=== PATIENT | male | born 1940 | race Caucasian/White ===

== ENCOUNTER 2019-07-14 14:25 | Outpatient (RCR) | payer MEDICARE, SELFPAY | END 2019-10-12 23:59 | disposition home or self-care (01) | LOC: ANHDMC 14:25 | PROVIDERS: PCP Family Medicine; Visit Provider Family Medicine | DX: E11.65 Type 2 diabetes mellitus with hyperglycemia (principal); Z71.89 Other specified counseling | CPT/HCPCS: G0108; G0109 ==

== ENCOUNTER 2019-10-14 13:06 | Outpatient (RCR) | payer MEDICARE, SELFPAY | END 2020-01-12 23:59 | disposition home or self-care (01) | LOC: ANHDMC 13:06 | PROVIDERS: PCP Family Medicine; Visit Provider Family Medicine | DX: E11.65 Type 2 diabetes mellitus with hyperglycemia (principal); Z71.89 Other specified counseling | CPT/HCPCS: G0108 ==

== ENCOUNTER 2021-06-01 13:48 | Emergency (ER) | payer MEDICARE, SELFPAY ==
[2021-06-01 13:54] VITALS: BP 155/74; PULSE 84; RESP 16; TEMP 36.2; O2SAT 99
--- NOTE | 2021-06-01 13:59 | ED.MALEGU ---
HPI - Male Genitourinary General Chief complaint: Urogenital-Male Stated complaint: UTI SYMPTOMS Source: patient Mode of arrival: ambulatory Limitations: no limitations History of Present Illness HPI Narrative: Patient is an 80-year-old male who presents with complaints of dysuria x1 day. Patient has a history of active prostate cancer. Patient reports calling PCP in the a.m. but was not called back until after PCP had left for the day. He reports history of UTI approximately 1 month prior. Denies fever chills or body aches. Denies all other complaints at this time. Patient's urologist is Related Data Home Medications Medication Instructions Recorded Confirmed abiraterone 250 mg tablet 1,000 mg PO DAILY 10/07/19 05/07/21 calcium acetate(phosphat bind) 667 667 mg PO BID tablet 10/07/19 05/07/21 mg tablet ergocalciferol (vitamin D2) 50,000 50,000 unit PO .Q1-MO. tablet 10/07/19 05/07/21 unit tablet prednisolone 5 mg tablet 5 mg PO DAILY 10/07/19 05/07/21 cyanocobalamin (vitamin B-12) 100 mcg IM MONTHLY 09/19/20 05/07/21 1,000 mcg/mL injection solution clobetasol 0.05 % topical ointment 1 applic TOPICAL DAILY 04/17/21 05/07/21 leuprolide (3 month) 22.5 mg (3 22.5 mg IM [id number] 04/17/21 05/07/21 month) intramuscular syringe kit Allergies Allergy/AdvReac Type Severity Reaction Status Date / Time No Known Allergies Allergy Verified 06/01/21 14:02 Review of Systems Review of Systems: CONSTITUTIONAL: Denies fever, chills, or sweats. EYES: Denies visual changes, redness, or discharge. ENT: Denies rhinorrhea, congestion, sore throat, or otalgia. CARDIOVASCULAR: Denies chest pain, palpitations, or edema. RESPIRATORY: Denies cough or dyspnea. GASTROINTESTINAL: Denies abdominal pain, nausea, vomiting, or diarrhea. GENITOURINARY: Reports dysuria and frequency SKIN: Denies rash or itching. MUSCULOSKELETAL: Denies back pain, joint pain, or myalgia. NEUROLOGIC: Denies headache, numbness, dizziness, or weakness. PSYCHIATRIC: Denies anxiety or depression. [facility] Past Medical History Medical History Arthritis Diabetes mellitus Dysuria Hyperlipidemia Hypertension Pneumonia Prostate cancer Vein absent Surgical History Surgical History History of endoscopy History of tonsillectomy S/P colonoscopic polypectomy Family History Family History Father Family history of Alzheimer's disease Acute myocardial infarction Mother Family history of malignant neoplasm of breast in first degree relative Cerebrovascular accident Sibling Family history of scoliosis Social History Social History Smoking status: Never smoker Second hand tobacco smoke exposure: No Alcohol intake: current Drinks per week: 1 Substance use: never Substance use type: does not use Gender identity (if verbalized by the patient): Male Comments At the time of signature, I have reviewed and agree with nursing past medical, surgical, social, and family history unless otherwise noted. Please see nursing chart for further information. There is no relevant family history pertinent to the presenting complaint. Exam Narrative: GENERAL: Well-appearing, well-nourished, and in no acute distress. HEAD: Normocephalic, atraumatic. EYES: EOMI. No redness or drainage. Conjunctiva are normal. ENT: Mucous membranes pink and moist. CHEST: No respiratory distress. HEART: Regular rate and rhythm. EXTREMITIES: Normal range of motion. SKIN: Warm, dry, no rash. NEURO: No focal deficits. Alert and oriented x3. Gait steady. PSYCH: Normal affect. No signs of depression or anxiety. Course Vital Signs Vital signs: Vital Signs Temperature 36.2 C L 06/01/21 13:54 Pulse Rate 84 06/01/21 13:54 Respiratory Rate 16
== END 2021-06-01 14:21 | disposition home or self-care (01) ==
PROVIDERS: Emergency Provider Nurse Practitioner; PCP Internal Medicine
DX: N30.01 Acute cystitis with hematuria (principal); M19.90 Unspecified osteoarthritis, unspecified site; E11.9 Type 2 diabetes mellitus without complications; E78.5 Hyperlipidemia, unspecified; C61 Malignant neoplasm of prostate
CPT/HCPCS: 81003; 87077; 87086; 87186; 99213; G0463

== ENCOUNTER 2022-04-17 14:06 | Outpatient (CLI) | payer MEDICARE, SELFPAY ==
[2022-04-17 19:22] LABS: Basophils Percent Auto 0.3 % (0.2-1.2); Eosinophils Absolute Auto 0.1 K/mm3 (0-0.3); Eosinophils Percent Auto 0.9 % (0-4.4); Hematocrit 42.6 % (42.0-52.0); Hemoglobin 13.3 g/dL (14.0-18.0); Immature Granulocyte Absolute 0.02 K/mm3 (0.00-0.031); Immature Granulocyte Percent A 0.3 % (0-0.5); Lymphocytes Absolute Auto 0.74 K/mm3 (0.9-3.2); Lymphocytes Percent Auto 10.8 % (18.3-44.2); Mean Corpuscular HGB Conc 31.2 g/dl (32-36); Mean Corpuscular Hemoglobin 28.7 pg (26-34); Mean Corpuscular Volume 91.8 fl (80-100); Mean Platelet Volume 11.2 fl (7.4-10.4); Monocytes Absolute Auto 0.5 K/mm3 (0.1-0.6); Monocytes Percent Auto 7.1 % (2.6-8.5); Neutrophils Absolute Auto 5.5 K/mm3 (1.3-6.7); Neutrophils Percent Auto 80.6 % (45.5-73.1); Platelet Count Result 175 k/mm3 (150-375); Red Blood Count 4.64 M/mm3 (4.6-6.20); Red Cell Distribution Width 14.2 % (11.5-14.5); White Blood Count 6.9 K/mm3 (4.5-10.0)
[2022-04-17 20:00] LABS: Alanine Aminotransferase 31 U/L (6-50); Albumin Level 4.3 g/dL (3.5-5.1); Alkaline Phosphatase 58 U/L (38-126); Anion Gap 8 mmol/L (8-16); Aspartate Amino Transferase 28 U/L (17-59); Bilirubin,Total 0.5 mg/dL (0.2-1.3); Blood Urea Nitrogen 19 mg/dL (9-20); Calcium 9.9 mg/dL (8.4-10.2); Carbon Dioxide 28 mmol/L (22-30); Chloride 101 mmol/L (98-107); Cholesterol 138 mg/dL (0-200); Estimated Glomerular Filt Rate > 60; Glucose 197 mg/dL (65-110); HDL Direct 36 mg/dL; Potassium 5.2 mmol/L (3.4-5.0); Sodium 137 mmol/L (137-145); Triglycerides 191 mg/dL (<150)
[2022-04-17 20:12] LABS: Hemoglobin A1C 6.5 % (<5.7)
[2022-04-17 20:24] LABS: LDL Cholesterol Direct 68 mg/dL
== END 2022-04-17 14:07 | disposition home or self-care (01) ==
LOC: ANHGOSHLAB 14:18
PROVIDERS: PCP Internal Medicine; Visit Provider Internal Medicine
DX: E11.9 Type 2 diabetes mellitus without complications (principal); E78.5 Hyperlipidemia, unspecified; I10 Essential (primary) hypertension; C61 Malignant neoplasm of prostate; C79.51 Secondary malignant neoplasm of bone
CPT/HCPCS: 36415; 80053; 80061; 83036; 85025

== ENCOUNTER 2022-10-08 12:15 | Emergency (ER) | payer MEDICARE, SELFPAY ==
--- NOTE | ~2022-10-08 | XR_ITS ---
EXAMINATION: XR ankle RT min 3V DATE: 10/08/2022 13:01 INDICATION: Lateral right ankle pain and swelling post recent fall TECHNIQUE: Anteroposterior, oblique, mortise, and lateral views of the right ankle were obtained. COMPARISON: None. FINDINGS: Alignment is normal. No fracture. Mild osteoarthritis at the talonavicular joint with accessory os n aviculare at the dorsal aspect the joint space. Small Achilles and plantar calcaneal spur is an addit ional small despite at the base of the fifth metatarsal where diffuse soft tissue swelling about the ankle most prominent laterally. No ankle joint effusion. IMPRESSION: 1. Mild degenerative skeletal changes. No acute osseous abnormality. Reviewed, dictated and finalized at location A. ARCH COORDINATOR
--- NOTE | ~2022-10-08 | XR_ITS ---
EXAMINATION: XR lumbar spine 2-3V DATE: 10/08/2022 13:02 INDICATION: Low back pain after fall TECHNIQUE: Anteroposterior and lateral views of the lumbar spine, and cone-down lateral view of the l umbosacral junction were obtained. COMPARISON: CT, 04/02/2019 FINDINGS: There are 2 mm of retrolisthesis of L2 on L3 and L3 on L4. The vertebral body heights are m aintained. There is severe loss of intervertebral disc space height from L2-3 through L5-S1. There is no fracture. Small degenerative osteophytes project from the anterior endplates of multiple vertebra l bodies. Upper abdominal calcifications are consistent with chronic pancreatitis. There is moderate osteoarthritis of the hips. IMPRESSION: 1. Severe lumbar spondylosis without acute findings or significant interval change. Reviewed, dictated and finalized at location L. T VENDOR IMPRESSION: 1. Severe lumbar spondylosis without acute findings or significant interval kacie nge.
[2022-10-08 12:27] VITALS: BP 138/81; PULSE 82; RESP 16; TEMP 36.4; O2SAT 98
--- NOTE | 2022-10-08 12:52 | ED.GENADULT ---
HPI - General Adult General Chief complaint: Back Pain/Injury Stated complaint: back injury Source: patient, family and RN notes reviewed History of Present Illness HPI narrative: 82-year-old male presents to Urgent Care with son at side. patient states he missed a step at the top the staircase last night causing him to fall down the stairs. patient states he landed on his mid lower back and mostly his right mid back. Patient reported right ankle pain last night. Patient states most of his pain is in his lower to mid back which radiates upwards with any movement. patient denies loss of consciousness. Patient does have an abrasion to his right outer orbit. Patient denies any headache, dizziness, numbness, tingling, chest pain, shortness of breath, vomiting, abdominal pain, painful breathing, or hematuria. Patient denies any recent illness. patient has taken ibuprofen and Tylenol with mild relief. Some parts of this dictation were generated by voice recognition software and may contain typographical and/or grammatical inaccuracies. Related Data Home Medications Medication Instructions Recorded Confirmed abiraterone 250 mg tablet 1,000 mg PO DAILY 10/07/19 10/08/22 calcium acetate(phosphat bind) 667 667 mg PO BID 10/07/19 10/08/22 mg tablet ergocalciferol (vitamin D2) 50,000 50,000 unit PO .Q1-MO. 10/07/19 10/08/22 unit tablet leuprolide (3 month) 22.5 mg (3 22.5 mg IM [id number] 04/22/22 10/08/22 month) intramuscular syringe kit (Lupron Depot) prednisone 5 mg tablet 5 mg PO DAILY 10/08/22 10/08/22 Allergies Allergy/AdvReac Type Severity Reaction Status Date / Time No Known Allergies Allergy Verified 10/08/22 12:22 Review of Systems Review of Systems: CONSTITUTIONAL: Denies fever, chills, or sweats. EYES: Denies visual changes, redness, or discharge. ENT: Denies otalgia and sore throat CARDIOVASCULAR: Denies chest pain, palpitations, or edema. RESPIRATORY: Denies cough or dyspnea. GASTROINTESTINAL: Denies abdominal pain, nausea, vomiting, or diarrhea. GENITOURINARY: Denies dysuria or hematuria. SKIN: Denies rash or itching. MUSCULOSKELETAL: reports lower to mid back pain. also reports right ankle swelling present. NEUROLOGIC: Denies headache, numbness, or weakness. [facility] Past Medical History Medical History (Updated 10/08/22 @ 13:39 by Lyndsey Shoemaker APRN) Arthritis Diabetes mellitus Dysuria Hyperlipidemia Hypertension Malignant neoplasm of prostate metastatic to bone Pneumonia Prostate cancer Vein absent Surgical History Surgical History History of endoscopy History of tonsillectomy S/P colonoscopic polypectomy Family History Family History Father Family history of Alzheimer's disease Acute myocardial infarction Mother Family history of malignant neoplasm of breast in first degree relative Cerebrovascular accident Sibling Family history of scoliosis Social History Social History Smoking status: Never smoker Second hand tobacco smoke exposure: No Alcohol intake: current Drinks per week: 1 Substance use: never Substance use type: does not use Living arrangements: with family Occupation/Education: retired Gender identity (if verbalized by the patient): Male Comments At the time of my signature, I reviewed and agree with the nursing past medical, surgical, social, and family history. There is no relevant family history pertinent to the patient complaint. Exam Narrative: GENERAL: This is a well-nourished, well-developed patient, in no apparent distress. HEAD: normocephalic, atraumatic. EYES: PERRL. Sclera clear/white. Vision is grossly intact. EARS: External ears normal, auditory canals clear and without drainage, TMs normal without perforation. Hearing grossly intact. NOSE:
== END 2022-10-08 13:44 | disposition home or self-care (01) ==
PROVIDERS: Emergency Provider Nurse Practitioner Family; PCP Internal Medicine
DX: S39.012A Strain of muscle, fascia and tendon of lower back, initial encounter (principal); W10.9XXA Fall (on) (from) unspecified stairs and steps, initial encounter; M47.816 Spondylosis without myelopathy or radiculopathy, lumbar region; S93.401A Sprain of unspecified ligament of right ankle, initial encounter; M19.90 Unspecified osteoarthritis, unspecified site; E11.9 Type 2 diabetes mellitus without complications; E78.5 Hyperlipidemia, unspecified; I10 Essential (primary) hypertension; Z85.46 Personal history of malignant neoplasm of prostate; Z85.830 Personal history of malignant neoplasm of bone
CPT/HCPCS: 72100; 73610; 99214; G0463

== ENCOUNTER 2022-10-23 13:48 | Outpatient (CLI) | payer MEDICARE, SELFPAY ==
[2022-10-23 20:53] LABS: Hemoglobin A1C 6.5 % (<5.7)
== END 2022-10-23 13:49 | disposition home or self-care (01) ==
LOC: ANHGOSHLAB 13:50
PROVIDERS: PCP Internal Medicine; Visit Provider Nurse Practitioner
DX: E11.9 Type 2 diabetes mellitus without complications (principal); Z79.4 Long term (current) use of insulin
CPT/HCPCS: 36415; 83036

== ENCOUNTER 2023-04-28 11:07 | Outpatient (CLI) | payer MEDICARE, SELFPAY ==
[2023-04-28 18:10] LABS: Basophils Percent Auto 0.3 % (0.2-1.2); Eosinophils Absolute Auto 0.1 K/mm3 (0-0.3); Eosinophils Percent Auto 0.7 % (0-4.4); Hematocrit 41.2 % (42.0-52.0); Hemoglobin 12.8 g/dL (14.0-18.0); Immature Granulocyte Absolute 0.03 K/mm3 (0.00-0.031); Immature Granulocyte Percent A 0.4 % (0-0.5); Lymphocytes Absolute Auto 0.63 K/mm3 (0.9-3.2); Lymphocytes Percent Auto 8.5 % (18.3-44.2); Mean Corpuscular HGB Conc 31.1 g/dl (32-36); Mean Corpuscular Hemoglobin 28.3 pg (26-34); Mean Corpuscular Volume 91.2 fl (80-100); Mean Platelet Volume 11.2 fl (7.4-10.4); Monocytes Absolute Auto 0.5 K/mm3 (0.1-0.6); Monocytes Percent Auto 6.5 % (2.6-8.5); Neutrophils Absolute Auto 6.2 K/mm3 (1.3-6.7); Neutrophils Percent Auto 83.6 % (45.5-73.1); Platelet Count Result 193 k/mm3 (150-375); Red Blood Count 4.52 M/mm3 (4.6-6.20); Red Cell Distribution Width 14.5 % (11.5-14.5); White Blood Count 7.4 K/mm3 (4.5-10.0)
[2023-04-28 18:25] LABS: Alanine Aminotransferase 24 U/L (6-50); Albumin Level 4.3 g/dL (3.5-5.1); Alkaline Phosphatase 88 U/L (38-126); Anion Gap 8 mmol/L (8-16); Aspartate Amino Transferase 32 U/L (17-59); Bilirubin,Total 0.6 mg/dL (0.2-1.3); Blood Urea Nitrogen 22 mg/dL (9-20); Carbon Dioxide 28 mmol/L (22-30); Chloride 104 mmol/L (98-107); Cholesterol 144 mg/dL (0-200); Estimated Glomerular Filt Rate > 60; Glucose 136 mg/dL (65-110); HDL Direct 41 mg/dL; Sodium 140 mmol/L (137-145); Triglycerides 120 mg/dL (<150)
[2023-04-28 18:37] LABS: LDL Cholesterol Direct 81 mg/dL
[2023-04-28 19:27] LABS: Folic Acid > 20.0 ng/mL (2.76->20)
[2023-04-28 20:11] LABS: Hemoglobin A1C 6.3 % (<5.7)
== END 2023-04-28 11:08 | disposition home or self-care (01) ==
LOC: ANHGOSHLAB 11:09
PROVIDERS: PCP Internal Medicine; Visit Provider Nurse Practitioner
DX: E11.42 Type 2 diabetes mellitus with diabetic polyneuropathy (principal); Z79.4 Long term (current) use of insulin
CPT/HCPCS: 36415; 80053; 80061; 82607; 82746; 83036; 85025

== ENCOUNTER 2023-10-06 14:05 | Outpatient (CLI) | payer MEDICARE, SELFPAY ==
[2023-10-06 21:29] LABS: Hemoglobin A1C 6.8 % (<5.7)
== END 2023-10-06 14:06 | disposition home or self-care (01) ==
LOC: ANHGOSHLAB 14:07
PROVIDERS: PCP Internal Medicine; Visit Provider Nurse Practitioner
DX: E11.9 Type 2 diabetes mellitus without complications (principal)
CPT/HCPCS: 36415; 83036

== ENCOUNTER 2024-02-04 10:58 | Outpatient (CLI) | payer MEDICARE, SELFPAY ==
[2024-02-04 19:31] LABS: Basophils Percent Auto 0.6 % (0.2-1.2); Eosinophils Absolute Auto 0.2 K/mm3 (0-0.3); Eosinophils Percent Auto 2.4 % (0-4.4); Hematocrit 43.3 % (42.0-52.0); Hemoglobin 13.6 g/dL (14.0-18.0); Immature Granulocyte Absolute 0.02 K/mm3 (0.00-0.031); Immature Granulocyte Percent A 0.3 % (0-0.5); Lymphocytes Absolute Auto 1.23 K/mm3 (0.9-3.2); Lymphocytes Percent Auto 17.7 % (18.3-44.2); Mean Corpuscular HGB Conc 31.4 g/dl (32-36); Mean Corpuscular Hemoglobin 28.3 pg (26-34); Mean Platelet Volume 11.3 fl (7.4-10.4); Monocytes Absolute Auto 0.5 K/mm3 (0.1-0.6); Monocytes Percent Auto 7.5 % (2.6-8.5); Neutrophils Percent Auto 71.5 % (45.5-73.1); Platelet Count Result 210 k/mm3 (150-375); Red Blood Count 4.81 M/mm3 (4.6-6.20); Red Cell Distribution Width 13.6 % (11.5-14.5)
[2024-02-04 20:32] LABS: Vitamin D 25 Hydroxy 36.9 ng/mL
[2024-02-04 20:55] LABS: Alanine Aminotransferase 31 U/L (6-50); Albumin Level 4.3 g/dL (3.5-5.1); Alkaline Phosphatase 84 U/L (38-126); Anion Gap 9 mmol/L (4-12); Aspartate Amino Transferase 35 U/L (17-59); Bilirubin,Total 0.8 mg/dL (0.2-1.3); Blood Urea Nitrogen 17 mg/dL (9-20); Calcium 9.8 mg/dL (8.4-10.2); Carbon Dioxide 25 mmol/L (22-30); Chloride 105 mmol/L (98-107); Cholesterol 149 mg/dL (0-200); Estimated Glomerular Filt Rate > 60; Glucose 156 mg/dL (65-110); HDL Direct 39 mg/dL; Potassium 4.3 mmol/L (3.4-5.0); Sodium 139 mmol/L (137-145); Triglycerides 197 mg/dL (<150)
[2024-02-04 21:06] LABS: LDL Cholesterol Direct 82 mg/dL
[2024-02-04 21:25] LABS: Hemoglobin A1C 6.4 % (<5.7)
== END 2024-02-04 10:59 | disposition home or self-care (01) ==
PROVIDERS: PCP Internal Medicine; Visit Provider Nurse Practitioner
DX: E78.5 Hyperlipidemia, unspecified (principal); E11.69 Type 2 diabetes mellitus with other specified complication; E55.9 Vitamin D deficiency, unspecified; C61 Malignant neoplasm of prostate
CPT/HCPCS: 36415; 80053; 80061; 82306; 83036; 85025

== ENCOUNTER 2024-03-09 10:51 | Outpatient (CLI) | payer MEDICARE, SELFPAY ==
[2024-03-09 13:22] LABS: Basophils Percent Auto 0.4 % (0.2-1.2); Eosinophils Absolute Auto 0.1 K/mm3 (0-0.3); Eosinophils Percent Auto 2.7 % (0-4.4); Hematocrit 40.7 % (42.0-52.0); Immature Granulocyte Absolute 0.02 K/mm3 (0.00-0.031); Immature Granulocyte Percent A 0.4 % (0-0.5); Lymphocytes Absolute Auto 1.08 K/mm3 (0.9-3.2); Lymphocytes Percent Auto 20.9 % (18.3-44.2); Mean Corpuscular HGB Conc 31.9 g/dl (32-36); Mean Corpuscular Hemoglobin 28.7 pg (26-34); Mean Corpuscular Volume 89.8 fl (80-100); Mean Platelet Volume 11.1 fl (7.4-10.4); Monocytes Absolute Auto 0.4 K/mm3 (0.1-0.6); Monocytes Percent Auto 7.9 % (2.6-8.5); Neutrophils Absolute Auto 3.5 K/mm3 (1.3-6.7); Neutrophils Percent Auto 67.7 % (45.5-73.1); Platelet Count Result 192 k/mm3 (150-375); Red Blood Count 4.53 M/mm3 (4.6-6.20); Red Cell Distribution Width 13.6 % (11.5-14.5); White Blood Count 5.2 K/mm3 (4.5-10.0)
== END 2024-03-09 10:52 | disposition home or self-care (01) ==
PROVIDERS: PCP Internal Medicine; Visit Provider Radiology Radiation Oncology
DX: C61 Malignant neoplasm of prostate (principal)
CPT/HCPCS: 36415; 85025

== ENCOUNTER 2024-04-15 10:49 | Outpatient (CLI) | payer MEDICARE, SELFPAY ==
[2024-04-15 12:53] LABS: Basophils Percent Auto 0.4 % (0.2-1.2); Eosinophils Absolute Auto 0.1 K/mm3 (0-0.3); Eosinophils Percent Auto 2.8 % (0-4.4); Hematocrit 41.1 % (42.0-52.0); Hemoglobin 13.3 g/dL (14.0-18.0); Immature Granulocyte Absolute 0.01 K/mm3 (0.00-0.031); Immature Granulocyte Percent A 0.2 % (0-0.5); Lymphocytes Absolute Auto 1.03 K/mm3 (0.9-3.2); Lymphocytes Percent Auto 22.3 % (18.3-44.2); Mean Corpuscular HGB Conc 32.4 g/dl (32-36); Mean Corpuscular Hemoglobin 29.2 pg (26-34); Mean Corpuscular Volume 90.3 fl (80-100); Mean Platelet Volume 10.8 fl (7.4-10.4); Monocytes Absolute Auto 0.3 K/mm3 (0.1-0.6); Monocytes Percent Auto 7.4 % (2.6-8.5); Neutrophils Absolute Auto 3.1 K/mm3 (1.3-6.7); Neutrophils Percent Auto 66.9 % (45.5-73.1); Platelet Count Result 191 k/mm3 (150-375); Red Blood Count 4.55 M/mm3 (4.6-6.20); Red Cell Distribution Width 13.5 % (11.5-14.5); White Blood Count 4.6 K/mm3 (4.5-10.0)
[2024-04-15 13:27] LABS: Creatinine Urine 129.5 mg/dL
[2024-04-15 13:31] LABS: MALB Creatinine Ratio 57.1 mg/g (0-30)
== END 2024-04-15 10:50 | disposition home or self-care (01) ==
PROVIDERS: PCP Internal Medicine; Visit Provider Nurse Practitioner
DX: E11.9 Type 2 diabetes mellitus without complications (principal); Z79.4 Long term (current) use of insulin
CPT/HCPCS: 36415; 82043; 83036; 85025

== ENCOUNTER 2024-05-21 14:10 | Outpatient (CLI) | payer MEDICARE, SELFPAY ==
[2024-05-21 15:31] LABS: Basophils Percent Auto 0.4 % (0.2-1.2); Eosinophils Absolute Auto 0.1 K/mm3 (0-0.3); Eosinophils Percent Auto 2.6 % (0-4.4); Hematocrit 38.8 % (42.0-52.0); Hemoglobin 12.5 g/dL (14.0-18.0); Immature Granulocyte Absolute 0.01 K/mm3 (0.00-0.031); Immature Granulocyte Percent A 0.2 % (0-0.5); Lymphocytes Absolute Auto 0.94 K/mm3 (0.9-3.2); Lymphocytes Percent Auto 17.5 % (18.3-44.2); Mean Corpuscular HGB Conc 32.2 g/dl (32-36); Mean Corpuscular Hemoglobin 29.1 pg (26-34); Mean Corpuscular Volume 90.2 fl (80-100); Mean Platelet Volume 10.8 fl (7.4-10.4); Monocytes Absolute Auto 0.5 K/mm3 (0.1-0.6); Monocytes Percent Auto 8.6 % (2.6-8.5); Neutrophils Absolute Auto 3.8 K/mm3 (1.3-6.7); Neutrophils Percent Auto 70.7 % (45.5-73.1); Platelet Count Result 167 k/mm3 (150-375); White Blood Count 5.4 K/mm3 (4.5-10.0)
== END 2024-05-21 14:11 | disposition home or self-care (01) ==
LOC: ANHGOSHLAB 14:11
PROVIDERS: PCP Internal Medicine; Visit Provider Radiology Radiation Oncology
DX: C61 Malignant neoplasm of prostate (principal)
CPT/HCPCS: 36415; 85025

== ENCOUNTER 2024-06-23 10:56 | Outpatient (CLI) | payer MEDICARE, SELFPAY ==
[2024-06-23 17:04] LABS: Basophils Percent Auto 0.4 % (0.2-1.2); Eosinophils Absolute Auto 0.2 K/mm3 (0-0.3); Eosinophils Percent Auto 3.3 % (0-4.4); Hematocrit 39.7 % (42.0-52.0); Hemoglobin 12.7 g/dL (14.0-18.0); Immature Granulocyte Absolute 0.01 K/mm3 (0.00-0.031); Immature Granulocyte Percent A 0.2 % (0-0.5); Lymphocytes Absolute Auto 0.88 K/mm3 (0.9-3.2); Lymphocytes Percent Auto 18.4 % (18.3-44.2); Mean Corpuscular Hemoglobin 29.3 pg (26-34); Mean Corpuscular Volume 91.7 fl (80-100); Mean Platelet Volume 10.8 fl (7.4-10.4); Monocytes Absolute Auto 0.4 K/mm3 (0.1-0.6); Monocytes Percent Auto 8.8 % (2.6-8.5); Neutrophils Absolute Auto 3.3 K/mm3 (1.3-6.7); Neutrophils Percent Auto 68.9 % (45.5-73.1); Platelet Count Result 182 k/mm3 (150-375); Red Blood Count 4.33 M/mm3 (4.6-6.20); Red Cell Distribution Width 13.7 % (11.5-14.5); White Blood Count 4.8 K/mm3 (4.5-10.0)
== END 2024-06-23 10:57 | disposition home or self-care (01) ==
PROVIDERS: PCP Internal Medicine; Visit Provider Radiology Radiation Oncology
DX: C61 Malignant neoplasm of prostate (principal)
CPT/HCPCS: 36415; 85025

== ENCOUNTER 2024-07-30 10:27 | Outpatient (CLI) | payer MEDICARE, SELFPAY ==
[2024-07-30 18:58] LABS: Basophils Percent Auto 0.3 % (0.2-1.2); Eosinophils Absolute Auto 0.1 K/mm3 (0-0.3); Immature Granulocyte Absolute 0.02 K/mm3 (0.00-0.031); Immature Granulocyte Percent A 0.3 % (0-0.5); Lymphocytes Percent Auto 13.8 % (18.3-44.2); Mean Corpuscular HGB Conc 32.4 g/dl (32-36); Mean Corpuscular Hemoglobin 30.2 pg (26-34); Mean Platelet Volume 10.9 fl (7.4-10.4); Monocytes Absolute Auto 0.5 K/mm3 (0.1-0.6); Monocytes Percent Auto 7.8 % (2.6-8.5); Neutrophils Percent Auto 75.8 % (45.5-73.1); Platelet Count Result 178 k/mm3 (150-375); Red Blood Count 3.98 M/mm3 (4.6-6.20); Red Cell Distribution Width 13.9 % (11.5-14.5); White Blood Count 6.5 K/mm3 (4.5-10.0)
== END 2024-07-30 10:28 | disposition home or self-care (01) ==
LOC: ANHGOSHLAB 10:29
PROVIDERS: PCP Internal Medicine; Visit Provider Radiology Radiation Oncology
DX: C61 Malignant neoplasm of prostate (principal)
CPT/HCPCS: 36415; 85025

== ENCOUNTER 2024-07-30 10:42 | Emergency (ER) | payer MEDICARE, SELFPAY ==
--- NOTE | 2024-07-30 10:55 | ED_ITS ---
HPI - Skin/Abscess/Foreign Bdy General Chief complaint: Skin/Abscess/Foreign Body Stated complaint: stepped on a nail Time Seen by Provider: 07/30/24 10:58 Source: patient Mode of arrival: ambulatory Limitations: no limitations History of Present Illness HPI narrative: Kartik is a an 84-year-old male patient presenting to the clinic today with complaints a puncture wound to the midfoot of the right foot. He reports he stepped on a nail. Patient is diabetic. He denies any discomfort at this time. Area does not appear red or swollen or tender to palpation. No purulent discharge. Last tetanus was in 2016. Patient reports he is here for tetanus shot. States he clean the area with alcohol and apply triple antibiotic ointment and Band-Aid after it occurred yesterday Related Data Home Medications Medication Instructions Recorded Confirmed calcium carbonate (Calcium 600) 600 mg PO DAILY 10/13/23 07/30/24 cholecalciferol (vitamin D3) 1,250 1,250 mcg PO MONTHLY 10/13/23 07/30/24 mcg (50,000 unit) capsule radium Ra 223 dichloride 1,100 1,100 kbq IV MONTHLY 04/28/24 07/30/24 kBq/mL (30 microcurie/mL) intravenous soln (Xofigo) Allergies Allergy/AdvReac Type Severity Reaction Status Date / Time No Known Allergies Allergy Verified 07/30/24 10:54 Review of Systems Review of Systems: Pertinent positives per HPI. Patient denies any fever, chills, rash, headache, visual changes, dizziness, cough, runny nose, sore throat, shortness of breath, chest pain, palpitations, nausea, vomiting, diarrhea, constipation, abdominal pain, or any urinary issues. [facility] Past Medical History Medical History Arthritis Diabetes mellitus Dysuria Hyperlipidemia due to type 2 diabetes mellitus Hypertension Malignant neoplasm of prostate metastatic to bone Pneumonia Prostate cancer Vein absent Surgical History Surgical History History of endoscopy History of tonsillectomy S/P colonoscopic polypectomy Status post surgical removal of malignant neoplasm of skin Family History Family History Father Family history of Alzheimer's disease Acute myocardial infarction Mother Family history of malignant neoplasm of breast in first degree relative Cerebrovascular accident Sibling Family history of scoliosis Social History Social History Smoking status: Never smoker Second hand tobacco smoke exposure: No Alcohol intake: current Drinks per week: 1 Substance use: never Substance use type: does not use Lack of Transportation: No Lack of Food: Never True Current Housing: I Have Housing Concerned About Future Housing: No Difficulty Paying Gas/Electric Bills: No Difficulty Paying for Meds: No Currently Unemployed: No Education: Bachelor's Degree Difficulty w/ Childcare or Family Care: No Living arrangements: with family Occupation/Education: retired Gender identity (if verbalized by the patient): Male Comments At the time of my signature, I reviewed and agree with the nursing past medical, surgical, social, and family history. There is no relevant family history pertinent to the patient complaint. Exam Narrative: General: Well-developed, well nourished, in no apparent distress Head: Normocephalic, atraumatic. Cardio: Regular rate and rhythm, s1 and s2 normal, no murmur appreciated. Resp: Clear to auscultation bilaterally, no rhonchi, rales, wheezing or rubs. Integumentary: [place], warm, and dry, small puncture wound noted to the midfoot on the right foot. No erythema, tenderness to palpation, purulent discharge, or redness noted. Course Course Emergency Course: Portions of this record may have been created with voice recognition software. Level of Care: Express Care Visit Vital Signs Vital signs: Vital Signs Temperature 36.3 C L 07/30/24 10:56 Pulse Rate 96 07/30/24 10:56 Respiratory Rate 16 07/30/24 10:56 Blood Pressure 128/66 07/30/24 10:56 Pulse Oximetry 99 07/30/24 10:56 Temperature 36.3 C L 07/30/24 10:56 Pulse Rate 96 07/30/24 10:56 Respiratory Rate 16 07/30/24 10:56 Blood Pressure 128/66 07/30/24 10:56 Pulse Oximetry 99 07/30/24 10:56 Vital signs reviewed MDM - Skin/Abscess/Foreign Bdy MDM Narrative Medical decision making narrative: At the time of visit patient is resting comfortably on the exam table. Patient appears to be nontoxic. Plan: Patient has a noninfected puncture wound to the right midfoot. Discussed risks for foot infection due to with diabetes. Supportive measures were discussed with the patient and they voiced understanding discharge instructions and agrees to treatment plan. Return precautions reviewed Differential Diagnosis Differential diagnosis: Likely abscess of skin or subcutaneous tissue, cellulitis and other (Puncture wound, laceration) Discharge Plan Discharge Clinical Impression: Encounter for immunization, Puncture wound of foot Patient Disposition: Home, Self-Care Condition: Stable Instructions: Antibiotic Form, Puncture Wound in the Foot (ED) Additional Instructions: Tdap given in the clinic today Keep a close watch on the wound-watch for signs and symptoms of infection Keep wound clean and dry Wash daily with soap and water and pat dry Watch for signs and symptoms of infection- redness, streaking, swelling, purulent discharge, or increase in pain. If you develop these symptoms go to the ER Follow up with your PCP in 3 days for wound check Prescriptions: No Action mometasone 0.1 % cream 1 applic TOPICAL DAILY PRN (Reason: skin irritation) Qty: 45 1RF calcium carbonate [Calcium 600] 600 mg calcium (1,500 mg) tablet 600 mg PO DAILY cholecalciferol (vitamin D3) 1,250 mcg (50,000 unit) capsule 1,250 mcg PO MONTHLY Xofigo 1,100 kBq/mL(30 microcurie/mL) solution 1,100 kbq IV MONTHLY Patient Comments: Has roughly 4 months left Next one is on Friday04/30/24 (DME) pen needle, diabetic [TechLITE Pen Needle] 31 gauge x 5/16 needle See Rx Instructions .ROUTE .MEDSUPPLY Qty: 100 4RF Rx Instructions: Use to inject insulin enalapril maleate 20 mg tablet See Rx Instructions .ROUTE .COMPLEX Qty: 180 3RF Dose Instruction: TAKE 1 TABLET BY MOUTH DAILY Rx Instructions: TAKE 1 TABLET BY MOUTH DAILY (DME) pen needle, diabetic [TechLITE Pen Needle] 32 gauge x 1/4 needle See Rx Instructions .ROUTE .COMPLEX Qty: 100 2RF Dose Instruction: USE TO INJECT INSULIN Rx Instructions: USE TO INJECT INSULIN (DME) pen needle, diabetic [BD Shahana 2nd Gen Pen Needle] 32 gauge x 5/32 needle See Rx Instructions .Route Qty: 100 3RF Rx Instructions: As directed insulin glargine [Lantus Solostar U-100 Insulin] 100 unit/mL (3 mL) insulin pen 5 unit subcut QPM Qty: 15 3RF (DME) Blood Glucose Test Strip See Rx Instructions .ROUTE .MEDSUPPLY Qty: 300 4RF Rx Instructions: check twice daily amlodipine 10 mg tablet 10 mg PO DAILY Qty: 90 3RF metformin 500 mg tablet extended release 24 hr 2,000 mg PO QPM Qty: 360 1RF pravastatin 20 mg tablet 20 mg PO DAILY Qty: 90 1RF potassium chloride 10 mEq capsule, extended release 10 meq PO BID Qty: 180 1RF Follow-up/Referrals: Kunal Jensen DO [Primary Care Provider] - Time of Disposition: 10:59 Quality NIHSS Nursing Documentation ED NIHSS nursing documentation: reviewed/agree
[2024-07-30 10:56] VITALS: BP 128/66; PULSE 96; RESP 16; TEMP 36.3; O2SAT 99
[2024-07-30] MEDS: TETANUS,DIPHTHERIA,AC PERTUSSIS ADULT (0.5 ML) BOOSTRIX IM (11:04)
== END 2024-07-30 11:17 | disposition home or self-care (01) ==
PROVIDERS: Emergency Provider Nurse Practitioner Family; PCP Internal Medicine
DX: S91.331A Puncture wound without foreign body, right foot, initial encounter (principal); E11.9 Type 2 diabetes mellitus without complications; I10 Essential (primary) hypertension; Z85.46 Personal history of malignant neoplasm of prostate; Z23 Encounter for immunization; W45.0XXA Nail entering through skin, initial encounter
CPT/HCPCS: 36415; 85025; 90471; 90715; 99212; G0463

== ENCOUNTER 2024-08-17 10:05 | Outpatient (CLI) | payer MEDICARE, SELFPAY ==
--- NOTE | ~2024-08-17 | US_ITS ---
LEFT LOWER EXTREMITY VENOUS ULTRASOUND Ordering provider: Kunal Jensen DO History: . R60.0 - Localized edema . Comparison: None. FINDINGS: --COMMON FEMORAL: Patent and free of thrombus. Normal compressibility, phasic flow and augmentation. --PROXIMAL SUPERFICIAL FEMORAL: Patent and free of thrombus. Normal compressibility, phasic flow and augmentation. --DISTAL SUPERFICIAL FEMORAL: Patent and free of thrombus. Normal compressibility, phasic flow and au gmentation. --POPLITEAL: Patent and free of thrombus. Normal compressibility, phasic flow and augmentation. --POSTERIOR TIBIAL: Patent and free of thrombus. Normal compressibility, phasic flow and augmentation . IMPRESSION: Negative left lower extremity venous US. No deep vein thrombosis. Reviewed, dictated and finalized at location A. KEEPER
== END 2024-08-17 10:06 | disposition home or self-care (01) ==
PROVIDERS: PCP Internal Medicine; Visit Provider Internal Medicine
DX: R60.0 Localized edema (principal)
CPT/HCPCS: 93971

== ENCOUNTER 2024-11-02 11:10 | Outpatient (CLI) | payer MEDICARE, SELFPAY ==
--- OUTSIDE RECORDS SUMMARY | 2024-11-02 13:18 | XMS_ITS | Encounter Summary ---
Author Organization [facility] Health Address [address] [place] [address] Care Team Providers Care Mold Repairer Name Role Phone Huey Resendiz MD Primary Care Provider [phone] Marychuy Posey MD Primary Care Provider [phone] Kunal Jensen DO Primary Care Provider Marcie Wells APRN-INSURANCE SERVICE REPRESENTATIVE Unavailable Unavailab le Norm Bridges MD Unavailable Marcie Wells Unavailable Unavailab le Encounter Details Date Type Department Care Team (Late st Contact Info) Description 09/24/2017 [facility] Outpatient Visit [facility] [address] [place] [address] Kunal Sorensen MD [address] [place] [id number] Social History Tobacco Use Types Packs/Day Years Used Date Smoking Tobacco: Never Smokeless Tobacco: Never Alcohol Use Standard Drinks/Week Comments Yes 0 (1 standard drink = 0.6 oz pur e alcohol) social Sex and Gender Information Value Date Recorded Sex Assigned at Not on file Gender Identity Not on file Sexual Orientation Not on file documented as of this encounter Functional Status Functional Status Response Date of Assess ment Is person deaf or have serious hearing difficult y? No 02/12/2017 Is person blind or have serious difficulty seein g? No 02/12/2017 Does person have serious dif ficulty walking/climbing stairs? No 02/12/2017 Does person have difficulty dressing/bathing? No 02/12/2017 Does person have difficulty doing errands alone? No 02/12/2017 Cognitive Status Response Date of Assessm ent Does person have difficulty concentrating/remembering/making decisions? No 02/12/2017 documented as of this encounter Plan of Treatment Upcoming Encounters Date Type Department Care Team (Late st Contact Info) Description 11/25/2024 11:30 AM CDT Documentation [facility] [address] [place] [phone] 11/25/2024 11:50 AM CDT Office Visit [facility] [place] [address] [place] [phone] Ronna Alexander, COMPUTER CONSULTANT-INSURANCE SERVICE REPRESENTATIVE [address] [place] [phone] 11/25/2024 11:50 AM CDT Appointment [facility] [address] [place] [address] Daysi Osorio MD [address] [place] [address] Felisha Rucker APRN-INSURANCE SERVICE REPRESENTATIVE [address] [place] [phone] Ronna Alexander, COMPUTER CONSULTANT-INSURANCE SERVICE REPRESENTATIVE [address] [place] [phone] documented as of this encounter Visit Diagnoses Not on filedocumented in this encounter Care Teams Mold Repairer Relationship Specialty Start Date End Date Huey Resendiz MD [address] [place] [phone] PCP - General Internal Medicine 02/06/17 03/04/18 Marychuy Posey MD [address] [address] PCP - General Family Medicine 04/22/19 09/24/20 Kunal Jensen DO [address] [address] PCP - General Internal Medicine 09/25/20 Marcie Wells APRN-INSURANCE SERVICE REPRESENTATIVE PCP - Attributed-MSSP 09/08/20 09/27/21 Marcie Wells APRN-INSURANCE SERVICE REPRESENTATIVE PCP - Attributed-MSSP 11/06/22 03/02/24 [place] [id number] [address] Physical Medicine and Rehabilitation 02/05/23 documented as of this encounter
--- OUTSIDE RECORDS SUMMARY | 2024-11-02 13:18 | XMS_ITS | Clinical Summary ---
Author Organization [facility] [employer] Address [address] [place] [address] Care Team Providers Care Hotel Services Sales Representative Name Role Phone Kunal Jensen DO Primary Care Provider [phone] Norm Bridges MD Unavailable [phone] Source Comments [facility] [employer],non-owned Affiliates and Associated Physician Practices is amultiple site organization consisting of ambulatory clinics and hospital sitesin [place], [place], [place] and [place]. This disclosure is being madepursuant to the Care Everywhere program and may not contain all information available regarding this patient. Last updated 18.[facility] [employer] Allergies No known active allergies Medications * Be aware that medications may not be up to date on this document. Alwaysverify current medications with the patient. Medication Sig Dispensed Refills Start Date End Date Status enalapril (VASOTEC) 20 MG tablet Take 1 (one) tablet by mouth once daily 4 12/09/2016 Active mometasone (ELOCON) 0.1 % cream Apply 1 Dose to affected area once daily as needed 6 03/03/2017 Active Calcium Carbonate (CALCIUM 600 PO) Take 600 mg by mouth once daily Active pravastatin (PRAVACHOL) 20 MG tablet Take 1 (one) tablet by mouth once daily 4 10/16/2017 Active MICRO-K 10 MEQ capsule Take 1 capsule by mouth daily with breakfast 30 capsule 5 01/28/2019 Active Additional Information Patient taking differently:10 mEq Oral2 TIMES DAILY WITH MEALS, Reported on 07/16/2023 metFORMIN CR 24hr modified (GLUMETZA) 1000 MG (MOD) tablet Take 4 (four) tablets by mouth daily with dinner Active EASY TOUCH PEN NEEDLES 31G X 5 MM needle 1 (one) Each by Injection route as directed 02/01/2021 Active insulin glargine (Lantus/Semglee) 100 units/ml injection Inject 6 (six) Units to 10 (ten) Units subcutaneously at bedtime Active acetaminophen (Tylenol) 500 MG tablet Take 1 (one) tablet to 2 (two) tablets by mouth every 4 hours as needed for Fever or Pain Maximum allowable Acetaminophen amount = 4 Grams (4000 mg) / 24 hours. QDAY Active Accu-Chek Guide test strip Use 1 (one) strip as directed 11/06/2023 Active VITAMIN D PO Take 5,000 Units by mouth once daily Active hydroCHLOROthiazi de (Hydrodiuril) 25 MG tablet Take 1 (one) tablet by mouth once daily Active bicalutamide (Casodex) 50 MG tablet TAKE 1 TABLET BY MOUTH ONCE DAILY 90 tablet 10/03/2024 Active Active Problems Problem Noted Date Diagnosed Date High risk medications (not anticoagulants) long- term use 08/11/2024 Thrombocytopenia 12/26/2020 Overview (12/26/2020): 03/27/2020 Dr. 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 Jo CARRERA Malignant neoplasm of prostate 01/14/2017 Cancer Staging:Clinical stage from 11/19/2016:Stage IIA(T1c, N0, M0, PSA: Less than 10, [place] 7) - Signed by Kunal Sorensen MD on 02/11/2017 Pathologic stage from 09/22/2017:Stage IV(TX, NX, M1b, PSA: 20 or greater) - Signed by Daysi Osorio MD on 09/22/2017 Overview (12/26/2020): 12/25/2020 OV, Dr. Osorio Encounters Date Type Department Care Team Description 10/28/2024 12:00 PM SALES OPERATIONS MANAGER Office Visit [address] [place] [phone] Daysi Osorio MD Malignant neoplasm of prostate (HCC) (Primary Dx); Cancer, metastatic to bone (HCC); High risk medications (not anticoagulants) long-term use; B12 deficiency 10/28/2024 11:42 AM SALES OPERATIONS MANAGER - 10/28/2024 11:59 PM SALES OPERATIONS MANAGER Hospital Encounter [facility] Infusion [place] [facility] [address] [place] [address] Daysi Osorio MD Hendrix, Jennifer ARTIFICIAL STONE APPLICATOR-INSPECTOR PENETRANT Catherine, Ronna Azar ARTIFICIAL STONE APPLICATOR-INSPECTOR PENETRANT Discharge Disposition: Home or Self Care 10/02/2024 Refill [place] [address] [place] [address] Daysi Osorio MD Refill Request 09/30/2024 1:00 PM SALES OPERATIONS MANAGER Office Visit [place] [id number] [address] Daysi Osorio MD Malignant neoplasm of prostate (HCC) (Primary Dx); High risk medications (not anticoagulants) long-term use; Cancer, metastatic to bone (HCC); B12 deficiency 09/30/2024 12:41 PM SALES OPERATIONS MANAGER - 09/30/2024 11:59 PM SALES OPERATIONS MANAGER Hospital Encounter [facility] [address] [address] Daysi Osorio MD Hendrix, Jennifer, ARTIFICIAL STONE APPLICATOR-INSPECTOR PENETRANT Catherine, Ronna Azar ARTIFICIAL STONE APPLICATOR-INSPECTOR PENETRANT Discharge Disposition: Home or Self Care 09/30/2024 Travel 09/24/2024 11:06 AM SALES OPERATIONS MANAGER - 09/24/2024 11:59 PM SALES OPERATIONS MANAGER Hospital Encounter [facility] - PET CT [address] [place] [address] Ronna Alexander APRN-CNP Discharge Disposition: Home or Self Care 08/11/2024 1:50 PM SALES OPERATIONS MANAGER Office Visit [facility] [address] [place] [phone] Ronna Alexander APRN-CNP Malignant neoplasm of prostate (HCC) (Primary Dx); High risk medications (not anticoagulants) long-term use 08/11/2024 1:34 PM SALES OPERATIONS MANAGER - 08/11/2024 11:59 PM SALES OPERATIONS MANAGER Hospital Encounter [facility] Infusion Center [facility] [address] [place] [address] Daysi Osorio MD Hendrix, Jennifer, Ronna Villeda APRN-CNP Discharge Disposition: Home or Self Care 08/11/2024 Travel from Last 3 Months Immunizations Name Administration Dates Next Due INFLUENZA VACCINE, ADJUVANTE D, QUADR. (FLUAD QUADRIVALENT; 65Y+) (AIIV4) 06/14/2022 RSV AREXVY 60YR+ 0.5ML 06/03/2024 Family History Medical History Relation Name Comments CVA Mother first one at 85 , second one three months later causing Relation Name Status Comments Mother Social History Tobacco Use Types Packs/Day Years Used Date Smoking Tobacco: Never Smokeless Tobacco: Never Tobacco Cessation:Counseling Given: Not Answered Alcohol Use Standard Drinks/Week Comments Yes 0 (1 standard drink = 0.6 oz pur e alcohol) social PHQ-2 Answer Date Recorded Patient Health Questionnaire-2 Score 0 10/28/2024 Sex and Gender Information Value Date Recorded Sex Assigned at Not on file Gender Identity Not on file Sexual Orientation Not on file Last Filed Vital Signs Vital Sign Reading Time Taken Comments Blood Pressure 138/78 10/28/2024 12:33 PM SALES OPERATIONS MANAGER Pulse 105 10/28/2024 12:33 PM SALES OPERATIONS MANAGER Temperature 36.1 C (97 F) 10/28/2024 12:33 PM SALES OPERATIONS MANAGER Respiratory Rate 18 10/28/2024 12:33 PM SALES OPERATIONS MANAGER Oxygen Saturation 95% 10/28/2024 12:33 PM SALES OPERATIONS MANAGER Inhaled Oxygen Concentration - - Weight 110.2 kg (243 lb) 10/28/2024 12:07 PM SALES OPERATIONS MANAGER Height 185.4 cm (6' 1 ) 10/28/2024 12:07 PM SALES OPERATIONS MANAGER Body Mass Index 32.06 10/28/2024 12:07 PM SALES OPERATIONS MANAGER Plan of Treatment Upcoming Encounters Date Type Department Care Team (Late st Contact Info) Description 11/25/2024 11:30 AM CDT Documentation [facility] [address] [place] [phone] 11/25/2024 11:50 AM CDT Office Visit [facility] [address] [place] [phone] Ronna Alexander, ARTIFICIAL STONE APPLICATOR-INSPECTOR PENETRANT [address] [place] [phone] 11/25/2024 11:50 AM CDT Appointment [facility] Infusion Center F [address] [place], [place] [phone] Daysi Osorio MD [address] [place], [place] [phone] Felisha Rucker APRN-INSPECTOR PENETRANT [address] [place] [phone] Ronna Alexander, ARTIFICIAL STONE APPLICATOR-INSPECTOR PENETRANT [address] [place] [phone] Health Maintenance Due Date Last Done Comments MEDICARE AWV 12 MONTHS 1940 DTAP/TDAP/TD VACCINES (1 - Tdap) 1959 PNEUMOCOCCAL VACCINE 50+ (1 of 1 - PCV) 1990 ZOSTER VACCINE (1 of 2) 1990 COVID-19 VACCINE (3 - season) 2024 10/27/2020, 10/06/2020 INFLUENZA VACCINE (#1) 2024 2, 05/19/2020, 07/01/2019, Additional history exists Respiratory Syncytial Virus (RSV) Vaccine Pt: or over 60 yrs Completed 06/03/2024 DEPRESSION SCREENING Completed 09/30/2024, 10/10/2023, 10/04/2022, Additional history exists HEPATITIS B VACCINE Aged Out No longe r eligible based on patient's age to complete this topic HIB VACCINE Aged Out No longer eligi ble based on patient's age to complete this topic HPV VACCINE Aged Out No longer eligi ble based on patient's age to complete this topic MENINGOCOCCAL (Group B) VACCINE Aged Out No longer eligible based on patient's age to complete this topic MENINGOCOCCAL VACCINE Aged Out No zoey dalia eligible based on patient's age to complete this topic Medical Devices Implanted Type Area Social Media Executive Device Identifier Shelf Expiration Date Model / Serial / Lot 2-0.75 Diameter X 5mm Visicoil By 15mm Long Pgla Spacer With Sleeve In Pre-Waxed 18gauge Needle-Needle Length:20cm Implanted:Qty: 2 on 02/12/2017 by Kunal Sorensen MD at [facility] 06/07/2019 [id number] / / [id number] Description:Social Media Executive Gladis Crowdx; 2 Needle packages opened containing 2 markers apiece. Procedures Procedure Name Priority Date/Time Associated Diagnosis Comments CBC W AUTO DIFFERENTIAL (CANCER CARE) Routine 10/28/2024 11:45 AM SALES OPERATIONS MANAGER Malignant neoplasm of prostate (HCC) Cancer, metastatic to bone (HCC) High risk medications (not anticoagulants) long-term use B12 deficiency PSA SERIAL Routine 10/28/2024 11:45 AM SALES OPERATIONS MANAGER Malignant neoplasm of prostate (HCC) Cancer, metastatic to bone (HCC) VITAMIN B12 Routine 10/28/2024 11:45 AM SALES OPERATIONS MANAGER B12 deficiency COMPREHENSIVE METABOLIC PANEL Routine 10/28/2024 11:45 AM SALES OPERATIONS MANAGER Malignant neoplasm of prostate (HCC) Cancer, metastatic to bone (HCC) High risk medications (not anticoagulants) long-term use CBC W AUTO DIFFERENTIAL (CANCER CARE) Routine 09/30/2024 12:43 PM SALES OPERATIONS MANAGER Malignant neoplasm of prostate (HCC) High risk medications (not anticoagulants) long-term use Cancer, metastatic to bone (HCC) B12 deficiency COMPREHENSIVE METABOLIC PANEL Routine 09/30/2024 12:43 PM SALES OPERATIONS MANAGER Malignant neoplasm of prostate (HCC) High risk medications (not anticoagulants) long-term use Cancer, metastatic to bone (HCC) VITAMIN B12 Routine 09/30/2024 12:43 PM SALES OPERATIONS MANAGER B12 deficiency PSA SERIAL Routine 09/30/2024 12:43 PM SALES OPERATIONS MANAGER Malignant neoplasm of prostate (HCC) Cancer, metastatic to bone (HCC) PET CT F18 PSMA SKULL MID THIGH Routine 09/24/2024 12:57 PM SALES OPERATIONS MANAGER Malignant neoplasm of prostate (HCC) High risk medications (not anticoagulants) long-term use CBC W AUTO DIFFERENTIAL (CANCER CARE) Routine 08/11/2024 1:36 PM SALES OPERATIONS MANAGER Malignant neoplasm of prostate (HCC) High risk medications (not anticoagulants) long-term use COMPREHENSIVE METABOLIC PANEL Routine 08/11/2024 1:36 PM SALES OPERATIONS MANAGER Malignant neoplasm of prostate (HCC) High risk medications (not anticoagulants) long-term use PSA SERIAL Routine 08/11/2024 1:36 PM SALES OPERATIONS MANAGER Malignant neoplasm of prostate (HCC) High risk medications (not anticoagulants) long-term use from Last 3 Months Results * (ABNORMAL) CBC W AUTO DIFFERENTIAL (CANCER CARE) (10/28/2024 11:45 AM SALES OPERATIONS MANAGER) Only the most recent of3 resultswithin the time period is included. WBC 4.9 4.4 - 10.7 x10E9/L 10/28/2024 11:54 AM SALES OPERATIONS MANAGER [facility] Neutrophils % 67.7 44.0 - 73.0 % 10/28/2024 11:54 AM SALES OPERATIONS MANAGER [facility] Lymphocytes % 18.4(L) 20.0 - 43.0 % 10/28/2024 11:54 AM SALES OPERATIONS MANAGER [facility] Monocytes % 8.2 5.0 - 13.0 % 10/28/2024 11:54 AM SALES OPERATIONS MANAGER [facility] Eosinophils % 4.9 0.0 - 6.0 % 10/28/2024 11:54 AM SALES OPERATIONS MANAGER [facility] Basophils % 0.4 0.0 - 2.0 % 10/28/2024 11:54 AM SALES OPERATIONS MANAGER [facility] Immature Granulocytes 0.4 <=1 % 10/28/2024 11:54 AM SALES OPERATIONS MANAGER [facility] Neutrophil Absolute 3.28 2.01 - 7.14 x10E9/L 10/28/2024 11:54 AM SALES OPERATIONS MANAGER [facility] Lymphocytes Absolute 0.89(L) 1.07 - 3.94 x10E9/L 10/28/2024 11:54 AM SALES OPERATIONS MANAGER [facility] Monocytes Absolute 0.40 0.26 - 1.07 x10E9/L 10/28/2024 11:54 AM SALES OPERATIONS MANAGER [facility] Eosinophils Absolute 0.24 0 - 0.47 x10E9/L 10/28/2024 11:54 AM SALES OPERATIONS MANAGER [facility] Basophils Absolute 0.02 0 - 0.08 x10E9/L 10/28/2024 11:54 AM SALES OPERATIONS MANAGER [facility] RBC 4.13 3.80 - 5.40 x10E12/L 10/28/2024 11:54 AM SALES OPERATIONS MANAGER [facility] Hemoglobin 12.3 12.0 - 17.6 gm/dL 10/28/2024 11:54 AM SALES OPERATIONS MANAGER [facility] Hematocrit 37.8 35.2 - 51.7 % 10/28/2024 11:54 AM SALES OPERATIONS MANAGER [facility] MCV 91.5 80.7 - 98.3 fl 10/28/2024 11:54 AM SALES OPERATIONS MANAGER [facility] MCH 29.8 26.7 - 34.0 pg 10/28/2024 11:54 AM SALES OPERATIONS MANAGER [facility] MCHC 32.5 30.8 - 35.9 gm/dL 10/28/2024 11:54 AM SALES OPERATIONS MANAGER [facility] RDW-CV 13.6 12.1 - 14.9 % 10/28/2024 11:54 AM SALES OPERATIONS MANAGER [facility] Platelet Count 163 153 - 416 x10E9/L 10/28/2024 11:54 AM [facility] MPV 9.5 9.4 - 12.9 fl 10/28/2024 11:54 AM SALES OPERATIONS MANAGER [facility] [place] NRBC 0.0 <=0 /100 WBC 10/28/2024 11:54 AM SALES OPERATIONS MANAGER [facility] [place] Blood BLOOD SPECIMEN / Unknown 10/28/2024 11:45 AM SALES OPERATIONS MANAGER 10/28/2024 11:45 AM SALES OPERATIONS MANAGER Daysi Osorio MD LAB - HEMATOL OGY ORDERABLES [facility] [place] [address] [facility], [address] [place] [address] * (ABNORMAL) PSA SERIAL (10/28/2024 11:45 AM SALES OPERATIONS MANAGER) Only the most recent of3 resultswithin the time period is included. PSA 6.9(H) 0.0 - 4.0 ng/mL [facility] INSURANCE BILL Comment: Yariel ECLIA methodology. According to the [place] [employer], Serum PSA should decrease and remain at undetectable levels after radical prostatectomy. The AUA defines biochemical recurrence as an initial PSA value 0.2 ng/mL or greater followed by a subsequent confirmatory PSA value 0.2 ng/mL or greater. Values obtained with different assay methods or kits cannot be used interchangeably. Results cannot be interpreted as absolute evidence of the presence or absence of malignant disease. Blood BLOOD SPECIMEN / Unknown 10/28/2024 11:45 AM SALES OPERATIONS MANAGER 10/28/2024 Comment:Blood Release to pat i [employer] INSURANCE BILL - 10/29/2024 6:09 PM SALES OPERATIONS MANAGER Performed at: [address] [place] [id number] Architectural Technician: Arun Rice PhD, Phone: [phone] Daysi Osorio MD LAB - ELASTIC ATTACHER OVERLOCK RY ORDERABLES [facility] INSURANCE BILL [address] [place] [address] * (ABNORMAL) COMPREHENSIVE METABOLIC PANEL (10/28/2024 11:45 AM SALES OPERATIONS MANAGER) Only the most recent of3 resultswithin the time period is included. Glucose 143(H) 70 - 99 mg/dL [facility] INSURANCE BILL BUN 23 7 - 26 mg/dL [facility] INSURANCE BILL Creatinine 1.15 0.72 - 1.25 mg/dL [facility] INSURANCE BILL eGFR by CKD-EPI 63(L) >=90 mL/min/1.7 3 m2 [facility] INSURANCE BILL Sodium 140 136 - 145 mmol/L [facility] INSURANCE BILL Potassium 4.3 3.5 - 5.1 mmol/L [facility] INSURANCE BILL Chloride 108(H) 98 - 107 mmol/L [facility] INSURANCE BILL CO2 24 22 - 29 mmol/L [facility] INSURANCE BILL Calcium 9.9 8.4 - 10.4 mg/dL [facility] INSURANCE BILL Protein Total 7.3 6.4 - 8.3 gm/dL [facility] INSURANCE BILL Albumin 4.0 3.4 - 5.0 gm/dL [facility] INSURANCE BILL Bilirubin Total 0.6 0.2 - 1.2 mg/dL [facility] INSURANCE BILL Alkaline Phosphatase 67 40 - 150 U/L [facility] INSURANCE BILL AST 30 5 - 34 U/L [facility] INSURANCE BILL ALT 35 0 - 55 U/L [facility] INSURANCE BILL Blood BLOOD SPECIMEN / Unknown 10/28/2024 11:45 AM SALES OPERATIONS MANAGER 10/28/2024 Comment:Blood Release to pat i Narrative [facility] INSURANCE BILL - 10/28/2024 7:08 PM SALES OPERATIONS MANAGER Performed at: [address] [id number] Architectural Technician: Dolores Henley MD, Phone: [phone] Daysi Osorio MD LAB - ELASTIC ATTACHER OVERLOCK RY ORDERABLES [facility] INSURANCE BILL [address] [address] * VITAMIN B12 (10/28/2024 11:45 AM SALES OPERATIONS MANAGER) Only the most recent of2 resultswithin the time period is included. Vitamin B12 727 213 - 816 pg/mL [facility] INSURANCE BILL Blood BLOOD SPECIMEN / Unknown 10/28/2024 11:45 AM SALES OPERATIONS MANAGER 10/28/2024 Comment:Blood Release to pat i Narrative [facility] INSURANCE BILL - 10/28/2024 7:08 PM SALES OPERATIONS MANAGER Performed at: [address] [id number] Architectural Technician: Dolores Henley MD, Phone: [phone] Daysi Osorio MD LAB - ELASTIC ATTACHER OVERLOCK RY ORDERABLES [facility] INSURANCE BILL [address] [place] [address] * PET CT F18 Psma Skull Mid Thigh (09/24/2024 12:57 PM SALES OPERATIONS MANAGER) Anatomical Region Laterality Modality Positron Emissio n Tomography (PET) 09/24/2024 1:37 PM SALES OPERATIONS MANAGER Impressions 09/24/2024 1:56 PM SALES OPERATIONS MANAGER IMPRESSION: 1.Heterogeneous radiotracer activity within the prostate now measures up to 2.75 SUV, decreased compared to the prior at which time activity measured up to 4.21 SUV. 2.Revisualization of multiple osseous lesions demonstrating marked radiotracer hyperactivity, many of which demonstrate significant increase in radiotracer activity is compared to the prior study, concerning for disease progression, though no definite evidence of additional prominent foci of radiotracer hyperactivity are identified. > Interpreting Provider: Leonela Duenas MD on 09/24/2024 1:56 PM Narrative 09/24/2024 1:56 PM SALES OPERATIONS MANAGER PROCEDURE(s): PET CT F18 PSMA SKULL MID THIGH DATE AND TIME OF EXAM(s): 09/24/2024 12:57 PM INDICATION(s): C61: Malignant neoplasm of prostate (HCC). Z79.899: Other senior living (current) drug therapy. Increasing PSA. COMPARISON(s): PET/CT dated 10/24/2023. ISOTOPE: 10.47 mCi F-18 PSMA FINDINGS: HEAD/NECK: Physiologic uptake is seen in the nasal, oral, pharyngeal and laryngeal regions and salivary glands. At the right lateral facial soft tissues, there is a small soft tissue density lesion measuring approximately 1.4 centers in diameter which is most suggestive of sebaceous cyst, but remains nonspecific finding. No definite evidence of abnormal radiotracer hyperactivity to suggest metastatic prostate cancer. CHEST: No definite evidence of abnormal radiotracer hyperactivity to suggest metastatic prostate cancer. ABDOMEN/PELVIS: Physiologic uptake is seen in the liver, spleen, GI, and tracts. Revisualization of multiple metallic foci within the prostate bed which could represent fiducial markers or brachytherapy seeds. Heterogeneous radiotracer activity within the prostate now measures up to 2.75 SUV, decreased compared to the prior at which time activity measured up to 4.21 SUV. At the ventral abdominal superficial soft tissues there is a fluid density lesion measuring 2.7 x 4.7 cm which is grossly unchanged compared to the prior study and demonstrates no evidence of radiotracer activity, a nonspecific finding. There is cholelithiasis. Calcification is seen throughout the pancreas compatible with chronic pancreatitis. MUSCULOSKELETAL: Revisualization of osseous lesions within the spine demonstrating marked radiotracer hyperactivity, similar to that seen on the prior study. Marked radiotracer hyperactivity is seen at the left portion of the T6 vertebral body measuring up to 159.49 SUV, 31.29 SUV previously. Marked radiotracer hyperactivity is seen at the right inferior endplate of the T7 vertebral body measuring up to 11.56 SUV, previously measuring up to 21.80 SUV. Marked radiotracer hyperactivity with associated sclerosis is seen at the posterior T9 vertebral body measuring up to 63.80 SUV, previously measuring up to an 11.26 SUV. A small focus of radiotracer hyperactivity is seen at the anterior C6 vertebral body measuring up to 4.80 SUV, 3.63 previously. Compression fracture deformity is seen at the L1 vertebral body. Within the left sacrum at approximately the L5 level, there is marked metabolic radiotracer hyperactivity measuring up to 25.11 SUV, 18.14 SUV previously. Within the left iliac wing, focus of marked radiotracer activity measuring up to 18.01 SUV is seen, previously measuring 18.56 SUV. Procedure Note Leonela Duenas MD - 09/24/2024 PROCEDURE(s): PET CT F18 PSMA SKULL MID THIGH DATE AND TIME OF EXAM(s): 09/24/2024 12:57 PM INDICATION(s): C61: Malignant neoplasm of prostate (HCC). Z79.899: Other senior living (current) drug therapy. Increasing PSA. COMPARISON(s): PET/CT dated 10/24/2023. ISOTOPE: 10.47 mCi F-18 PSMA FINDINGS: HEAD/NECK: Physiologic uptake is seen in the nasal, oral, pharyngeal and laryngeal regions and salivary glands. At the right lateral facial soft tissues, there is a small soft tissue density lesion measuring approximately 1.4 centers in diameter which is most suggestive ofsebaceous cyst, but remains nonspecific finding. No definite evidence of abnormal radiotracer hyperactivity to suggest metastatic prostate cancer. CHEST: No definite evidence of abnormal radiotracer hyperactivity to suggest metastatic prostate cancer. ABDOMEN/PELVIS: Physiologic uptake is seen in the liver, spleen, GI, andGU tracts. Revisualization of multiple metallic foci within the prostatebed which could represent fiducial markers or brachytherapy seeds. Heterogeneous radiotracer activity within the prostate now measures upto 2.75 SUV, decreased compared to the prior at which time activitymeasured up to 4.21 SUV. At the ventral abdominal superficial soft tissues thereis a fluid density lesion measuring 2.7 x 4.7 cm which is grossly unchanged compared to the prior study and demonstrates no evidence of radiotracer activity, a nonspecific finding. There is cholelithiasis. Calcificationis seen throughout the pancreas compatible with chronic pancreatitis. MUSCULOSKELETAL: Revisualization of osseous lesions within the spine demonstrating marked radiotracer hyperactivity, similar to that seen onthe prior study. Marked radiotracer hyperactivity is seen at the leftportion of the T6 vertebral body measuring up to 159.49 SUV, 31.29 SUVpreviously. Marked radiotracer hyperactivity is seen at the right inferior endplateof the T7 vertebral body measuring up to 11.56 SUV, previously measuring upto 21.80 SUV. Marked radiotracer hyperactivity with associated sclerosis is seen at the posterior T9 vertebral body measuring up to 63.80 SUV, previously measuring up to an 11.26 SUV. A small focus of radiotracer hyperactivity is seen at the anterior C6 vertebral body measuring up to 4.80 SUV, 3.63 previously. Compression fracture deformity is seen at theL1 vertebral body. Within the left sacrum at approximately the L5 level,there is marked metabolic radiotracer hyperactivity measuring up to 25.11 SUV, 18.14 SUV previously. Within the left iliac wing, focus of marked radiotracer activity measuring up to 18.01 SUV is seen, previously measuring 18.56 SUV. IMPRESSION: 1.Heterogeneous radiotracer activity within the prostate now measures upto 2.75 SUV, decreased compared to the prior at which time activitymeasured up to 4.21 SUV. 2.Revisualization of multiple osseous lesions demonstrating marked radiotracer hyperactivity, many of which demonstrate significantincrease in radiotracer activity is compared to the prior study, concerning for disease progression, though no definite evidence of additional prominent foci of radiotracer hyperactivity are identified. > Interpreting Provider: Leonela Duenas MD on 09/24/2024 1:56 PM Ronna Alexander ARTIFICIAL STONE APPLICATOR-INSPECTOR PENETRANT NM ORDERABLE S from Last 3 Months Care Teams Hotel Services Sales Representative Relationship Specialty Start Date End Date Kunal Jensen DO PCP - General Internal Medicine 09/25/20 [place] [id number] [address] Physical Medicine and Rehabilitation 02/05/23
--- OUTSIDE RECORDS SUMMARY | 2024-11-02 13:18 | XMS_ITS | Referral Summary ---
Author Organization [facility] Address [address] [facility] [place] [address] Care Team Providers Care Pattern Fitter Name Role Phone Kunal Jensen DO Primary Care Provider [phone] Norm Bridges MD Unavailable [phone] Source Comments [facility],non-owned Affiliates and Associated Physician Practices is amultiple site organization consisting of ambulatory clinics and hospital sitesin [place], [place], [place] and [place]. This disclosure is being madepursuant to the Care Everywhere program and may not contain all information available regarding this patient. Last updated 18.[facility] Encounters Date Type Department Care Team Description 10/28/2024 11:42 AM DESIGN ENGINEER MARINE EQUIPMENT - 10/28/2024 11:59 PM DESIGN ENGINEER MARINE EQUIPMENT Hospital Encounter [facility] F [address] [place] [address] Daysi Osorio MD Hendrix, Jennifer, FAMILY PRACTICE MEDICAL DOCTOR-HARP MAKER Ronna Alexander APRN-DANIE Discharge Disposition: Home or Self Care 10/28/2024 12:00 PM DESIGN ENGINEER MARINE EQUIPMENT Office Visit [facility] [address] [place] [id number] Daysi Osorio MD Malignant neoplasm of prostate (HCC) (Primary Dx); Cancer, metastatic to bone (HCC); High risk medications (not anticoagulants) long-term use; B12 deficiency 10/02/20[address] [facility] [place] [address] Daysi Osorio MD Refill Request 09/30/2024 Travel 09/30/2024 12:41 PM DESIGN ENGINEER MARINE EQUIPMENT - 09/30/2024 11:59 PM DESIGN ENGINEER MARINE EQUIPMENT Hospital Encounter [facility] [address] [facility] [place] [address] Daysi Osorio MD Hendrix, Jennifer, FAMILY PRACTICE MEDICAL DOCTOR-Ronna Pride APRN-DANIE Discharge Disposition: Home or Self Care 09/30/2024 1:00 PM DESIGN ENGINEER MARINE EQUIPMENT [address] [facility] [place] [address] Daysi Osorio MD Malignant neoplasm of prostate (HCC) (Primary Dx); High risk medications (not anticoagulants) long-term use; Cancer, metastatic to bone (HCC); B12 deficiency 09/24/2024 11:06 AM DESIGN ENGINEER MARINE EQUIPMENT - 09/24/2024 11:59 PM DESIGN ENGINEER MARINE EQUIPMENT Hospital Encounter [place] [address] [facility] [place] [address] Ronna Alexander APRN-HARP MAKER Discharge Disposition: Home or Self Care 08/11/2024 Travel 08/11/2024 1:34 PM DESIGN ENGINEER MARINE EQUIPMENT - 08/11/2024 11:59 PM DESIGN ENGINEER MARINE EQUIPMENT Hospital Encounter [facility] [address] [place] [address] Daysi Osorio MD Hendrix, Jennifer, FAMILY PRACTICE MEDICAL DOCTOR-HARP MAKER Ronna Alexander APRN-HARP MAKER Discharge Disposition: Home or Self Care 08/11/2024 1:50 PM DESIGN ENGINEER MARINE EQUIPMENT [address] [facility] [address] [place] [address] Ronna Alexander APRN-HARP MAKER Malignant neoplasm of prostate (HCC) (Primary Dx); High risk medications (not anticoagulants) long-term use from Last 3 Months Allergies No known active allergies Medications * [...] use 08/11/2024 Thrombocytopenia 12/26/2020 Overview (12/26/2020): 03/27/2020 OVDr. 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 Osorio Malignant neoplasm of prostate 01/14/2017 Cancer Staging:Clinical stage from 11/19/2016:Stage IIA(T1c, N0, M0, PSA: Less than 10, João 7) - Signed by Kunal Sorensen MD on 02/11/2017 Pathologic stage from 09/22/2017:Stage IV(TX, NX, M1b, PSA: 20 or greater) - Signed by Daysi Osorio MD on 09/22/2017 Overview (12/26/2020): 12/25/2020 Dr. Jo CARRERA Immunizations Name Administration Dates Next Due INFLUENZA VACCINE, ADJUVANTE D, QUADR. (FLUAD QUADRIVALENT; 65Y+) (AIIV4) 06/14/2022 RSV AREXVY 60YR+ 0.5ML 06/03/2024 Social History Tobacco Use Types Packs/Day Years [...] Comments Blood Pressure 138/78 10/28/2024 12:33 PM DESIGN ENGINEER MARINE EQUIPMENT Pulse 105 10/28/2024 12:33 PM DESIGN ENGINEER MARINE EQUIPMENT Temperature 36.1 C (97 F) 10/28/2024 12:33 PM DESIGN ENGINEER MARINE EQUIPMENT Respiratory Rate 18 10/28/2024 12:33 PM DESIGN ENGINEER MARINE EQUIPMENT Oxygen Saturation 95% 10/28/2024 12:33 PM DESIGN ENGINEER MARINE EQUIPMENT Inhaled Oxygen Concentration - - Weight 110.2 kg (243 lb) 10/28/2024 12:07 PM DESIGN ENGINEER MARINE EQUIPMENT Height 185.4 cm (6' 1 ) 10/28/2024 12:07 PM DESIGN ENGINEER MARINE EQUIPMENT Body Mass Index 32.06 10/28/2024 12:07 PM DESIGN ENGINEER MARINE EQUIPMENT Functional Status Functional Status Response Date of [...] person have difficulty concentrating/remembering/making decisions? No 02/12/2017 Plan of Treatment Upcoming Encounters Date Type Department Care Team (Late st Contact Info) Description 11/25/2024 11:30 AM CDT Documentation [facility] [address] [place] [phone] 11/25/2024 11:50 AM CDT Office Visit [facility] Emergency Department [address] [place] [phone] Ronna Alexander APRN-HARP MAKER [address] [place] [phone] 11/25/2024 11:50 AM CDT Appointment [facility] Infusion Center [address] [place] [address] Daysi Osorio MD [address] [place] [address] Felisha Rucker APRN-HARP MAKER [address] [place] [phone] Ronna Alexander APRN-HARP MAKER [address] [place] [address] Medical Devices Implanted Type Area Cutlery Grinder Device Identifier Shelf Expiration Date Model / Serial / Lot 2-0.75 Diameter X 5mm Visicoil By 15mm Long Pgla Spacer With Sleeve In Pre-Waxed 18gauge Needle-Needle Length:20cm Implanted:Qty: 2 on 02/12/2017 by [facility]/07/2019 [id number] / / [id number] Description:Cutlery Grinder Gladis BeMo; 2 Needle packages opened containing 2 markers apiece. Procedures Procedure Name Priority Date/Time Associated Diagnosis Comments CBC W AUTO DIFFERENTIAL (CANCER CARE) Routine 10/28/2024 11:45 AM DESIGN ENGINEER MARINE EQUIPMENT Malignant neoplasm of prostate (HCC) Cancer, metastatic to bone (HCC) High risk medications (not anticoagulants) long-term use B12 deficiency PSA SERIAL Routine 10/28/2024 11:45 AM DESIGN ENGINEER MARINE EQUIPMENT Malignant neoplasm of prostate (HCC) Cancer, metastatic to bone (HCC) VITAMIN B12 Routine 10/28/2024 11:45 AM DESIGN ENGINEER MARINE EQUIPMENT B12 deficiency COMPREHENSIVE METABOLIC PANEL Routine 10/28/2024 11:45 AM DESIGN ENGINEER MARINE EQUIPMENT Malignant neoplasm of prostate (HCC) Cancer, metastatic to bone (HCC) High risk medications (not anticoagulants) long-term use CBC W AUTO DIFFERENTIAL (CANCER CARE) Routine 09/30/2024 12:43 PM DESIGN ENGINEER MARINE EQUIPMENT Malignant neoplasm of prostate (HCC) High risk medications (not anticoagulants) long-term use Cancer, metastatic to bone (HCC) B12 deficiency COMPREHENSIVE METABOLIC PANEL Routine 09/30/2024 12:43 PM DESIGN ENGINEER MARINE EQUIPMENT Malignant neoplasm of prostate (HCC) High risk medications (not anticoagulants) long-term use Cancer, metastatic to bone (HCC) VITAMIN B12 Routine 09/30/2024 12:43 PM DESIGN ENGINEER MARINE EQUIPMENT B12 deficiency PSA SERIAL Routine 09/30/2024 12:43 PM DESIGN ENGINEER MARINE EQUIPMENT Malignant neoplasm of prostate (HCC) Cancer, metastatic to bone (HCC) PET CT F18 PSMA SKULL MID THIGH Routine 09/24/2024 12:57 PM DESIGN ENGINEER MARINE EQUIPMENT Malignant neoplasm of prostate (HCC) High risk medications (not anticoagulants) long-term use CBC W AUTO DIFFERENTIAL (CANCER CARE) Routine 08/11/2024 1:36 PM DESIGN ENGINEER MARINE EQUIPMENT Malignant neoplasm of prostate (HCC) High risk medications (not anticoagulants) long-term use COMPREHENSIVE METABOLIC PANEL Routine 08/11/2024 1:36 PM DESIGN ENGINEER MARINE EQUIPMENT Malignant neoplasm of prostate (HCC) High risk medications (not anticoagulants) long-term use PSA SERIAL Routine 08/11/2024 1:36 PM DESIGN ENGINEER MARINE EQUIPMENT Malignant neoplasm of prostate (HCC) High risk medications (not anticoagulants) long-term use from Last 3 Months Results * (ABNORMAL) CBC W AUTO DIFFERENTIAL (CANCER CARE) (10/28/2024 11:45 AM DESIGN ENGINEER MARINE EQUIPMENT) Only the most recent of3 resultswithin the time period is included. WBC 4.9 4.4 - 10.7 x10E9/L 10/28/2024 11:54 AM DESIGN ENGINEER MARINE EQUIPMENT [facility] Neutrophils % 67.7 44.0 - 73.0 % 10/28/2024 11:54 AM DESIGN ENGINEER MARINE EQUIPMENT [facility] Lymphocytes % 18.4(L) 20.0 - 43.0 % 10/28/2024 11:54 AM DESIGN ENGINEER MARINE EQUIPMENT [facility] Monocytes % 8.2 5.0 - 13.0 % 10/28/2024 11:54 AM DESIGN ENGINEER MARINE EQUIPMENT [facility] Eosinophils % 4.9 0.0 - 6.0 % 10/28/2024 11:54 AM DESIGN ENGINEER MARINE EQUIPMENT [facility] Basophils % 0.4 0.0 - 2.0 % 10/28/2024 11:54 AM DESIGN ENGINEER MARINE EQUIPMENT [facility] Immature Granulocytes 0.4 <=1 % 10/28/2024 11:54 AM DESIGN ENGINEER MARINE EQUIPMENT [facility] Neutrophil Absolute 3.28 2.01 - 7.14 x10E9/L 10/28/2024 11:54 AM DESIGN ENGINEER MARINE EQUIPMENT [facility] Lymphocytes Absolute 0.89(L) 1.07 - 3.94 x10E9/L 10/28/2024 11:54 AM DESIGN ENGINEER MARINE EQUIPMENT [facility] Monocytes Absolute 0.40 0.26 - 1.07 x10E9/L 10/28/2024 11:54 AM [facility] Eosinophils Absolute 0.24 0 - 0.47 x10E9/L 10/28/2024 11:54 AM [facility] Basophils Absolute 0.02 0 - 0.08 x10E9/L 10/28/2024 11:54 AM [facility] RBC 4.13 3.80 - 5.40 x10E12/L 10/28/2024 11:54 AM [facility] Hemoglobin 12.3 12.0 - 17.6 gm/dL 10/28/2024 11:54 AM [facility] Hematocrit 37.8 35.2 - 51.7 % 10/28/2024 11:54 AM [facility] MCV 91.5 80.7 - 98.3 fl 10/28/2024 11:54 AM [facility] MCH 29.8 26.7 - 34.0 pg 10/28/2024 11:54 AM [facility] MCHC 32.5 30.8 - 35.9 gm/dL 10/28/2024 11:54 AM [facility] RDW-CV 13.6 12.1 - 14.9 % 10/28/2024 11:54 AM [facility] Platelet Count 163 153 - 416 x10E9/L 10/28/2024 11:54 AM [facility] MPV 9.5 9.4 - 12.9 fl 10/28/2024 11:54 AM [facility] NRBC 0.0 <=0 /100 WBC 10/28/2024 11:54 AM [facility] Blood BLOOD SPECIMEN / Unknown 10/28/2024 11:45 AM DESIGN ENGINEER MARINE EQUIPMENT 10/28/2024 11:45 AM DESIGN ENGINEER MARINE EQUIPMENT Daysi Osorio MD LAB - HEMATOL OGY ORDERABLES [facility] [place] [address] [facility], [address] [place] [address] * (ABNORMAL) PSA SERIAL (10/28/2024 11:45 AM DESIGN ENGINEER MARINE EQUIPMENT) Only the most recent of3 resultswithin the time period is included. PSA 6.9(H) 0.0 - 4.0 ng/mL [facility] INSURANCE BILL Comment: Yariel ECLIA methodology. According to the [employer] [employer], Serum PSA should decrease and [...] BLOOD SPECIMEN / Unknown 10/28/2024 11:45 AM DESIGN ENGINEER MARINE EQUIPMENT 10/28/2024 Comment:Blood Release to [facility] INSURANCE BILL - 10/29/2024 6:09 PM DESIGN ENGINEER MARINE EQUIPMENT Performed at: - [facility] [address] [place] [id number] Group Leader: Arun Rice PhD, Phone: [phone] Daysi Osorio MD LAB - HOME BASED ASSISTANT RY ORDERABLES [facility] INSURANCE BILL [address] [place] [address] * (ABNORMAL) COMPREHENSIVE METABOLIC PANEL (10/28/2024 11:45 AM DESIGN ENGINEER MARINE EQUIPMENT) Only the most recent of3 resultswithin the [...] BLOOD SPECIMEN / Unknown 10/28/2024 11:45 AM DESIGN ENGINEER MARINE EQUIPMENT 10/28/2024 Comment:Blood Release to pa ti Narrative [facility] INSURANCE BILL - 10/28/2024 7:08 PM DESIGN ENGINEER MARINE EQUIPMENT Performed at: [address] [place] [id number] Group Leader: oDlores Henley MD, Phone: [phone] Daysi Osorio MD LAB - HOME BASED ASSISTANT RY ORDERABLES [facility] INSURANCE BILL [address] [place] [address] * VITAMIN B12 (10/28/2024 11:45 AM DESIGN ENGINEER MARINE EQUIPMENT) Only the most recent of2 resultswithin the time period is included. Vitamin B12 727 213 - 816 pg/mL [facility] INSURANCE BILL Blood BLOOD SPECIMEN / Unknown 10/28/2024 11:45 AM DESIGN ENGINEER MARINE EQUIPMENT 10/28/2024 Comment:Blood Release to pat i Narrative [facility] INSURANCE BILL - 10/28/2024 7:08 PM DESIGN ENGINEER MARINE EQUIPMENT Performed at: [address] [place] [id number] Group Leader: Dolores Henley MD, Phone: [phone] Daysi Osorio MD LAB - HOME BASED ASSISTANT RY ORDERABLES [facility] INSURANCE BILL [address] [address] * PET CT F18 Psma Skull Mid Thigh (09/24/2024 12:57 PM DESIGN ENGINEER MARINE EQUIPMENT) Anatomical Region Laterality Modality Positron Emissio n Tomography (PET) 09/24/2024 1:37 PM DESIGN ENGINEER MARINE EQUIPMENT Impressions 09/24/2024 1:56 PM DESIGN ENGINEER MARINE EQUIPMENT IMPRESSION: 1.Heterogeneous radiotracer activity within the prostate [...] 09/24/2024 1:56 PM Narrative 09/24/2024 1:56 PM DESIGN ENGINEER MARINE EQUIPMENT PROCEDURE(s): PET CT F18 PSMA SKULL MID THIGH DATE AND TIME OF EXAM(s): 09/24/2024 12:57 PM INDICATION(s): C61: Malignant neoplasm of prostate (HCC). Z79.899: Other retirement (current) drug therapy. Increasing PSA. COMPARISON(s): PET/CT [...] Malignant neoplasm of prostate (HCC). 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 Increasing PSA. COMPARISON(s): PET/CT [...] MD on 09/24/2024 1:56 PM Ronna Alexander FAMILY PRACTICE MEDICAL DOCTOR-HARP MAKER NM ORDERABLE S from Last 3 Months Care Teams Pattern Fitter Relationship Specialty Start Date End Date Kunal Jensen DO PCP - General Internal Medicine 09/25/20 [place] [address] [address] [address] Physical Medicine and Rehabilitation 02/05/23
--- OUTSIDE RECORDS SUMMARY | 2024-11-02 13:18 | XMS_ITS | Clinical Summary ---
Author Organization [facility] Address [address] [place] [address] Care Team Providers Care Senior Planner Name Role Phone Daysi Osorio MD Unavailable Aaron Munoz MD Unavailable [phone] Kunal Jensen DO Primary Care Provider [phone] Allergies No known active allergies Medications chlorthalidone 25 mg tablet 4 09/18/2018 Active glimepiride (AMARYL) 1 mg tablet 5 09/18/2018 Active mometasone (ELOCON) 0.1 % cream APPLY TO RASH PRN 2 09/18/2018 Active abiraterone (ZYTIGA) 250 mg tablet Take by mouth daily Take with a full glass of water. Swallow whole. Do not eat anything for at least 2 hours before and for at least 1 hour after you have taken the medicine. Active enalapril (VASOTEC) 20 mg tablet Take 1 tablet (20 mg total) by mouth daily Active pravastatin (PRAVACHOL) 20 mg tablet Take 1 tablet (20 mg total) by mouth daily Active cholecalciferol (VITAMIN D-3) 50,000 unit capsule Take 1 capsule (50,000 Units total) by mouth once a week Active predniSONE (DELTASONE) 5 mg tablet TK 1 T PO QD WF 5 07/18/2019 Active metFORMIN XR (GLUCOPHAGE XR) 500 mg 24 hr tablet 3 07/18/2019 Active BASAGLAR KWIKPEN U-100 INSULIN 100 unit/mL (3 mL) insulin pen INJ 15 UNITS SC QHS 3 07/18/2019 Active amLODIPine (NORVASC) 5 mg tablet Take 1 tablet (5 mg total) by mouth daily Active calcium carbonate (OS-SHERI) 1,500 mg (600 mg elemental) tablet Take 600 mg by mouth daily Active potassium chloride ER 8 mEq CR capsule Take 1 tablet/capsul e (8 mEq total) by mouth 2 (two) times a day Active insulin glargine 100 unit/mL vial for injection Inject under the skin nightly Active Active Problems Problem Noted Date Diagnosed Date Malignant neoplasm of prostate 01/19/2024 Cancer Staging:Clinical stage from 01/19/2024:Stage IVB(cM1b, Grade Group: 2) - Signed by Aaron Munoz MD on 01/19/2024 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 (10/02/2018): Added automatically from request for surgery [id number] Encounters Date Type Department Care Team Description 09/23/2024 3:30 PM CDL DRIVER Office Visit [facility] Building 2 Radiation Oncology [address] [place] [address] Aaron Munoz MD Malignant neoplasm of prostate (HCC) (Primary Dx) 09/14/2024 Telephone [facility] Building 2 Radiation Oncology [address] [place] [address] Stacie Marte RN 08/13/2024 1:00 PM CDL DRIVER - 08/13/2024 11:59 PM CDL DRIVER Hospital Encounter [facility] [address] [place] [address] Malignant neoplasm of prostate (HCC) Discharge Disposition: Discharge to home or self care 08/13/2024 1:00 PM CDL DRIVER Treatment [facility] 2 Radiation Oncology [address] [place] [address] Aaron Munoz MD 08/02/2024 Orders Only [facility] Building 2 Radiation Oncology [address] [place] [address] Aaron Munoz MD Malignant neoplasm of prostate (HCC) (Primary Dx) from Last 3 Months Surgical History Surgery Date Site/Laterality Comments ESOPHAGOSCOPY / EGD 09/08/2016 - 09/07/2017 EUS CATARACT EXTRACTION EXTRACAPSULAR W/ INTRAOCULAR LENS IMPLANTATION 09/08/2010 - 09/07/2011 Bilateral UPPER GASTROINTESTINAL ENDOSCOPY 12/07/2018 - 01/05/2019 post-bulbar duodenal nodule s/p EMR-neg. 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 History of colon polyps HTN (hypertension) Prostate cancer (HCC) 2017 s/p radiat ion Pre-diabetes Type 2 diabetes mellitus (HCC) Family History Medical History Relation Name Comments Breast cancer Mother Breast cancer Sister Relation Name Status Comments Mother Sister Alive Social History Tobacco Use Types Packs/Day Years Used Date Smoking Tobacco: Never Smokeless Tobacco: Never Tobacco Cessation:Counseling Given: Not Answered Alcohol Use Standard Drinks/Week Comments Yes 0 (1 standard drink = 0.6 oz pur e alcohol) 1/month AUDIT-C Answer Date Recorded Q1: How often do you have a drink containing alc ohol? 2-4 times a month 01/19/2024 Average Number of Drinks Not on file 024 Frequency of Binge Drinking Not on file 01/06 Sex and Gender Information Value Date Recorded Sex Assigned at Not on file Legal Sex Male 3:32 AM CDL DRIVER Gender Identity Not on file Sexual Orientation Not on file Obstetrics History Last Filed Vital Signs Vital Sign Reading Time Taken Comments Blood Pressure 145/81 09/23/2024 3:18 PM CDL DRIVER Pulse 81 09/23/2024 3:18 PM CDL DRIVER Temperature 36.7 C (98.1 F) 09/21/2019 10:55 AM CDL DRIVER Respiratory Rate 18 09/21/2019 11:15 AM CDL DRIVER Oxygen Saturation 100% 09/23/2024 3:18 PM CDL DRIVER Inhaled Oxygen Concentration - - Weight 111.6 kg (246 lb) 09/23/2024 3:18 PM CDL DRIVER Height 185.4 cm (6' 1 ) 09/21/2019 10:02 AM CDL DRIVER Body Mass Index 32.46 09/21/2019 10:02 AM CDL DRIVER Plan of Treatment Health Maintenance Due Date Last Done Comments Depression Screening 1940 Fall Risk Assessment 1940 Hepatitis B Screening 1958 Zoster Vaccine (1 of 2) 1959 Well Visit 65+ 2005 Covid-19 Vaccine (2023-2 5 season) 2024 12/19/2021, 06/13/2021, 10/27/2020, Additional history exists Influenza Vaccine (#1) 2024 , 06/13/2021, 05/19/2020, Additional history exists DTaP/Tdap/Td Vaccine (2 - Td or Tdap) 11/11/2025 11/12/2015 Pneumococcal vaccine 65+ Completed 07/04/2017, 07/09 Procedures Procedure Name Priority Date/Time Associated Diagnosis Comments NM BONE TREATMENT THERAPY Schedule Routine, Read Routine (OP Routine) 08/13/2024 2:12 PM CDL DRIVER Malignant neoplasm of prostate (HCC) from Last 3 Months Results * NM Bone Treatment Therapy (08/13/2024 2:12 PM CDL DRIVER) Narrative LUIGI_STEVAN_MHB_MHE - 08/13/2024 2:13 PM CDL DRIVER Please refer to the physician's procedure / OR operative note. 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 ADVANCE DIRECTIVE 09/21/2019 10:23 AM * Full Code (Latest Code Status on File) Date Activated Date Inactivated Comments 09/21/2019 9:57 AM 09/21/2019 4:00 PM * Full Code Date Activated Date Inactivated Comments 12/11/2018 11:42 AM 12/11/2018 5:50 PM Care Teams Senior Planner Relationship Specialty Start Date End Date Kunal Jensen DO [address] [place] [address] PCP - General Internal Medicine 02/18/24 Daysi Osorio MD [address] [facility] [address] [place] [address] Referring Physician Hematology and Oncology 01/09/24 Aaron Munoz MD [address] [place] [address] Radiation Oncologist Radiation Oncology 01/09/24
--- OUTSIDE RECORDS SUMMARY | 2024-11-02 13:18 | XMS_ITS | Clinical Summary ---
Author Organization [facility] Address [address] [place] [address] Phone Care Team Providers Care Machine Brusher Name Role Phone Marychuy Posey MD Primary Care Provi faisal Allergies No known active allergies Medications simvastatin (ZOCOR) 10 mg tablet Take 10 mg by mouth Daily LATE. Active ENALAPRIL MALEATE ORAL Take 10 mg by mouth daily. Active insulin glargine (Basaglar KwikPen U-100 Insulin) 100 unit/mL pen syringe Inject 15 Units by subcutaneous injection daily at bedtime. Active abiraterone (ZYTIGA) 250 mg Tablet Take 250 mg by mouth every 6 hours. Active calcium as carbonate (CALTRATE) 1,500 mg (600 mg elemental) Tablet Take 600 mg by mouth daily. Active chlorthalidone (HYGROTON) 25 mg tablet Take 12.5 mg by mouth daily. Active metFORMIN (GLUCOPHAGE) 1,000 mg tablet Take 2,000 mg by mouth daily before supper. Active potassium chloride (KLOR-CON) 10 mEq Extended Release tablet Take 10 mEq by mouth daily. Active pravastatin (PRAVACHOL) 20 mg tablet Take 20 mg by mouth daily. Active predniSONE (DELTASONE) 5 mg tablet Take 5 mg by mouth daily with breakfast. Active OTHER Vitamin D 50,000 units Active Active Problems No known active problems Family History Medical History Relation Name Comments Colon Cancer Neg Hx Social History Tobacco Use Types Packs/Day Years Used Date Smoking Tobacco: Never Smokeless Tobacco: Never Alcohol Use Standard Drinks/Week Comments Yes 0 (1 standard drink = 0.6 oz pur e alcohol) occasionally Sex and Gender Information Value Date Recorded Sex Assigned at Not on file Legal Sex Male 4:23 AM DEPARTMENT EDITOR Gender Identity Not on file Sexual Orientation Not on file Occupation Industry Job Start Date Job End Date Not on file Not on file Not on file Not on file Last Filed Vital Signs Vital Sign Reading Time Taken Comments Blood Pressure 120/77 09/30/2019 12:37 PM DEPARTMENT EDITOR Pulse 79 09/30/2019 12:37 PM DEPARTMENT EDITOR Temperature 36.2 C (97.1 F) 09/30/2019 12:37 PM DEPARTMENT EDITOR Respiratory Rate 12 09/30/2019 12:37 PM DEPARTMENT EDITOR Oxygen Saturation 96% 09/30/2019 12:37 PM DEPARTMENT EDITOR Inhaled Oxygen Concentration - - Weight 109.3 kg (241 lb) 09/30/2019 10:56 AM DEPARTMENT EDITOR Height 185.4 cm (6' 1 ) 09/30/2019 10:56 AM DEPARTMENT EDITOR Body Mass Index 31.8 09/30/2019 10:56 AM DEPARTMENT EDITOR Plan of Treatment Health Maintenance Due Date Last Done Comments DTAP/TDAP/TD VACCINES (1 - Tdap) 1959 PNEUMOCOCCAL VACCINE 65+ YEA RS (1 of 1 - PCV) 1990 ZOSTER VACCINE (1 of 2) 1990 RSV VACCINE (60+ or ) (1 - 1-dose 75+ series) 2015 INFLUENZA VACCINE (#1) 2024 COLORECTAL SCREENING 09/30/2024 09/30/2019, 09/30/2019, 09/30/2019, Additional history exists Procedures Procedure Name Priority Date/Time Associated Diagnosis Comments COLONOSCOPY REPORT 09/30/2019 12 :32 PM DEPARTMENT EDITOR from Last 3 Months or Most Recently Relevant to Health Maintenance Results * COLONOSCOPY REPORT (09/30/2019 12:32 PM DEPARTMENT EDITOR) Narrative Procedure Note Kartik Palmer MD - 09/30/2019 12:31 PM CST [facility] Endoscopy Patient Name: Kartik Perez Procedure Date: 09/30/2019 Date of : 1940 Admit Type: Outpatient Age: 79 Attending MD: Kartik Palmer MD Procedure: Colonoscopy Indications: High risk colon cancer surveillance: Personal history of colonic polyps. 2 adenomas in 2006 and 2009. None 2013. Providers: Kartik Palmer MD Referring MD: Marychuy Posey MD Medicines: Monitored Anesthesia Care Procedure: Informed consent was obtained for the procedure, including moderate sedation after risks were discussed. Based on the pre-procedure assessment, including review of the patient's medical history, medications, allergies, and review of systems, the patient was deemed to be an appropriate candidate for sedation. A timeout was performed. Continuous ECG monitoring, pulse oximetry, blood pressure monitoring, and direct observation were performed. The Colonoscope was introduced through the anus and advanced to the terminal ileum. The quality of the bowel preparation was excellent. Estimated Blood Loss: Estimated blood loss: none. Findings: A 6 mm polyp was found in the ascending colon. The polyp was sessile. The polyp was removed with a cold snare. Resection and retrieval were complete. Multiple diverticula were found in the entire colon. Mild telangiectasias were present in the distal rectum consistent with radiation proctitis. External and internal hemorrhoids were found during retroflexion and during perianal exam. The hemorrhoids were moderate. The terminal ileum appeared normal. Complications: No immediate complications. Impression: - One 6 mm polyp in the ascending colon, removed with a cold snare. Resected and retrieved. - Diverticulosis. - Mild radiation proctitis. - External and internal hemorrhoids. - The examined portion of the ileum was normal. Recommendation: - Await pathology results. - Consider repeat colonoscopy in 5 years for surveillance depending on overall health. - See diverticulosis and hemorrhoid handouts. Kartik Palmer MD 09/30/2019 12:30:46 PM This report has been signed electronically. Number of Addenda: 0 Procedure Date: 09/30/2019 11:37:11 AM [id number] [address] Kartik Palmer MD GI PROCEDURE ORDERABLES Final Result from Last 3 Months or Most Recently Relevant to Health Maintenance Insurance MEDICARE PART A AND B BCBS SUPP Advance Directives For more information, please contact: [phone] * Full Code (Latest Code Status on File) Date Activated Date Inactivated Comments 09/30/2019 10:50 AM 09/30/2019 3:13 PM * Full Code Date Activated Date Inactivated Comments 07/11/2014 6:41 AM 07/11/2014 10:57 AM Care Teams Machine Brusher Relationship Specialty Start Date End Date Marychuy Posey MD [address] [place] [id number] PCP - General Family Practice 08/19/19
--- OUTSIDE RECORDS SUMMARY | 2024-11-02 13:18 | XMS_ITS ---
Author Organization [facility] Address [address] [place] [address] Care Team Providers Care Fundraiser Name Role Phone Kunal Jensen DO Primary Care Provider [phone] Norm Bridges MD Unavailable [phone] Active Problems Problem Noted Date Diagnosed Date High risk medications (not anticoagulants) long- term use 08/11/2024 Thrombocytopenia 12/26/2020 Overview (12/26/2020): 03/27/2020 Dr. 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 Jo CARRERA Malignant neoplasm of prostate 01/14/2017 Cancer Staging:Clinical stage from 11/19/2016:Stage IIA(T1c, N0, M0, PSA: Less than 10, João 7) - Signed by Kunal Sorensen MD on 02/11/2017 Pathologic stage from 09/22/2017:Stage IV(TX, NX, M1b, PSA: 20 or greater) - Signed by Daysi Osorio MD on 09/22/2017 Overview (12/26/2020): 12/25/2020 OV, Dr. Osorio Current Oncology Plans OP SUPPORT (LEUPROLIDE (LUPRON OR ELIGARD)) Q6 MONTHS* Plan Start Date:03/21/2022 Plan Provider:Daysi Osorio MD Linked Problems Malignant neoplasm of prosta te (HCC)Cancer, metastatic to bone (HCC) Treatment Medications Current Day (Day 1 , Cycle 7 - Planned for 04/28/2025) Next Day (Day 1, Cycle 8 - Planned for 10/27/2025) leuprolide (Lupron Depot 6 Month) leuprolide (Lupron Depot 6 Month) injection 45 mg leuprolide (Lupron Depot 6 Month) injection 45 mg Other Current Plans CYANOCOBALAMIN (VIT B-12) THERAPY PLAN* Plan Start Date:04/24/2020 Plan Provider:Daysi Osorio MD Linked Problems B12 deficiency Treatment Medications No medications scheduled. Past Plans ONCOLOGY ADJUNCTIVE CARE Plan Name Start Date Discontinue Date Treatment Medications Discontinue Reason Plan Provider Cycles OP SUPPORT ([facility] AGONIST) Q6 MONTHS 04/04/2021 11/29/2021 leuprolide (Lupron Depot 6 Month) Therapy Complete Daysi De Jesus MD 2 of 2 cycles started OP SUPPORT ([facility] AGONIST) Q3 MONTHS 10/06/2017 02/16/2021 leuprolide (Lupron Depot 3 Month) Therapy Complete Daysi De Jesus MD 14 of 14 cycles started THERAPY PLAN Plan Name Start Date Discontinue Date Treatment Medications Discontinue Reason Plan Provider DENOSUMAB (XGEVA) THERAPY PLAN 10/06/2017 09/06/2022 No medications scheduled. Therapy Complete Daysi Osorio MD Radiation Treatments * No radiation treatments are documented for this patient in [facility]. Treatments may have been administered in another system. Lifetime Dose Tracking * Chemical Lifetime Dose Automatic Entry Manual Entr y Dose Length Product 15.29 mGy-cm 15.29 mGy-cm 0 mGy-cm
--- OUTSIDE RECORDS SUMMARY | 2024-11-02 13:18 | XMS_ITS | Patient Health Summary ---
Author Organization [facility] Address [address] [place] [address] Care Team Providers Care Director Of Education Name Role Phone Kunal Jensen DO Primary Care Provider [phone] Norm Bridges MD Unavailable [phone] Note from [facility],non-owned Affiliates and Associated Physician Practices is amultiple site organization consisting of ambulatory clinics and hospital sitesin [place], [place], [place] and [place]. This disclosure is being madepursuant to the Care Everywhere program and may not contain all information available regarding this patient. Last updated 18.[facility] Allergies No known active allergies Medications * Be aware that medications may not be up to date on this document. Alwaysverify current medications with the patient. * enalapril (VASOTEC) 20 MG tablet(Started 12/09/2016) Take 1 (one) tablet by mouth once daily 4 refills left * mometasone (ELOCON) 0.1 % cream(Started 03/03/2017) Apply 1 Dose to affected area once daily as needed 6 refills left * Calcium Carbonate (CALCIUM 600 PO) Take 600 mg by mouth once daily * pravastatin (PRAVACHOL) 20 MG tablet(Started 10/16/2017) Take 1 (one) tablet by mouth once daily 4 refills left * MICRO-K 10 MEQ capsule(Started 01/28/2019) Take 1 capsule by mouth daily with breakfast 5 refills remaining * metFORMIN CR 24hr modified (GLUMETZA) 1000 MG (MOD) tablet Take 4 (four) tablets by mouth daily with dinner * EASY TOUCH PEN NEEDLES 31G X 5 MM needle(Started 02/01/2021) 1 (one) Each by Injection route as directed * insulin glargine (Lantus/Semglee) 100 units/ml injection Inject 6 (six) Units to 10 (ten) Units subcutaneously at bedtime * acetaminophen (Tylenol) 500 MG tablet Take 1 (one) tablet to 2 (two) tablets by mouth every 4 hours as needed for Fever or Pain Maximum allowable Acetaminophen amount = 4 Grams (4000 mg) / 24 hours. 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 (FLUAD QUADRIVALENT; 65Y+) (AIIV4)(Given 06/14/2022) * RSV AREXVY 60YR+ 0.5ML(Given 06/03/2024) Social History Tobacco Use Types Packs/Day Years [...] Comments Blood Pressure 138/78 10/28/2024 12:33 PM DIRECTOR PLANS Pulse 105 10/28/2024 12:33 PM DIRECTOR PLANS Temperature 36.1 C (97 F) 10/28/2024 12:33 PM DIRECTOR PLANS Respiratory Rate 18 10/28/2024 12:33 PM DIRECTOR PLANS Oxygen Saturation 95% 10/28/2024 12:33 PM DIRECTOR PLANS Inhaled Oxygen Concentration - - Weight 110.2 kg (243 lb) 10/28/2024 12:07 PM DIRECTOR PLANS Height 185.4 cm (6' 1 ) 10/28/2024 12:07 PM DIRECTOR PLANS Body Mass Index 32.06 10/28/2024 12:07 PM DIRECTOR PLANS Medical Devices Implanted Type Area Single Corner Cutter Device Identifier Shelf Expiration Date Model / Serial / Lot 2-0.75 Diameter X 5mm Visicoil By 15mm Long Pgla Spacer With Sleeve In Pre-Waxed 18gauge Needle-Needle Length:20cm Implanted:Qty: 2 on 02/12/2017 by Kunal Sorensen MD at [facility] 06/07/2019 [id number] / / [id number] Description:Single Corner Cutter [employer]; 2 Needle packages opened containing 2 markers apiece. Procedures * CBC W AUTO DIFFERENTIAL (CANCER CARE)(Performed 10/28/2024) Performed for Malignant neoplasm of prostate (HCC), Cancer, metastatic to bone (HCC), High risk medications (not anticoagulants) long-term use, B12 deficiency * PSA SERIAL(Performed 10/28/2024) Performed for Malignant neoplasm of prostate (HCC), Cancer, metastatic to bone (HCC) * VITAMIN B12(Performed 10/28/2024) Performed for B12 deficiency * COMPREHENSIVE METABOLIC PANEL(Performed 10/28/2024) Performed for Malignant neoplasm of prostate (HCC), Cancer, metastatic to bone (HCC), High risk medications (not anticoagulants) long-term use * CBC W AUTO DIFFERENTIAL (CANCER CARE)(Performed 09/30/2024) Performed for Malignant neoplasm of prostate (HCC), High risk medications (not anticoagulants) long-term use, Cancer, metastatic to bone (HCC), B12 deficiency * COMPREHENSIVE METABOLIC PANEL(Performed 09/30/2024) Performed for Malignant neoplasm of prostate (HCC), High risk medications (not anticoagulants) long-term use, Cancer, metastatic to bone (HCC) * VITAMIN B12(Performed 09/30/2024) Performed for B12 deficiency * PSA SERIAL(Performed 09/30/2024) Performed for Malignant neoplasm of prostate (HCC), Cancer, metastatic to bone (HCC) * PET CT F18 PSMA SKULL MID THIGH(Performed 09/24/2024) Performed for Malignant neoplasm of prostate (HCC), High risk medications (not anticoagulants) long-term use * CBC W AUTO DIFFERENTIAL (CANCER CARE)(Performed 08/11/2024) Performed for Malignant neoplasm of prostate (HCC), High risk medications (not anticoagulants) long-term use * COMPREHENSIVE METABOLIC PANEL(Performed 08/11/2024) Performed for Malignant neoplasm of prostate (HCC), High risk medications (not anticoagulants) long-term use * PSA SERIAL(Performed 08/11/2024) Performed for Malignant neoplasm of prostate (HCC), High risk medications (not anticoagulants) long-term use * CBC W AUTO DIFFERENTIAL (CANCER CARE)(Performed 07/07/2024) Performed for Malignant neoplasm of prostate (HCC), High risk medications (not anticoagulants) long-term use, Cancer, metastatic to bone (HCC) * PSA SERIAL(Performed 07/07/2024) Performed for Malignant neoplasm of prostate (HCC), High risk medications (not anticoagulants) long-term use, Cancer, metastatic to bone (HCC) * COMPREHENSIVE METABOLIC PANEL(Performed 07/07/2024) Performed for Malignant neoplasm of prostate (HCC), High risk medications (not anticoagulants) long-term use, Cancer, metastatic to bone (HCC) * COMPREHENSIVE METABOLIC PANEL(Performed 06/03/2024) Performed for Malignant neoplasm of prostate (HCC), Cancer, metastatic to bone (HCC), B12 deficiency * CBC W AUTO DIFFERENTIAL (CANCER CARE)(Performed 06/03/2024) Performed for Malignant neoplasm of prostate (HCC), Cancer, metastatic to bone (HCC), B12 deficiency * VITAMIN B12(Performed 06/03/2024) Performed for Malignant neoplasm of prostate (HCC), Cancer, metastatic to bone (HCC), B12 deficiency * PSA SERIAL(Performed 06/03/2024) Performed for Malignant neoplasm of prostate (HCC), Cancer, metastatic to bone (HCC), B12 deficiency * COMPREHENSIVE METABOLIC PANEL(Performed 04/29/2024) Performed for Malignant neoplasm of prostate (HCC), Cancer, metastatic to bone (HCC), B12 deficiency * PSA SERIAL(Performed 04/29/2024) Performed for Malignant neoplasm of prostate (HCC), Cancer, metastatic to bone (HCC), B12 deficiency * CBC W AUTO DIFFERENTIAL (CANCER CARE)(Performed 04/29/2024) Performed for Malignant neoplasm of prostate (HCC), Cancer, metastatic to bone (HCC), B12 deficiency * COMPREHENSIVE METABOLIC PANEL(Performed 03/23/2024) Performed for Malignant neoplasm of prostate (HCC), Cancer, metastatic to bone (HCC), High risk medications (not anticoagulants) long-term use * VITAMIN B12(Performed 03/23/2024) Performed for Malignant neoplasm of prostate (HCC), Cancer, metastatic to bone (HCC), B12 deficiency, High risk medications (not anticoagulants) long-term use * PSA SERIAL(Performed 03/23/2024) Performed for Malignant neoplasm of prostate (HCC), Cancer, metastatic to bone (HCC), B12 deficiency, High risk medications (not anticoagulants) long-term use * CBC W AUTO DIFFERENTIAL (CANCER CARE)(Performed 03/23/2024) Performed for Malignant neoplasm of prostate (HCC), Cancer, metastatic to bone (HCC), B12 deficiency, High risk medications (not anticoagulants) long-term use * VITAMIN B12(Performed 02/17/2024) Performed for Malignant neoplasm of prostate (HCC), Cancer, metastatic to bone (HCC), B12 deficiency * PSA SERIAL(Performed 02/17/2024) Performed for Malignant neoplasm of prostate (HCC), Cancer, metastatic to bone (HCC), B12 deficiency * COMPREHENSIVE METABOLIC PANEL(Performed 02/17/2024) Performed for Malignant neoplasm of prostate (HCC), Cancer, metastatic to bone (HCC), B12 deficiency * CBC W AUTO DIFFERENTIAL (CANCER CARE)(Performed 02/17/2024) Performed for Malignant neoplasm of prostate (HCC), Cancer, metastatic to bone (HCC), B12 deficiency * TEMPUS XF(Performed 01/08/2024) Performed for Malignant neoplasm of prostate (HCC), Cancer, metastatic to bone (HCC) * TEMPUS BLOOD DRAW(Performed 01/07/2024) Performed for Malignant neoplasm of prostate (HCC), Cancer, metastatic to bone (HCC), B12 deficiency * CBC W AUTO DIFFERENTIAL (CANCER CARE)(Performed 01/07/2024) Performed for Malignant neoplasm of prostate (HCC), Cancer, metastatic to bone (HCC) * COMPREHENSIVE METABOLIC PANEL(Performed 01/07/2024) Performed for Malignant neoplasm of prostate (HCC), Cancer, metastatic to bone (HCC) * PSA SERIAL(Performed 01/07/2024) Performed for Malignant neoplasm of prostate (HCC), Cancer, metastatic to bone (HCC) * CBC W AUTO DIFFERENTIAL (CANCER CARE)(Performed 12/05/2023) Performed for Malignant neoplasm of prostate (HCC), Cancer, metastatic to bone (HCC) * COMPREHENSIVE METABOLIC PANEL(Performed 12/05/2023) Performed for Malignant neoplasm of prostate (HCC), Cancer, metastatic to bone (HCC) * PSA SERIAL(Performed 12/05/2023) Performed for Malignant neoplasm of prostate (HCC), Cancer, metastatic to bone (HCC) * PET CT F18 PSMA SKULL MID THIGH(Performed 10/24/2023) Performed for Malignant neoplasm of prostate (HCC), Rising PSA following treatment for malignant neoplasm of prostate * CBC W AUTO DIFFERENTIAL (CANCER CARE)(Performed 10/10/2023) Performed for Malignant neoplasm of prostate (HCC), Cancer, metastatic to bone (HCC), B12 deficiency * COMPREHENSIVE METABOLIC PANEL(Performed 10/10/2023) Performed for Malignant neoplasm of prostate (HCC), Cancer, metastatic to bone (HCC) * PSA SERIAL(Performed 10/10/2023) Performed for Malignant neoplasm of prostate (HCC), Cancer, metastatic to bone (HCC) * CBC W AUTO DIFFERENTIAL (CANCER CARE)(Performed 08/27/2023) Performed for Malignant neoplasm of prostate (HCC), Cancer, metastatic to bone (HCC), B12 deficiency * COMPREHENSIVE METABOLIC PANEL(Performed 08/27/2023) Performed for Malignant neoplasm of prostate (HCC), Cancer, metastatic to bone (HCC) * PSA SERIAL(Performed 08/27/2023) Performed for Malignant neoplasm of prostate (HCC), Cancer, metastatic to bone (HCC) * CBC W AUTO DIFFERENTIAL (CANCER CARE)(Performed 07/16/2023) Performed for Malignant neoplasm of prostate (HCC), Cancer, metastatic to bone (HCC), B12 deficiency * COMPREHENSIVE METABOLIC PANEL(Performed 07/16/2023) Performed for Malignant neoplasm of prostate (HCC), Cancer, metastatic to bone (HCC) * VITAMIN B12(Performed 07/16/2023) Performed for B12 deficiency * PSA SERIAL(Performed 07/16/2023) Performed for Malignant neoplasm of prostate (HCC), Cancer, metastatic to bone (HCC) * PET CT F18 PSMA SKULL MID THIGH(Performed 05/30/2023) Performed for Malignant neoplasm of prostate (HCC), Elevated PSA * COMPREHENSIVE METABOLIC PANEL(Performed 05/16/2023) Performed for Malignant neoplasm of prostate (HCC), Cancer, metastatic to bone (HCC) * PSA SERIAL(Performed 05/16/2023) Performed for Malignant neoplasm of prostate (HCC), Cancer, metastatic to bone (HCC) * CBC W AUTO DIFFERENTIAL (CANCER CARE)(Performed 05/16/2023) Performed for Malignant neoplasm of prostate (HCC), Cancer, metastatic to bone (HCC), B12 deficiency * COMPREHENSIVE METABOLIC PANEL(Performed 03/21/2023) Performed for Malignant neoplasm of prostate (HCC), Cancer, metastatic to bone (HCC), Hypokalemia * PSA SERIAL(Performed 03/21/2023) Performed for Malignant neoplasm of prostate (HCC), Cancer, metastatic to bone (HCC) * CBC W AUTO DIFFERENTIAL (CANCER CARE)(Performed 03/21/2023) Performed for Malignant neoplasm of prostate (HCC), Cancer, metastatic to bone (HCC), B12 deficiency * PAIN MANAGEMENT PROCEDURE TIME(Performed 02/13/2023) Performed for Lumbar spondylosis * COMPREHENSIVE METABOLIC PANEL(Performed 02/07/2023) Performed for Malignant neoplasm of prostate (HCC), Cancer, metastatic to bone (HCC) * PSA SERIAL(Performed 02/07/2023) Performed for Malignant neoplasm of prostate (HCC), Cancer, metastatic to bone (HCC) * CBC W AUTO DIFFERENTIAL (CANCER CARE)(Performed 02/07/2023) Performed for Malignant neoplasm of prostate (HCC), B12 deficiency, Cancer, metastatic to bone (HCC) * COMPREHENSIVE METABOLIC PANEL(Performed 12/27/2022) Performed for Malignant neoplasm of prostate (HCC), Cancer, metastatic to bone (HCC) * VITAMIN B12(Performed 12/27/2022) Performed for B12 deficiency * PSA SERIAL(Performed 12/27/2022) Performed for Malignant neoplasm of prostate (HCC), Cancer, metastatic to bone (HCC) * CBC W AUTO DIFFERENTIAL (CANCER CARE)(Performed 12/27/2022) Performed for Malignant neoplasm of prostate (HCC), Cancer, metastatic to bone (HCC), B12 deficiency * IR KYPHOPLASTY(Performed 12/12/2022) Performed for Compression fracture of L1 vertebra with delayed healing, subsequent encounter * PATHOLOGY TISSUE EXAM (STL)(Performed 12/12/2022) Performed for Compression fracture of L1 vertebra with delayed healing, subsequent encounter * CBC W AUTO DIFFERENTIAL(Performed 12/12/2022) Performed for Pre-operative laboratory examination, Malignant neoplasm of prostate (HCC) * PSA SERIAL(Performed 11/29/2022) Performed for Malignant neoplasm of prostate (HCC), Cancer, metastatic to bone (HCC) * VITAMIN B12(Performed 11/29/2022) Performed for B12 deficiency * COMPREHENSIVE METABOLIC PANEL(Performed 11/29/2022) Performed for Malignant neoplasm of prostate (HCC), Cancer, metastatic to bone (HCC) * CBC W AUTO DIFFERENTIAL (CANCER CARE)(Performed 11/29/2022) Performed for Malignant neoplasm of prostate (HCC), Cancer, metastatic to bone (HCC), B12 deficiency * MRI LUMBAR SPINE WO CONTRAST(Performed 11/25/2022) Performed for Compression fracture of L1 vertebra with delayed healing, subsequent encounter, Malignant neoplasm of prostate (HCC) * XR HIP RIGHT 2VW OR MORE(Performed 10/22/2022) Performed for Hip pain * COMPREHENSIVE METABOLIC PANEL(Performed 10/04/2022) Performed for Malignant neoplasm of prostate (HCC), Cancer, metastatic to bone (HCC), Hypokalemia * PSA SERIAL(Performed 10/04/2022) Performed for Malignant neoplasm of prostate (HCC), Cancer, metastatic to bone (HCC) * CBC W AUTO DIFFERENTIAL (CANCER CARE)(Performed 10/04/2022) Performed for Malignant neoplasm of prostate (HCC), Cancer, metastatic to bone (HCC), B12 deficiency * COMPREHENSIVE METABOLIC PANEL(Performed 09/06/2022) Performed for Malignant neoplasm of prostate (HCC), Cancer, metastatic to bone (HCC), Hypokalemia, B12 deficiency * PSA SERIAL(Performed 09/06/2022) Performed for Malignant neoplasm of prostate (HCC), Cancer, metastatic to bone (HCC) * CBC W AUTO DIFFERENTIAL (CANCER CARE)(Performed 09/06/2022) Performed for Malignant neoplasm of prostate (HCC), Cancer, metastatic to bone (HCC), B12 deficiency * COMPREHENSIVE METABOLIC PANEL(Performed 08/09/2022) Performed for Malignant neoplasm of prostate (HCC), Cancer, metastatic to bone (HCC) * CBC W AUTO DIFFERENTIAL (CANCER CARE)(Performed 08/09/2022) Performed for Malignant neoplasm of prostate (HCC), Cancer, metastatic to bone (HCC) * PSA SERIAL(Performed 08/09/2022) Performed for Malignant neoplasm of prostate (HCC), Cancer, metastatic to bone (HCC) * COMPREHENSIVE METABOLIC PANEL(Performed 07/12/2022) Performed for Malignant neoplasm of prostate (HCC), Cancer, metastatic to bone (HCC), B12 deficiency * CBC W AUTO DIFFERENTIAL (CANCER CARE)(Performed 07/12/2022) Performed for Malignant neoplasm of prostate (HCC), Cancer, metastatic to bone (HCC), B12 deficiency * PSA SERIAL(Performed 07/12/2022) Performed for Malignant neoplasm of prostate (HCC), Cancer, metastatic to bone (HCC), B12 deficiency * VITAMIN B12(Performed 07/12/2022) Performed for Malignant neoplasm of prostate (HCC), Cancer, metastatic to bone (HCC), B12 deficiency * COMPREHENSIVE METABOLIC PANEL(Performed 06/14/2022) Performed for Malignant neoplasm of prostate (HCC), Cancer, metastatic to bone (HCC), Hypokalemia * CBC W AUTO DIFFERENTIAL (CANCER CARE)(Performed 06/14/2022) Performed for Malignant neoplasm of prostate (HCC), Cancer, metastatic to bone (HCC), B12 deficiency * PSA SERIAL(Performed 06/14/2022) Performed for Malignant neoplasm of prostate (HCC), Cancer, metastatic to bone (HCC) * VITAMIN B12(Performed 06/14/2022) Performed for B12 deficiency * PET CT F18 PSMA SKULL MID THIGH(Performed 05/31/2022) Performed for Malignant neoplasm of prostate (HCC), Cancer, metastatic to bone (HCC) * COMPREHENSIVE METABOLIC PANEL(Performed 05/17/2022) Performed for Malignant neoplasm of prostate (HCC), Cancer, metastatic to bone (HCC), Hypokalemia * CBC W AUTO DIFFERENTIAL (CANCER CARE)(Performed 05/17/2022) Performed for Malignant neoplasm of prostate (HCC), Cancer, metastatic to bone (HCC), B12 deficiency * PSA SERIAL(Performed 05/17/2022) Performed for Malignant neoplasm of prostate (HCC), Cancer, metastatic to bone (HCC) * COMPREHENSIVE METABOLIC PANEL(Performed 04/19/2022) Performed for Malignant neoplasm of prostate (HCC), Cancer, metastatic to bone (HCC), Hypokalemia * CBC W AUTO DIFFERENTIAL (CANCER CARE)(Performed 04/19/2022) Performed for Malignant neoplasm of prostate (HCC), Cancer, metastatic to bone (HCC), B12 deficiency * PSA SERIAL(Performed 04/19/2022) Performed for Malignant neoplasm of prostate (HCC), Cancer, metastatic to bone (HCC) * COMPREHENSIVE METABOLIC PANEL(Performed 03/22/2022) Performed for Malignant neoplasm of prostate (HCC) * CBC W AUTO DIFFERENTIAL (CANCER CARE)(Performed 03/22/2022) Performed for Malignant neoplasm of prostate (HCC) * PSA SERIAL(Performed 03/22/2022) Performed for Malignant neoplasm of prostate (HCC) * MRI THORACIC SPINE WWO CONT(Performed 03/15/2022) Performed for Cancer, metastatic to bone (HCC) * COMPREHENSIVE METABOLIC PANEL(Performed 02/22/2022) Performed for Malignant neoplasm of prostate (HCC), B12 deficiency, Cancer, metastatic to bone (HCC) * CBC W AUTO DIFFERENTIAL (CANCER CARE)(Performed 02/22/2022) Performed for Malignant neoplasm of prostate (HCC), B12 deficiency, Cancer, metastatic to bone (HCC) * VITAMIN B12(Performed 02/22/2022) Performed for B12 deficiency * PSA SERIAL(Performed 02/22/2022) Performed for Malignant neoplasm of prostate (HCC), Cancer, metastatic to bone (HCC) * PET CT F18 PSMA SKULL MID THIGH(Performed 02/08/2022) Performed for Malignant neoplasm of prostate (HCC), Cancer, metastatic to bone (HCC) * COMPREHENSIVE METABOLIC PANEL(Performed 01/25/2022) Performed for Malignant neoplasm of prostate (HCC), Cancer, metastatic to bone (HCC), Hypokalemia * CBC W AUTO DIFFERENTIAL (CANCER CARE)(Performed 01/25/2022) Performed for Malignant neoplasm of prostate (HCC), Cancer, metastatic to bone (HCC), B12 deficiency * PSA SERIAL(Performed 01/25/2022) Performed for Malignant neoplasm of prostate (HCC), Cancer, metastatic to bone (HCC) * COMPREHENSIVE METABOLIC PANEL(Performed 12/28/2021) Performed for Malignant neoplasm of prostate (HCC), Cancer, metastatic to bone (HCC), Hypokalemia * PSA SERIAL(Performed 12/28/2021) Performed for Malignant neoplasm of prostate (HCC), Cancer, metastatic to bone (HCC) * CBC W AUTO DIFFERENTIAL (CANCER CARE)(Performed 12/28/2021) Performed for Malignant neoplasm of prostate (HCC), Cancer, metastatic to bone (HCC), B12 deficiency * PSA SERIAL(Performed 11/30/2021) Performed for Malignant neoplasm of prostate (HCC), Cancer, metastatic to bone (HCC) * COMPREHENSIVE METABOLIC PANEL(Performed 11/30/2021) Performed for Malignant neoplasm of prostate (HCC), Cancer, metastatic to bone (HCC), Hypokalemia * CBC W AUTO DIFFERENTIAL (CANCER CARE)(Performed 11/30/2021) Performed for Malignant neoplasm of prostate (HCC), Cancer, metastatic to bone (HCC), B12 deficiency * COMPREHENSIVE METABOLIC PANEL(Performed 10/31/2021) Performed for Malignant neoplasm of prostate (HCC), Cancer, metastatic to bone (HCC), Hypokalemia * PSA SERIAL(Performed 10/31/2021) Performed for Malignant neoplasm of prostate (HCC), Cancer, metastatic to bone (HCC) * CBC W AUTO DIFFERENTIAL (CANCER CARE)(Performed 10/31/2021) Performed for Malignant neoplasm of prostate (HCC), Cancer, metastatic to bone (HCC), B12 deficiency * COMPREHENSIVE METABOLIC PANEL(Performed 10/03/2021) Performed for Malignant neoplasm of prostate (HCC) * CBC W AUTO DIFFERENTIAL (CANCER CARE)(Performed 10/03/2021) Performed for Malignant neoplasm of prostate (HCC) * PSA SERIAL(Performed 10/03/2021) Performed for Malignant neoplasm of prostate (HCC) * VITAMIN B12(Performed 10/03/2021) Performed for B12 deficiency * COMPREHENSIVE METABOLIC PANEL(Performed 09/05/2021) Performed for Malignant neoplasm of prostate (HCC), Cancer, metastatic to bone (HCC), Hypokalemia * PSA SERIAL(Performed 09/05/2021) Performed for Malignant neoplasm of prostate (HCC), Cancer, metastatic to bone (HCC) * CBC W AUTO DIFFERENTIAL (CANCER CARE)(Performed 09/05/2021) Performed for Malignant neoplasm of prostate (HCC), Cancer, metastatic to bone (HCC), B12 deficiency * COMPREHENSIVE METABOLIC PANEL(Performed 08/08/2021) Performed for Malignant neoplasm of prostate (HCC), Cancer, metastatic to bone (HCC) * PSA SERIAL(Performed 08/08/2021) Performed for Malignant neoplasm of prostate (HCC), Cancer, metastatic to bone (HCC) * CBC W AUTO DIFFERENTIAL (CANCER CARE)(Performed 08/08/2021) Performed for Malignant neoplasm of prostate (HCC), Cancer, metastatic to bone (HCC) * VITAMIN B12(Performed 07/11/2021) Performed for Malignant neoplasm of prostate (HCC), Cancer, metastatic to bone (HCC), Hypokalemia, B12 deficiency * PSA SERIAL(Performed 07/11/2021) Performed for Malignant neoplasm of prostate (HCC), Cancer, metastatic to bone (HCC), Hypokalemia, B12 deficiency * CBC W AUTO DIFFERENTIAL (CANCER CARE)(Performed 07/11/2021) Performed for Malignant neoplasm of prostate (HCC), Cancer, metastatic to bone (HCC), Hypokalemia, B12 deficiency * COMPREHENSIVE METABOLIC PANEL(Performed 07/11/2021) Performed for Malignant neoplasm of prostate (HCC), Cancer, metastatic to bone (HCC), Hypokalemia, B12 deficiency * COMPREHENSIVE METABOLIC PANEL(Performed 05/16/2021) Performed for Malignant neoplasm of prostate (HCC), Cancer, metastatic to bone (HCC), Hypokalemia * CBC W AUTO DIFFERENTIAL (CANCER CARE)(Performed 05/16/2021) Performed for Malignant neoplasm of prostate (HCC), Cancer, metastatic to bone (HCC), B12 deficiency * PSA SERIAL(Performed 05/16/2021) Performed for Malignant neoplasm of prostate (HCC) * CT CHEST ABDOMEN PELVIS W CONT(Performed 05/08/2021) Performed for Malignant neoplasm of prostate (HCC) * NM BONE SCAN WHOLE BODY(Performed 05/08/2021) Performed for Malignant neoplasm of prostate (HCC) * CREATININE - POCT INTERFACED(Performed 05/08/2021) * PSA SERIAL(Performed 04/04/2021) Performed for Malignant neoplasm of prostate (HCC), Cancer, metastatic to bone (HCC) * COMPREHENSIVE METABOLIC PANEL(Performed 04/04/2021) Performed for Malignant neoplasm of prostate (HCC), Cancer, metastatic to bone (HCC), Hypokalemia * CBC W AUTO DIFFERENTIAL (CANCER CARE)(Performed 04/04/2021) Performed for Malignant neoplasm of prostate (HCC), Cancer, metastatic to bone (HCC), B12 deficiency * PSA SERIAL(Performed 02/19/2021) Performed for Malignant neoplasm of prostate (HCC), B12 deficiency * VITAMIN B12(Performed 02/19/2021) Performed for Malignant neoplasm of prostate (HCC), B12 deficiency * COMPREHENSIVE METABOLIC PANEL(Performed 02/19/2021) Performed for Malignant neoplasm of prostate (HCC), B12 deficiency * CBC W AUTO DIFFERENTIAL (CANCER CARE)(Performed 02/19/2021) Performed for Malignant neoplasm of prostate (HCC), B12 deficiency * COMPREHENSIVE METABOLIC PANEL(Performed 01/17/2021) Performed for Malignant neoplasm of prostate (HCC), Cancer, metastatic to bone (HCC), Hypokalemia * VITAMIN B12(Performed 01/17/2021) Performed for B12 deficiency * PSA SERIAL(Performed 01/17/2021) Performed for Malignant neoplasm of prostate (HCC), Cancer, metastatic to bone (HCC) * CBC W AUTO DIFFERENTIAL (CANCER CARE)(Performed 01/17/2021) Performed for Malignant neoplasm of prostate (HCC), B12 deficiency, Cancer, metastatic to bone (HCC) * TESTOSTERONE TOTAL(Performed 12/25/2020) Performed for Malignant neoplasm of prostate (HCC), Cancer, metastatic to bone (HCC), Hypokalemia, B12 deficiency * VITAMIN B12(Performed 12/25/2020) Performed for Malignant neoplasm of prostate (HCC), Cancer, metastatic to bone (HCC), Hypokalemia, B12 deficiency * PSA SERIAL(Performed 12/25/2020) Performed for Malignant neoplasm of prostate (HCC) * COMPREHENSIVE METABOLIC PANEL(Performed 12/25/2020) Performed for Malignant neoplasm of prostate (HCC), Cancer, metastatic to bone (HCC), Hypokalemia * CBC W AUTO DIFFERENTIAL (CANCER CARE)(Performed 12/25/2020) Performed for Malignant neoplasm of prostate (HCC), Cancer, metastatic to bone (HCC), B12 deficiency * PSA SERIAL(Performed 11/22/2020) Performed for Malignant neoplasm of prostate (HCC) * COMPREHENSIVE METABOLIC PANEL(Performed 11/22/2020) Performed for Malignant neoplasm of prostate (HCC), Cancer, metastatic to bone (HCC), Hypokalemia * CBC W AUTO DIFFERENTIAL (CANCER CARE)(Performed 11/22/2020) Performed for Malignant neoplasm of prostate (HCC), Cancer, metastatic to bone (HCC), B12 deficiency * PSA SERIAL(Performed 10/25/2020) Performed for Malignant neoplasm of prostate (HCC), Cancer, metastatic to bone (HCC), Hypokalemia, B12 deficiency * VITAMIN B12(Performed 10/25/2020) Performed for Malignant neoplasm of prostate (HCC), Cancer, metastatic to bone (HCC), Hypokalemia, B12 deficiency * CBC W AUTO DIFFERENTIAL (CANCER CARE)(Performed 10/25/2020) Performed for Malignant neoplasm of prostate (HCC), Cancer, metastatic to bone (HCC), Hypokalemia, B12 deficiency * COMPREHENSIVE METABOLIC PANEL(Performed 10/25/2020) Performed for Malignant neoplasm of prostate (HCC), Cancer, metastatic to bone (HCC), Hypokalemia, B12 deficiency * CBC W AUTO DIFFERENTIAL (CANCER CARE)(Performed 09/25/2020) Performed for Malignant neoplasm of prostate (HCC), B12 deficiency * COMPREHENSIVE METABOLIC PANEL(Performed 09/25/2020) Performed for Malignant neoplasm of prostate (HCC), B12 deficiency * CBC W AUTO DIFFERENTIAL (CANCER CARE)(Performed 08/25/2020) Performed for Malignant neoplasm of prostate (HCC) * COMPREHENSIVE METABOLIC PANEL(Performed 08/25/2020) Performed for Malignant neoplasm of prostate (HCC) * VITAMIN B12(Performed 07/26/2020) Performed for Malignant neoplasm of prostate (HCC), B12 deficiency * COMPREHENSIVE METABOLIC PANEL(Performed 07/26/2020) Performed for Malignant neoplasm of prostate (HCC) * CBC W AUTO DIFFERENTIAL (CANCER CARE)(Performed 07/26/2020) Performed for Malignant neoplasm of prostate (HCC) * PSA SERIAL(Performed 06/26/2020) Performed for Malignant neoplasm of prostate (HCC), Cancer, metastatic to bone (HCC), Hypokalemia * COMPREHENSIVE METABOLIC PANEL(Performed 06/26/2020) Performed for Malignant neoplasm of prostate (HCC), Cancer, metastatic to bone (HCC), Hypokalemia * CBC W AUTO DIFFERENTIAL (CANCER CARE)(Performed 06/26/2020) Performed for Malignant neoplasm of prostate (HCC), Cancer, metastatic to bone (HCC), Hypokalemia * PSA SERIAL(Performed 05/22/2020) Performed for Malignant neoplasm of prostate (HCC), Cancer, metastatic to bone (HCC) * COMPREHENSIVE METABOLIC PANEL(Performed 05/22/2020) Performed for Malignant neoplasm of prostate (HCC), Cancer, metastatic to bone (HCC) * CBC W AUTO DIFFERENTIAL (CANCER CARE)(Performed 05/22/2020) Performed for Malignant neoplasm of prostate (HCC), Cancer, metastatic to bone (HCC) * COMPREHENSIVE METABOLIC PANEL(Performed 04/24/2020) Performed for Malignant neoplasm of prostate (HCC), Cancer, metastatic to bone (HCC) * PSA SERIAL(Performed 04/24/2020) Performed for Malignant neoplasm of prostate (HCC), Cancer, metastatic to bone (HCC) * CBC W AUTO DIFFERENTIAL (CANCER CARE)(Performed 04/24/2020) Performed for Malignant neoplasm of prostate (HCC), Cancer, metastatic to bone (HCC) * VITAMIN B12 FOLATE PANEL(Performed 03/27/2020) Performed for Malignant neoplasm of prostate (HCC), Cancer, metastatic to bone (HCC), Hypokalemia, Thrombocytopenia (HCC) * PSA SERIAL(Performed 03/27/2020) Performed for Malignant neoplasm of prostate (HCC), Cancer, metastatic to bone (HCC), Hypokalemia * COMPREHENSIVE METABOLIC PANEL(Performed 03/27/2020) Performed for Malignant neoplasm of prostate (HCC), Cancer, metastatic to bone (HCC), Hypokalemia * CBC W AUTO DIFFERENTIAL (CANCER CARE)(Performed 03/27/2020) Performed for Malignant neoplasm of prostate (HCC), Cancer, metastatic to bone (HCC), Hypokalemia * PSA SERIAL(Performed 02/21/2020) Performed for Malignant neoplasm of prostate (HCC) * COMPREHENSIVE METABOLIC PANEL(Performed 02/21/2020) Performed for Malignant neoplasm of prostate (HCC) * CBC W AUTO DIFFERENTIAL (CANCER CARE)(Performed 02/21/2020) Performed for Malignant neoplasm of prostate (HCC) * COMPREHENSIVE METABOLIC PANEL(Performed 01/24/2020) Performed for Malignant neoplasm of prostate (HCC) * PSA SERIAL(Performed 01/24/2020) Performed for Malignant neoplasm of prostate (HCC) * CBC W AUTO DIFFERENTIAL (CANCER CARE)(Performed 01/24/2020) Performed for Malignant neoplasm of prostate (HCC) * COMPREHENSIVE METABOLIC PANEL(Performed 12/27/2019) Performed for Malignant neoplasm of prostate (HCC) * PSA SERIAL(Performed 12/27/2019) Performed for Malignant neoplasm of prostate (HCC) * CBC W AUTO DIFFERENTIAL (CANCER CARE)(Performed 12/27/2019) Performed for Malignant neoplasm of prostate (HCC) * US SOFT TISSUE HEAD NECK(Performed 11/29/2019) Performed for Malignant neoplasm of prostate (HCC), Enlarged lymph nodes * XR SHOULDER LEFT 2VW OR MORE(Performed 11/22/2019) Performed for Malignant neoplasm of prostate (HCC) * COMPREHENSIVE METABOLIC PANEL(Performed 11/22/2019) Performed for Malignant neoplasm of prostate (HCC) * CBC W AUTO DIFFERENTIAL (CANCER CARE)(Performed 11/22/2019) Performed for Malignant neoplasm of prostate (HCC) * COMPREHENSIVE METABOLIC PANEL(Performed 10/25/2019) Performed for Malignant neoplasm of prostate (HCC) * CBC W AUTO DIFFERENTIAL (CANCER CARE)(Performed 10/25/2019) Performed for Malignant neoplasm of prostate (HCC) * VITAMIN D 25-HYDROXY(Performed 09/27/2019) Performed for Vitamin D deficiency * PSA SERIAL(Performed 09/27/2019) Performed for Malignant neoplasm of prostate (HCC), Cancer, metastatic to bone (HCC) * COMPREHENSIVE METABOLIC PANEL(Performed 09/27/2019) Performed for Malignant neoplasm of prostate (HCC), Cancer, metastatic to bone (HCC) * CBC W AUTO DIFFERENTIAL (CANCER CARE)(Performed 09/27/2019) Performed for Malignant neoplasm of prostate (HCC), Cancer, metastatic to bone (HCC) * PSA SERIAL(Performed 08/24/2019) Performed for Malignant neoplasm of prostate (HCC), Cancer, metastatic to bone (HCC) * COMPREHENSIVE METABOLIC PANEL(Performed 08/24/2019) Performed for Malignant neoplasm of prostate (HCC), Cancer, metastatic to bone (HCC) * CBC W AUTO DIFFERENTIAL (CANCER CARE)(Performed 08/24/2019) Performed for Malignant neoplasm of prostate (HCC), Cancer, metastatic to bone (HCC) * PSA SERIAL(Performed 07/20/2019) Performed for Malignant neoplasm of prostate (HCC), Cancer, metastatic to bone (HCC) * COMPREHENSIVE METABOLIC PANEL(Performed 07/20/2019) Performed for Malignant neoplasm of prostate (HCC), Cancer, metastatic to bone (HCC) * CBC W AUTO DIFFERENTIAL (CANCER CARE)(Performed 07/20/2019) Performed for Malignant neoplasm of prostate (HCC), Cancer, metastatic to bone (HCC) * PSA SERIAL(Performed 06/18/2019) Performed for Malignant neoplasm of prostate (HCC) * COMPREHENSIVE METABOLIC PANEL(Performed 06/18/2019) Performed for Malignant neoplasm of prostate (HCC), Cancer, metastatic to bone (HCC) * CBC W AUTO DIFFERENTIAL (CANCER CARE)(Performed 06/18/2019) Performed for Malignant neoplasm of prostate (HCC), Cancer, metastatic to bone (HCC) * PSA SERIAL(Performed 05/20/2019) Performed for Malignant neoplasm of prostate (HCC), Cancer, metastatic to bone (HCC) * XR CHEST 2VW(Performed 05/20/2019) Performed for Pneumonia due to infectious organism, unspecified laterality, unspecified part of lung * URINALYSIS REFLEX MICROSCOPIC REFLEX CULTURE(Performed 05/20/2019) Performed for Urinary frequency * BASIC METABOLIC PANEL (CALCIUM TOTAL)(Performed 05/20/2019) Performed for Malignant neoplasm of prostate (HCC), Cancer, metastatic to bone (HCC), Hypokalemia, Pneumonia due to infectious organism, unspecified laterality, unspecified part of lung, Urinary frequency * COMPREHENSIVE METABOLIC PANEL(Performed 05/20/2019) Performed for Malignant neoplasm of prostate (HCC), Cancer, metastatic to bone (HCC), Hypokalemia * CBC W AUTO DIFFERENTIAL (CANCER CARE)(Performed 05/20/2019) Performed for Malignant neoplasm of prostate (HCC), Cancer, metastatic to bone (HCC) * PSA SERIAL(Performed 04/22/2019) Performed for Malignant neoplasm of prostate (HCC), Cancer, metastatic to bone (HCC) * COMPREHENSIVE METABOLIC PANEL(Performed 04/22/2019) Performed for Malignant neoplasm of prostate (HCC), Cancer, metastatic to bone (HCC), Hypokalemia * CBC W AUTO DIFFERENTIAL (CANCER CARE)(Performed 04/22/2019) Performed for Malignant neoplasm of prostate (HCC), Cancer, metastatic to bone (HCC) * CBC W AUTO DIFFERENTIAL(Performed 04/09/2019) * COMPREHENSIVE METABOLIC PANEL(Performed 04/09/2019) * PSA SERIAL(Performed 03/25/2019) Performed for Malignant neoplasm of prostate (HCC), Cancer, metastatic to bone (HCC) * COMPREHENSIVE METABOLIC PANEL(Performed 03/25/2019) Performed for Malignant neoplasm of prostate (HCC), Cancer, metastatic to bone (HCC) * CBC W AUTO DIFFERENTIAL (CANCER CARE)(Performed 03/25/2019) Performed for Malignant neoplasm of prostate (HCC), Cancer, metastatic to bone (HCC) * PSA SERIAL(Performed 02/25/2019) Performed for Malignant neoplasm of prostate (HCC), Cancer, metastatic to bone (HCC) * COMPREHENSIVE METABOLIC PANEL(Performed 02/25/2019) Performed for Malignant neoplasm of prostate (HCC), Cancer, metastatic to bone (HCC), Hypokalemia * CBC W AUTO DIFFERENTIAL (CANCER CARE)(Performed 02/25/2019) Performed for Malignant neoplasm of prostate (HCC), Cancer, metastatic to bone (HCC) * PSA SERIAL(Performed 01/28/2019) Performed for Malignant neoplasm of prostate (HCC), Cancer, metastatic to bone (HCC) * COMPREHENSIVE METABOLIC PANEL(Performed 01/28/2019) Performed for Malignant neoplasm of prostate (HCC), Cancer, metastatic to bone (HCC), Hypokalemia * CBC W AUTO DIFFERENTIAL (CANCER CARE)(Performed 01/28/2019) Performed for Malignant neoplasm of prostate (HCC), Cancer, metastatic to bone (HCC) * PSA SERIAL(Performed 12/30/2018) Performed for Malignant neoplasm of prostate (HCC), Cancer, metastatic to bone (HCC) * COMPREHENSIVE METABOLIC PANEL(Performed 12/30/2018) Performed for Malignant neoplasm of prostate (HCC), Cancer, metastatic to bone (HCC) * CBC W AUTO DIFFERENTIAL (CANCER CARE)(Performed 12/30/2018) Performed for Malignant neoplasm of prostate (HCC), Cancer, metastatic to bone (HCC) * PSA SERIAL(Performed 12/02/2018) Performed for Malignant neoplasm of prostate (HCC), Cancer, metastatic to bone (HCC) * CBC W AUTO DIFFERENTIAL (CANCER CARE)(Performed 12/02/2018) Performed for Malignant neoplasm of prostate (HCC), Cancer, metastatic to bone (HCC) * COMPREHENSIVE METABOLIC PANEL(Performed 12/02/2018) Performed for Malignant neoplasm of prostate (HCC), Cancer, metastatic to bone (HCC) * PSA SERIAL(Performed 11/04/2018) Performed for Malignant neoplasm of prostate (HCC), Cancer, metastatic to bone (HCC) * COMPREHENSIVE METABOLIC PANEL(Performed 11/04/2018) Performed for Malignant neoplasm of prostate (HCC), Cancer, metastatic to bone (HCC) * CBC W AUTO DIFFERENTIAL (CANCER CARE)(Performed 11/04/2018) Performed for Malignant neoplasm of prostate (HCC), Cancer, metastatic to bone (HCC) * CT CHEST ABDOMEN PELVIS W CONT(Performed 10/28/2018) Performed for Malignant neoplasm of prostate (HCC), Cancer, metastatic to bone (HCC) * NM BONE SCAN WHOLE BODY(Performed 10/28/2018) Performed for Malignant neoplasm of prostate (HCC), Cancer, metastatic to bone (HCC) * PSA SERIAL(Performed 09/30/2018) Performed for Malignant neoplasm of prostate (HCC), Cancer, metastatic to bone (HCC) * COMPREHENSIVE METABOLIC PANEL(Performed 09/30/2018) Performed for Malignant neoplasm of prostate (HCC), Cancer, metastatic to bone (HCC) * CBC W AUTO DIFFERENTIAL (CANCER CARE)(Performed 09/30/2018) Performed for Malignant neoplasm of prostate (HCC), Cancer, metastatic to bone (HCC) * PSA SERIAL(Performed 09/02/2018) Performed for Malignant neoplasm of prostate (HCC), Cancer, metastatic to bone (HCC) * COMPREHENSIVE METABOLIC PANEL(Performed 09/02/2018) Performed for Malignant neoplasm of prostate (HCC), Cancer, metastatic to bone (HCC) * CBC W AUTO DIFFERENTIAL (CANCER CARE)(Performed 09/02/2018) Performed for Malignant neoplasm of prostate (HCC), Cancer, metastatic to bone (HCC) * PSA SERIAL(Performed 08/03/2018) Performed for Malignant neoplasm of prostate (HCC), Cancer, metastatic to bone (HCC) * CBC W AUTO DIFFERENTIAL (CANCER CARE)(Performed 08/03/2018) Performed for Malignant neoplasm of prostate (HCC), Cancer, metastatic to bone (HCC) * COMPREHENSIVE METABOLIC PANEL(Performed 08/03/2018) Performed for Malignant neoplasm of prostate (HCC), Cancer, metastatic to bone (HCC) * CT CHEST WO CONTRAST(Performed 07/28/2018) Performed for Malignant neoplasm of prostate (HCC) * PSA SERIAL(Performed 07/03/2018) Performed for Malignant neoplasm of prostate (HCC), Cancer, metastatic to bone (HCC) * COMPREHENSIVE METABOLIC PANEL(Performed 07/03/2018) Performed for Malignant neoplasm of prostate (HCC), Cancer, metastatic to bone (HCC) * CBC W AUTO DIFFERENTIAL (CANCER CARE)(Performed 07/03/2018) Performed for Malignant neoplasm of prostate (HCC), Cancer, metastatic to bone (HCC) * PSA SERIAL(Performed 2018) Performed for Malignant neoplasm of prostate (HCC), Cancer, metastatic to bone (HCC) * COMPREHENSIVE METABOLIC PANEL(Performed 2018) Performed for Malignant neoplasm of prostate (HCC), Cancer, metastatic to bone (HCC) * CBC W AUTO DIFFERENTIAL (CANCER CARE)(Performed 2018) Performed for Malignant neoplasm of prostate (HCC), Cancer, metastatic to bone (HCC) * PSA SERIAL(Performed 05/07/2018) Performed for Malignant neoplasm of prostate (HCC), Cancer, metastatic to bone (HCC) * COMPREHENSIVE METABOLIC PANEL(Performed 05/07/2018) Performed for Malignant neoplasm of prostate (HCC), Cancer, metastatic to bone (HCC) * CBC W AUTO DIFFERENTIAL (CANCER CARE)(Performed 05/07/2018) Performed for Malignant neoplasm of prostate (HCC), Cancer, metastatic to bone (HCC) * PSA SERIAL(Performed 04/02/2018) Performed for Malignant neoplasm of prostate (HCC), Cancer, metastatic to bone (HCC) * COMPREHENSIVE METABOLIC PANEL(Performed 04/02/2018) Performed for Malignant neoplasm of prostate (HCC), Cancer, metastatic to bone (HCC) * CBC W AUTO DIFFERENTIAL (CANCER CARE)(Performed 04/02/2018) Performed for Malignant neoplasm of prostate (HCC), Cancer, metastatic to bone (HCC) * PSA SERIAL(Performed 03/05/2018) Performed for Malignant neoplasm of prostate (HCC), Cancer, metastatic to bone (HCC) * COMPREHENSIVE METABOLIC PANEL(Performed 03/05/2018) Performed for Malignant neoplasm of prostate (HCC), Cancer, metastatic to bone (HCC) * CBC W AUTO DIFFERENTIAL (CANCER CARE)(Performed 03/05/2018) Performed for Malignant neoplasm of prostate (HCC), Cancer, metastatic to bone (HCC) * COMPREHENSIVE METABOLIC PANEL(Performed 02/04/2018) Performed for Malignant neoplasm of prostate (HCC), Cancer, metastatic to bone (HCC), Elevated LFTs * PSA SERIAL(Performed 02/04/2018) Performed for Malignant neoplasm of prostate (HCC), Cancer, metastatic to bone (HCC) * CBC W AUTO DIFFERENTIAL (CANCER CARE)(Performed 02/04/2018) Performed for Malignant neoplasm of prostate (HCC), Cancer, metastatic to bone (HCC) * PSA SERIAL(Performed 01/02/2018) Performed for Malignant neoplasm of prostate (HCC), Cancer, metastatic to bone (HCC) * COMPREHENSIVE METABOLIC PANEL(Performed 01/02/2018) Performed for Malignant neoplasm of prostate (HCC), Cancer, metastatic to bone (HCC), Elevated LFTs * CBC W AUTO DIFFERENTIAL (CANCER CARE)(Performed 01/02/2018) Performed for Malignant neoplasm of prostate (HCC), Cancer, metastatic to bone (HCC) * NM BONE SCAN WHOLE BODY(Performed 12/31/2017) Performed for Malignant neoplasm of prostate (HCC), Cancer, metastatic to bone (HCC) * CT CHEST WO CONTRAST(Performed 12/31/2017) Performed for Malignant neoplasm of prostate (HCC), Cancer, metastatic to bone (HCC), Pulmonary nodules * PSA SERIAL(Performed 12/04/2017) Performed for Malignant neoplasm of prostate (HCC), Cancer, metastatic to bone (HCC) * COMPREHENSIVE METABOLIC PANEL(Performed 12/04/2017) Performed for Malignant neoplasm of prostate (HCC), Cancer, metastatic to bone (HCC), Elevated LFTs * CBC W AUTO DIFFERENTIAL (CANCER CARE)(Performed 12/04/2017) Performed for Malignant neoplasm of prostate (HCC) * PSA SERIAL(Performed 11/03/2017) Performed for Malignant neoplasm of prostate (HCC), Cancer, metastatic to bone (HCC) * COMPREHENSIVE METABOLIC PANEL(Performed 11/03/2017) Performed for Malignant neoplasm of prostate (HCC), Cancer, metastatic to bone (HCC), Elevated LFTs * CBC W AUTO DIFFERENTIAL (CANCER CARE)(Performed 11/03/2017) Performed for Malignant neoplasm of prostate (HCC) * HEPATITIS SCREEN ACUTE(Performed 10/06/2017) Performed for Malignant neoplasm of prostate (HCC), Cancer, metastatic to bone (HCC), Elevated LFTs, High risk medications (not anticoagulants) long-term use, Abnormal AST and ALT, Elevated bilirubin * PSA SERIAL(Performed 10/06/2017) Performed for Malignant neoplasm of prostate (HCC), Cancer, metastatic to bone (HCC) * COMPREHENSIVE METABOLIC PANEL(Performed 10/06/2017) Performed for Malignant neoplasm of prostate (HCC), Cancer, metastatic to bone (HCC), Elevated LFTs * COMPREHENSIVE METABOLIC PANEL(Performed 09/22/2017) Performed for Malignant neoplasm of prostate (HCC) * CBC W AUTO DIFFERENTIAL (CANCER CARE)(Performed 09/22/2017) Performed for Malignant neoplasm of prostate (HCC) * CT CHEST W CONTRAST(Performed 09/18/2017) Performed for Prostate CA (HCC) * MRI PELVIS WWO CONTRAST(Performed 09/12/2017) Performed for Personal history of prostate cancer, Rising PSA following treatment for malignant neoplasm of prostate * CREATININE BLOOD - POINT OF CARE (IP)(Performed 09/12/2017) Performed for Rising PSA following treatment for malignant neoplasm of prostate * MRI ABDOMEN WWO CONTRAST(Performed 09/04/2017) Performed for Biliary duct stenosis (HCC) * NM BONE SCAN WHOLE BODY(Performed 09/04/2017) Performed for Personal history of prostate cancer, Elevated PSA * PSA SERIAL(Performed 08/19/2017) Performed for Malignant neoplasm of prostate (HCC) * MRI PELVIS WO CONTRAST(Performed 02/19/2017) Performed for Malignant neoplasm of prostate (HCC) * CARDIAC RHYTHM STRIP ORDER(Performed 02/13/2017) * FL RACHEAL SURGERY LESS 60 MIN(Performed 02/12/2017) Performed for Prostate cancer (HCC) * OXYGEN(Performed 02/12/2017) * PLACEMENT DEVICE/MARKER/MATERIAL PROSTATE(Performed 02/12/2017) Performed for Prostate cancer (HCC) * PT PTT PANEL(Performed 02/06/2017) 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 * CBC W AUTO DIFFERENTIAL (CANCER CARE)(Performed 02/06/2017) Performed for Malignant neoplasm of prostate (HCC) * PROSTATE SPECIFIC ANTIGEN SCREEN(Performed 02/06/2017) Performed for Encounter for screening for malignant neoplasm of prostate , Malignant neoplasm of prostate (HCC) * BASIC METABOLIC PANEL (CALCIUM TOTAL)(Performed 02/06/2017) Performed for Malignant neoplasm of prostate (HCC) * LAB RESULTS ORDER(Performed 11/25/2016) * IMAGING/RADIOLOGY/XRAY RESULTS ORDER(Performed 11/19/2016) * PATHOLOGY/CYTOLOGY REPORT ORDER(Performed 11/07/2016) * DERMATOPATHOLOGY(Performed 12/02/2013) * DERMATOPATHOLOGY(Performed 12/02/2013) * PATHOLOGY/CYTOLOGY REPORT ORDER(Performed 12/21/2009) Results * (ABNORMAL) CBC W AUTO DIFFERENTIAL (CANCER CARE) (10/28/2024 11:45 AM DIRECTOR PLANS) Only the most recent of80 resultswithin the time period is included. WBC 4.9 4.4 - 10.7 x10E9/L 10/28/2024 11:54 AM DIRECTOR PLANS [facility] Neutrophils % 67.7 44.0 - 73.0 % 10/28/2024 11:54 AM DIRECTOR PLANS [facility] Lymphocytes % 18.4(L) 20.0 - 43.0 % 10/28/2024 11:54 AM DIRECTOR PLANS [facility] Monocytes % 8.2 5.0 - 13.0 % 10/28/2024 11:54 AM DIRECTOR PLANS [facility] Eosinophils % 4.9 0.0 - 6.0 % 10/28/2024 11:54 AM DIRECTOR PLANS [facility] Basophils % 0.4 0.0 - 2.0 % 10/28/2024 11:54 AM DIRECTOR PLANS [facility] Immature Granulocytes 0.4 <=1 % 10/28/2024 11:54 AM [facility] Neutrophil Absolute 3.28 2.01 - 7.14 x10E9/L 10/28/2024 11:54 AM [facility] Lymphocytes Absolute 0.89(L) 1.07 - 3.94 x10E9/L 10/28/2024 11:54 AM [facility] Monocytes Absolute 0.40 0.26 - 1.07 x10E9/L 10/28/2024 11:54 AM [facility] Eosinophils Absolute 0.24 0 - 0.47 x10E9/L 10/28/2024 11:54 AM [facility] Basophils Absolute 0.02 0 - 0.08 x10E9/L 10/28/2024 11:54 AM [facility] RBC 4.13 3.80 - 5.40 x10E12/L 10/28/2024 11:54 AM [facility] Hemoglobin 12.3 12.0 - 17.6 gm/dL 10/28/2024 11:54 AM [facility] Hematocrit 37.8 35.2 - 51.7 % 10/28/2024 11:54 AM [facility] MCV 91.5 80.7 - 98.3 fl 10/28/2024 11:54 AM [facility] MCH 29.8 26.7 - 34.0 pg 10/28/2024 11:54 AM [facility] MCHC 32.5 30.8 - 35.9 gm/dL 10/28/2024 11:54 AM [facility] RDW-CV 13.6 12.1 - 14.9 % 10/28/2024 11:54 AM [facility] Platelet Count 163 153 - 416 x10E9/L 10/28/2024 11:54 AM [facility] MPV 9.5 9.4 - 12.9 fl 10/28/2024 11:54 AM [facility] NRBC 0.0 <=0 /100 WBC 10/28/2024 11:54 AM [facility] Blood BLOOD SPECIMEN / Unknown 10/28/2024 11:45 AM DIRECTOR PLANS 10/28/2024 11:45 AM DIRECTOR PLANS Daysi Osorio MD LAB - HEMATOL OGY ORDERABLES [facility] [address], [address] [place] [address] * (ABNORMAL) PSA SERIAL (10/28/2024 11:45 AM DIRECTOR PLANS) Only the most recent of75 resultswithin the time period is included. PSA 6.9(H) 0.0 - 4.0 ng/mL [facility] INSURANCE BILL Comment: Yariel ECLIA methodology. According to the [employer] [employer], Serum PSA should decrease and [...] BLOOD SPECIMEN / Unknown 10/28/2024 11:45 AM DIRECTOR PLANS 10/28/2024 Comment:Blood Release to the medical center Narrative [facility] INSURANCE BILL - 10/29/2024 6:09 PM DIRECTOR PLANS Performed at: [address] [id number] [employer] Edger: Arun Rice PhD, Phone: [phone] Daysi Osorio MD LAB - VESSEL WELDER RY ORDERABLES [facility] INSURANCE BILL [address] [place] [address] * (ABNORMAL) COMPREHENSIVE METABOLIC PANEL (10/28/2024 11:45 AM DIRECTOR PLANS) Only the most recent of81 resultswithin the time period is included. Glucose [...] BLOOD SPECIMEN / Unknown 10/28/2024 11:45 AM DIRECTOR PLANS 10/28/2024 Comment:Blood Release to the medical center Narrative [facility] INSURANCE BILL - 10/28/2024 7:08 PM DIRECTOR PLANS Performed at: [address] [id number] [employer]ger: Dolores Henley MD, Phone: [phone] Daysi Osorio MD LAB - VESSEL WELDER RY ORDERABLES [facility] INSURANCE BILL [address] [place] [address] * VITAMIN B12 (10/28/2024 11:45 AM DIRECTOR PLANS) Only the most recent of18 resultswithin the time period is included. Vitamin B12 727 213 - 816 pg/mL [facility] INSURANCE BILL Blood BLOOD SPECIMEN / Unknown 10/28/2024 11:45 AM DIRECTOR PLANS 10/28/2024 Comment:Blood Release to pat i Narrative [facility] INSURANCE BILL - 10/28/2024 7:08 PM DIRECTOR PLANS Performed at: [address] [id number] Diamond Wheel Edger: Dolores Henley MD, Phone: [phone] Daysi Osorio MD LAB - VESSEL WELDER RY ORDERABLES [facility] INSURANCE BILL [address] [address] * PET CT F18 Psma Skull Mid Thigh (09/24/2024 12:57 PM DIRECTOR PLANS) Only the most recent of5 resultswithin the time period is included. Anatomical Region Laterality Modality Positron Emissio n Tomography (PET) 09/24/2024 1:37 PM DIRECTOR PLANS Impressions 09/24/2024 1:56 PM DIRECTOR PLANS IMPRESSION: 1.Heterogeneous radiotracer activity within the prostate [...] 09/24/2024 1:56 PM Narrative 09/24/2024 1:56 PM DIRECTOR PLANS PROCEDURE(s): PET CT F18 PSMA SKULL MID THIGH DATE AND TIME OF EXAM(s): 09/24/2024 12:57 PM INDICATION(s): C61: Malignant neoplasm of prostate (HCC). Z79.899: Other halfway (current) drug therapy. Increasing PSA. COMPARISON(s): PET/CT [...] Malignant neoplasm of prostate (HCC). Z79.899: Other halfway (current) drug therapy. Increasing PSA. COMPARISON(s): PET/CT [...] Leonela Duenas MD on 09/24/2024 1:56 PM Ronnaraphael Darbyelmo SUPERINTENDENT TERMINAL-PARQUETRY LAYER NM ORDERABLE S * TEMPUS XF (01/08/2024 9:02 AM CDT) Pathology/Cytolo gy MISCELLANEOUS SAMPLES / Unknown 01/08/2024 9:02 AM CDT 01/08/2024 9:02 AM CDT Daysi Osorio MD LAB - PATHOLO GY/CYTOLOGY ORDERABLES Performing Organization Address City/[facility]/ZIP Co de Phone Number [facility] ([facility]) [address], [address] [place] [address] * TEMPUS BLOOD DRAW (01/07/2024 11:55 AM CDT) Blood Sent to [facility] 01/07/2024 1:00 PM CDT [facility] Comment:Collection and sendo ut completed. Blood BLOOD SPECIMEN / Unknown 01/07/2024 11:55 AM CDT 01/07/2024 11:55 AM CDT Daysi Osorio MD LAB - HEMATOL OGY ORDERABLES Performing Organization Address City/[facility]/ZIP Co de Phone Number [facility] ([facility]) [address], [address] [place] [address] * PAIN MANAGEMENT PROCEDURE TIME (02/13/2023 11:29 AM CDT) Anatomical Region Laterality Modality X-Ray Angiograph y Narrative 02/13/2023 10:02 PM CDT Norm Bridges MD 02/13/2023 10:03 PM Bilateral L4-5,L5-S1 Facet Joint Injection Fidelia Perez [id number] 02/13/2023 No Known Allergies Procedure: Bilateral L4-5,L5-R9Anwrm Joint Injection Under Fluoroscopy Indication for Procedure: Back pain/Facet Joint DJD/Facet Joint Syndrome. M47.816, M47.817, M54.5 Informed Consent: After the patient, Fidelia Perez, was informed of the risks and benefits of the procedure and all questions were answered, the consent was signed. Prep:Patient identified, proper procedure and site verified, marked by Dr. Blackwell. In the oblique/ prone position, Bilateral L4-5, L5-S1 facet joint were identified under fluoroscopy and marked on the patient's skin. The skin was prepped in a routine sterile fashion using chloroprep. 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 Under pulsed fluoroscopy, a 25 gauge, 3 1/2 inch spinal needle was slowly inserted towards the Left L4-5 Facet joint after 1 % lidocaine MPF was used to anesthetize the skin , subcutaneous tissue and the muscle overlying the area. Once the tip of the needle was in proper position, 0.5 ml of Kenalog 40 mg per ml and 1.0 ml of 1 % lidocaine was injected in a slow, incremental fashion after aspiration revealed no blood or CSF return. The needle was removed, the skin was cleaned, and ensured no bleeding was noted. Under pulsed fluoroscopy, a 25 gauge, 3 1/2 inch spinal needle was slowly inserted towards the Left L5- S1 Facet joint after 1 % lidocaine MPF was used to anesthetize the skin , subcutaneous tissue and the muscle overlying the area. Once the tip of the needle was in proper position, 0.5 ml of Kenalog 40 mg per ml and 1.0 ml of 1 % lidocaine was injected in a slow, incremental fashion after aspiration revealed no blood or CSF return. The needle was removed, the skin was cleaned, and ensured no bleeding was noted. Under pulsed fluoroscopy, a 25 gauge, 3 1/2 inch spinal needle was slowly inserted towards the Right L4-5 Facet joint after 1 % lidocaine MPF was used to anesthetize the skin , subcutaneous tissue and the muscle overlying the area. Once the tip of the needle was in proper position, 0.5 ml of Kenalog 40 mg per ml and 1.0 ml of 1 % lidocaine was injected in a slow, incremental fashion after aspiration revealed no blood or CSF return. The needle was removed, the skin was cleaned, and ensured no bleeding was noted. Under pulsed fluoroscopy, a 25 gauge, 3 1/2 inch spinal needle was slowly inserted towards the Right L5-S1 Facet joint after 1 % lidocaine MPF was used to anesthetize the skin , subcutaneous tissue and the muscle overlying the area. Once the tip of the needle was in proper position, 0.5 ml of Kenalog 40 mg per ml and 1.0 ml of 1 % lidocaine was injected in a slow, incremental fashion after aspiration revealed no blood or CSF return. The needle was removed, the skin was cleaned, and ensured no bleeding was noted. Total Lidocaine : 4.0ml Total Kenalog : 80mg, 20mg per level The patient tolerated the procedure well without complications. The patient was taken to the recovery area and remained stable without complications. Vital signs stable. Injection site clean, dry, and intact. Post procedure instructions were given to the patient and follow up appointment was confirmed. The patient was discharged with information on how to reach the clinic at any time for questions or concerns. Patient ambulatory, denies complaints, DC to home. Patient survey given. Procedure codes: 35663/61840 Pre VAS:05/18 Post VAS:09/17 Norm Bridges MD Norm Bridges MD DIAGNOSTIC IMAGING O RDERABLES * IR KYPHOPLASTY (12/12/2022 2:07 PM CDT) Anatomical Region Laterality Modality Spine X-Ray Angiograph y 12/12/2022 2:40 PM CDT Impressions 12/12/2022 2:43 PM CDT Impression: Successful percutaneous balloon kyphoplasty at L1, performed in the radiology department by Dr. Puente as described in detail above. 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 Pathologic fracture secondary to prostate carcinoma Correlation plain film October 22, 2022 This procedure was performed in the radiology department by Dr. Puente. After explanation of the procedure to the patient and routine Betadine and lidocaine skin prep, large bore trocar needle was placed into the vertebral body under fluoroscopic control. Bilateral transpedicular oblique approaches were used with the patient in prone position. Bone biopsy performed through the right transpedicular approach. Specimen placed in a sterile, for presentation to pathology. A drill device was then advanced through the needle at each level to create a small cavity within the vertebral body. After this, a balloon device was advanced into the vertebral body and balloon inflation was performed at each level. Filling of cement from superior to inferior as well as pedicle to pedicle After this, 10 cc of radiopaque cement were injected. Spot films were obtained. The patient tolerated the procedure well and there were no apparent immediate complications. Procedure performed with sedation by department of anesthesiology. Total fluoro time is 2.7. Procedure Note Milton Puente MD - 12/12/2022 Examination: Percutaneous Fluoroscopically-guided balloon kyphoplasty Supervision of moderate conscious sedation Indication for examination: Pathologic osteoporotic compression fractureL1 vertebral body with severe back pain. Pathologic fracture secondary to prostate carcinoma Correlation plain film October 22, 2022 This procedure was performed in the radiology department by . After explanation of the procedure to the patient and routine Betadineand lidocaine skin prep, large bore trocar needle was placed into thevertebral body under fluoroscopic control. Bilateral transpedicular oblique approaches were used with the patient in prone position. Bone biopsy performed through the right transpedicular approach. Specimen placed precious sterile, for presentation to pathology. A drill device was then advanced through the needle at each level tocreate a small cavity within the vertebral body. After this, a balloon devicewas advanced into the vertebral body and balloon inflation was performed at each level. Filling of cement from superior to inferior as well aspedicle to pedicle After this, 10 cc of radiopaque cement were injected. Spot films were obtained. The patient tolerated the procedure well and there were no apparent immediate complications. Procedure performed with sedation by department of anesthesiology. Total fluoro time is 2.7. Impression: Successful percutaneous balloon kyphoplasty at L1, performed in the radiology department by Dr. Puente as described in detail above. > Interpreting Provider: Milton Puente MD on 12/12/2022 2:43 PM Dalila ALVAREZ IR ORDERABLES * PATHOLOGY TISSUE EXAM (STL) (12/12/2022 1:40 PM CDT) Case Report Surgical Pathology Report Case: [id number] Authorizing Provider: Milton Puente MD Collected: 12/12/2022 01:40 PM Ordering Location: [facility] Intervention Rad Received: 12/12/2022 02:16 PM Pathologist: Sarai Snider MD Specimen: Bone Biopsy 12/17/2022 3:50 PM CDT [facility] Final Diagnosis L1 bone, biopsy: -- Hemosiderin macrophages -- Negative for metastatic carcinoma 12/17/2022 3:50 PM CDT [facility] Clinical History History of metastatic prostate cancer, compression fracture of lumbar 1 12/17/2022 3:50 PM CDT [facility] Gross Description The specimen is received fresh in a container labeled with the patient's name, Sporrer, Fidelia, and bone biopsy and consists of a bone core (0.7 cm in length by 0.2 cm in diameter). Entirely submitted in cassette A1 after decalcification and EDTA. AMA/lk 12/17/2022 3:50 PM CDT [facility] Microscopic Description Sections of the lumbar 1 bone biopsy reveal a core biopsy of bone. The bone marrow shows hemosiderin macrophages. There is no evidence of metastatic carcinoma. An iron stain highlights the hemosiderin macrophages. Cam 5.2 and NK X 3.1 immunostains are negative. 12/17/2022 3:50 PM CDT [facility] Disclaimer All histochemical and/or immunohistochemical results are interpreted with controls that demonstrate appropriate staining reactions before reporting results. Note on use of immunocytochemistry reagents: This test was developed and its performance characteristic determined by [facility], Department of Laboratory Medicine. It has not been cleared or approved by the U.S. Food and Drug Administration (FDA). The FDA has determined that such clearance or approval is not necessary. The test is used for clinical purpose. It should not be regarded as investigational or for research. This laboratory is certified to perform high complexity testing. The performance characteristics of the IHC/FLACO assays have been validated on formalin-fixed paraffin embedded tissues only. The assays have not been validated on decalcified tissues. Results should be interpreted with caution. 12/17/2022 3:50 PM CDT [facility] Embedded Images 12/17/2022 3:50 PM CDT [facility] Pathology/Cytolo gy BONE BIOPSY SPECIMEN / Unknown Collection / Unknown 12/12/2022 1:40 PM CDT 12/12/2022 2:16 PM CDT Comment:L1 Milton Puente MD LAB - PATHOLOGY/CYTO LOGY ORDERABLES [facility] [address] [place] [address] * (ABNORMAL) CBC W AUTO DIFFERENTIAL (12/12/2022 11:56 AM CDT) Only the most recent of2 resultswithin the time period is included. WBC 5.5 4.4 - 10.7 x10E9/L 12/12/2022 12:01 PM CDT [facility] WBC Corrected 12/12/2022 12:01 PM CDT [facility] RBC 4.37 3.80 - 5.40 x10E12/L 12/12/2022 12:01 PM CDT [facility] Hemoglobin 12.6 12.0 - 17.6 gm/dL 12/12/2022 12:01 PM CDT [facility] Hematocrit 38.8 35.2 - 51.7 % 12/12/2022 12:01 PM CDT [facility] MCV 88.8 80.7 - 98.3 fl 12/12/2022 12:01 PM CDT [facility] MCH 28.8 26.7 - 34.0 pg 12/12/2022 12:01 PM CDT [facility] MCHC 32.5 30.8 - 35.9 gm/dL 12/12/2022 12:01 PM CDT [facility] Platelet Count 142(L) 153 - 416 x10E9/L 12/12/2022 12:01 PM CDT [facility] RDW-CV 13.4 12.1 - 14.9 % 12/12/2022 12:01 PM CDT [facility] MPV 10.1 9.4 - 12.9 fl 12/12/2022 12:01 PM CDT [facility] Neutrophils % 72.6 44.0 - 73.0 % 12/12/2022 12:01 PM CDT [facility] Lymphocytes % 15.5(L) 20.0 - 43.0 % 12/12/2022 12:01 PM CDT [facility] Monocytes % 8.9 5.0 - 13.0 % 12/12/2022 12:01 PM CDT [facility] Eosinophils % 2.4 0.0 - 6.0 % 12/12/2022 12:01 PM CDT [facility] Basophils % 0.2 0.0 - 2.0 % 12/12/2022 12:01 PM CDT [facility] Immature Granulocytes 0.4 0 - 1 % 12/12/2022 12:01 PM CDT [facility] Neutrophil Absolute 3.98 2.01 - 7.14 x10E9/L 12/12/2022 12:01 PM CDT [facility] Lymphocytes Absolute 0.85(L) 1.07 - 3.94 x10E9/L 12/12/2022 12:01 PM CDT [facility] Monocytes Absolute 0.49 0.26 - 1.07 x10E9/L 12/12/2022 12:01 PM CDT [facility] Eosinophils Absolute 0.13 0 - 0.47 x10E9/L 12/12/2022 12:01 PM CDT [facility] Basophils Absolute 0.01 0 - 0.08 x10E9/L 12/12/2022 12:01 PM CDT [facility] Immature Granulocytes Absolute 0.02 0.00 - 0.06 x10E9/L 12/12/2022 12:01 PM CDT [facility] nRBC Auto 0 /100 WBC 12/12/2022 12:01 PM CDT [facility] Blood BLOOD SPECIMEN / Unknown Venipuncture / Unknown 12/12/2022 11:56 AM CDT 12/12/2022 11:57 AM CDT Milton Puente MD LAB - HEMATOLOGY ORD ERABLES [facility] [address] [place] [address] * MRI LUMBAR SPINE WO CONTRAST (11/25/2022 12:55 PM CDT) Anatomical Region Laterality Modality Spine Magnetic Resonan ce 11/25/2022 1:01 PM CDT Addenda Addendum by Milton Puente MD on 12/12/2022 8:16 AM CDT Patient presenting for kyphoplasty. We will perform the L1 kyphoplasty as well as performed on biopsy if I am the physician performing the procedure. > Interpreting Provider: Milton Puente MD on 12/12/2022 8:14 AM Impressions 11/25/2022 1:11 PM CDT IMPRESSION: L1 compression fracture highly likely pathologic.. I do not know if this is related to prostate metastasis or radiation. Given history of a thoracic metastasis March 15, 2022 findings most consistent with an interval L1 lumbar metastatic deposit with pathologic fracture. > Interpreting Provider: Milton Puente MD on 11/25/2022 1:11 PM Narrative 11/25/2022 1:11 PM CDT MRI Lumbar Spine Without Contrast INDICATION: Low back pain, fall TECHNIQUE: Multisequence, multiplanar MRI sequences of the lumbar spine without contrast FINDINGS: Comparison October 22, 2022. Patient had a PET/CT scan May 31, 2022. In addition, there is MRI thoracic spine March 15, 2022. Spinal cord terminates the L1 level. There is decreased marrow signal intensity in L1. This has a slightly cystic appearance. Fluid within the superior endplate of L1. Marrow edema does extend back into the right L1 pedicle. No adjacent retroperitoneal adenopathy. Vacuum disc phenomena L2-3 L3-4 L4-5 and L5-S1. The L1 compression fracture is interval from May 31, 2022. T11-12: Degenerative fusion. T12-L1: Vacuum disc phenomena. L1: Height loss with superior endplate fluid consistent with the fracture. However, strong suspicion this is a pathologic fracture given the geographic finding of marrow replacement as well as lack of marrow replacement on sagittal image 7 series 201. Findings consistent with this being a pathologic compression fracture. L1-2: Facet hypertrophy. No central or foraminal stenosis. L2-3: Retrolisthesis spur complex. Central canal stenosis is mild. The L3 lateral recess narrowing is minimal on the right. The L2 foramen shows minimal foraminal narrowing bilaterally. L3-4: Spur retrolisthesis complex of L3 upon L4 measures 3.4 mm. Ligament of flava thickening bilaterally. Overall central canal stenosis is moderate.. The left L3 foraminal stenosis is mild. The right is mild. L4-5: Disc space height loss. Disc spur complexes and both L4 foramen. Upper end of mild left mild right L4 foraminal narrowing. No L5 lateral recess root compression. L5-S1: Facet joint degenerative change. No S1 root compression. Disc spur complexes into both L5 foramen left greater than right. Mild to moderate left mild right L5 foraminal stenosis. Minimal right S1 lateral recess narrowing secondary to asymmetric disc spur complex. No midline upper sacrum marrow edema. Procedure Note Milton Puente MD - 11/25/2022 MRI Lumbar Spine Without Contrast INDICATION: Low back pain, fall TECHNIQUE: Multisequence, multiplanar MRI sequences of the lumbar spine without contrast FINDINGS: Comparison October 22, 2022. Patient had a PET/CT scan May 31, 2022. In addition, there is MRI thoracic spine March 15, 2022. Spinal cord terminates the L1 level. There is decreased marrow signal intensity in L1. This has a slightly cystic appearance. Fluid within the superior endplate of L1. Marrow edema does extend back into the right L1 pedicle. No adjacent retroperitoneal adenopathy. Vacuum disc phenomenaL2-3 L3-4 L4-5 and L5-S1. The L1 compression fracture is interval fromSeptember 2021. T11-12: Degenerative fusion. T12-L1: Vacuum disc phenomena. L1: Height loss with superior endplate fluid consistent with thefracture. However, strong suspicion this is a pathologic fracture given the geographic finding of marrow replacement as well as lack of marrow replacement on sagittal image 7 series 201. Findings consistent withthis being a pathologic compression fracture. L1-2: Facet hypertrophy. No central or foraminal stenosis. L2-3: Retrolisthesis spur complex. Central canal stenosis is mild. TheL3 lateral recess narrowing is minimal on the right. The L2 foramen shows minimal foraminal narrowing bilaterally. L3-4: Spur retrolisthesis complex of L3 upon L4 measures 3.4 mm.Ligament of flava thickening bilaterally. Overall central canal stenosis is moderate.. The left L3 foraminal stenosis is mild. The right is mild. L4-5: Disc space height loss. Disc spur complexes and both L4 foramen. Upper end of mild left mild right L4 foraminal narrowing. No L5 lateral recess root compression. L5-S1: Facet joint degenerative change. No S1 root compression. Discspur complexes into both L5 foramen left greater than right. Mild to moderate left mild right L5 foraminal stenosis. Minimal right S1 lateral recess narrowing secondary to asymmetric disc spur complex. No midline upper sacrum marrow edema. IMPRESSION: L1 compression fracture highly likely pathologic.. I do not know if thisis related to prostate metastasis or radiation. Given history of a thoracic metastasis March 15, 2022 findings most consistent with an interval N0pncaxc metastatic deposit with pathologic fracture. > Interpreting Provider: Milton Puente MD on 11/25/2022 1:11 PM Dalila ALVAREZ MR ORDERABLES * XR HIP RIGHT 2VW OR MORE (10/22/2022 11:58 AM DIRECTOR PLANS) Anatomical Region Laterality Modality Pelvis, Lower Extremity Computed Radiography Narrative 10/22/2022 11:59 AM DIRECTOR PLANS Dolores Shukla, RT(R) 11/06/2022 9:53 AM See progress notes for results Dalila ALVAREZ DIAGNOSTIC IMAGING O RDERABLES * MRI THORACIC SPINE WWO CONT (03/15/2022 6:59 PM CDT) Anatomical Region Laterality Modality Spine Magnetic Resonan ce 03/18/2022 2:11 PM CDT Impressions 03/18/2022 2:28 PM CDT 1. There are sclerotic metastases again noted at T9 as well as an additional lesion at T7. No pathologic compression fracture. 2. Moderate thoracic disc degeneration with DISH. No large disc herniation, significant spinal canal stenosis or cord compression. 3. 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 *Reading Radiologist: Sebas Guardado on 03/18/2022 at 2:28 PM Narrative 03/18/2022 2:28 PM CDT MRI of the thoracic spine with and without contrast. TECHNIQUE: Multiplanar, multiple sequence imaging the thoracic spine was obtained with and without contrast. [20 cc of Dotarem was administered] COMPARISON: PET CT 02/08/2022. Chest CT 05/08/2021. FINDINGS: There is approximately 15 degrees thoracic dextroscoliosis. Sagittal alignment is maintained. There is no subluxation noted. There is a sclerotic lesion within the posterior aspect of the T9 vertebral body measuring 2.7 x 1.9 x 2.0 cm. This corresponds with sclerotic lesion on previous CT and hypermetabolic lesion on previous pets keeping with known osteoblastic metastasis. There is a second sclerotic lesion within the right lateral aspect of the T7 vertebral body measuring 2.0 x 1.4 x 10 mm. This may represent an additional osteoblastic metastasis however was not hypermetabolic on the recent PET/CT. There is no pathologic compression fracture noted. Moderate thoracic disc degeneration is observed in the setting of diffuse idiopathic skeletal hyperostosis (DISH). Individual levels: At the T3-4 level there is a tiny central protrusion but no spinal canal stenosis or spinal cord compression. No significant foraminal narrowing. At the T8-9 level there is a mild annular bulge but no spinal canal stenosis or cord compression. No foraminal narrowing. At the T9-10 level there is an annular bulge with facet arthropathy and ligamentous thickening but no spinal canal stenosis or cord compression. The right foramen is mildly narrowed. The cord is neither expanded or atrophic. There is however longitudinally oriented, intermittently visualized T2/FLAIR hyperintensity noted within the mid to lower thoracic spine (T4-T10. This is most robust at the T5-6 level measuring under 2 mm in transverse diameter. This is hypointense on T1 without enhancement. Findings probably represent a very small syrinx or alternatively, a persistent central canal which is an anatomic variation. No intradural extramedullary lesion is noted. There are no enlarged perimedullary flow voids. No compressive epidural fluid collection or mass. The paravertebral soft tissues are unremarkable. Procedure Note Sebas Guardado DO - 03/18/2022 MRI of the thoracic spine with and without contrast. TECHNIQUE: Multiplanar, multiple sequence imaging the thoracic spine was obtained with and without contrast. [20 cc of Dotarem was administered] COMPARISON: PET CT 02/08/2022. Chest CT 05/08/2021. FINDINGS: There is approximately 15 degrees thoracic dextroscoliosis. Sagittal alignment is maintained. There is no subluxation noted. There is a sclerotic lesion within the posterior aspect of the T9 vertebral body measuring 2.7 x 1.9 x 2.0 cm. This corresponds with sclerotic lesion on previous CT and hypermetabolic lesion on previous pets keeping with known osteoblastic metastasis. There is a second sclerotic lesion within the right lateral aspect of the T7 vertebral body measuring 2.0 x 1.4 x 10 mm. This may represent an additional osteoblastic metastasis however was not hypermetabolic on the recent PET/CT. There is no pathologic compression fracture noted. Moderate thoracic disc degeneration is observed in the setting of diffuse idiopathic skeletal hyperostosis (DISH). Individual levels: At the T3-4 level there is a tiny central protrusion but no spinal canal stenosis or spinal cord compression. No significant foraminal narrowing. At the T8-9 level there is a mild annular bulge but no spinal canal stenosis or cord compression. No foraminal narrowing. At the T9-10 level there is an annular bulge with facet arthropathy and ligamentous thickening but no spinal canal stenosis or cord compression. The right foramen is mildly narrowed. The cord is neither expanded or atrophic. There is however longitudinally oriented, intermittently visualized T2/FLAIR hyperintensity noted within the mid to lower thoracic spine (T4-T10. This is most robust at the T5-6 level measuring under 2 mm in transverse diameter. This is hypointense on T1 without enhancement. Findings probably represent a very small syrinx or alternatively, a persistent central canal which is an anatomic variation. No intradural extramedullary lesion is noted. There are no enlarged perimedullary flow voids. No compressive epidural fluid collection or mass. The paravertebral soft tissues are unremarkable. IMPRESSION 1. There are sclerotic metastases again noted at T9 as well as an additional lesion at T7. No pathologic compression fracture. 2. Moderate thoracic disc degeneration with DISH. No large disc herniation, significant spinal canal stenosis or cord compression. 3. 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 *Reading Radiologist: Sebas Guardado on 03/18/2022 at 2:28 PM Diaz Gamez MD MR ORDERABLES * CT THORAX ABDOMEN PELVIS W CONT (05/08/2021 2:51 PM CDT) Only the most recent of2 resultswithin the time period is included. Anatomical Region Laterality Modality Chest, Abdomen, Pelvis Computed Tomography 05/08/2021 2:55 PM CDT Narrative 05/08/2021 3:09 PM CDT Examination: CT chest with contrast. Indication for examination: Metastatic prostate carcinoma. Restaging. Contrast-enhanced CT examination of the chest is performed with 2 mm helical technique with sagittal and coronal reconstructions. 80 mL Isovue 370 contrast were used. Comparison is made with a prior study of October 28, 2018.. Examination of the lung parenchyma redemonstrates the presence of small benign-appearing nodular densities bilaterally, unchanged. No suspicious lung nodule or lung mass is identified. There is no acute appearing parenchymal infiltrate. There is no pleural or pericardial effusion. There are no abnormally enlarged hilar or mediastinal lymph nodes. Examination the bony structures reveals a healed or healing fracture anterior margin right fifth rib correlating with uptake on radionuclide bone scan. There is redemonstration of sclerotic metastatic lesions at T7 and T9, present previously and no new bone destruction identified. CONCLUSION: No lung nodule or lung mass identified. No adenopathy or effusion. 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 No new suspicious bone destruction. Healing fracture anterior aspect right fifth rib, correlating with uptake on bone scan. No other focal findings. Examination: CT abdomen and pelvis with contrast. Indication for examination: Metastatic prostate carcinoma. Restaging. CT examination of the abdomen and pelvis is performed with intravenous and oral contrast with sagittal and coronal reconstructions. 80 mL Isovue 370 contrast were used. Comparison is made with October 28, 2018. CT abdomen: CT examination of the abdomen shows that the liver and spleen are normal in size. No focal mass identified. Portal and hepatic veins are patent. Gallbladder is grossly normal in size. Bile ducts are not dilated. There is redemonstration of innumerable calcifications within the pancreas with pancreatic parenchymal atrophy and dilatation of the proximal pancreatic duct. Findings are most likely chronic inflammatory in etiology, grossly unchanged. There are no abnormally enlarged peripancreatic, periportal or retroperitoneal lymph nodes. No urinary obstruction. There is redemonstration of bilateral renal cyst formation, present previously. Adrenal glands are symmetric. There is no mechanical bowel obstruction or perforation. No ascites or loculated peritoneal fluid. No gross mesenteric adenopathy or mass. CT PELVIS: CT examination of pelvis redemonstrates sigmoid diverticulosis without evidence of acute diverticulitis or acute colitis. Prostate gland is unchanged in appearance. There are no abnormally enlarged or suspicious appearing inguinal or intrapelvic lymph nodes. No free fluid. Examination the bony structures reveals degenerative change lumbar spine without suspicious appearing lytic or blastic bone destruction. CONCLUSION: No suspicious abdominal or pelvic mass, adenopathy or fluid collection. Chronic calcific pancreatitis. No acute inflammatory change. No change from October 28, 2018. *Reading Radiologist: Samy Esteves on 05/08/2021 at 3:09 PM Procedure Note Samy Esteves MD - 05/08/2021 Examination: CT chest with contrast. Indication for examination: Metastatic prostate carcinoma. Restaging. Contrast-enhanced CT examination of the chest is performed with 2 mm helical technique with sagittal and coronal reconstructions. 80 mL Isovue 370 contrast were used. Comparison is made with a prior study of October 28, 2018.. Examination of the lung parenchyma redemonstrates the presence of small benign-appearing nodular densities bilaterally, unchanged. No suspicious lung nodule or lung mass is identified. There is no acute appearing parenchymal infiltrate. There is no pleural or pericardial effusion. There are no abnormally enlarged hilar or mediastinal lymph nodes. Examination the bony structures reveals a healed or healing fracture anterior margin right fifth rib correlating with uptake on radionuclide bone scan. There is redemonstration of sclerotic metastatic lesions at T7 and T9, present previously and no new bone destruction identified. CONCLUSION: No lung nodule or lung mass identified. No adenopathy or effusion. 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 No new suspicious bone destruction. Healing fracture anterior aspect right fifth rib, correlating with uptake on bone scan. No other focal findings. Examination: CT abdomen and pelvis with contrast. Indication for examination: Metastatic prostate carcinoma. Restaging. CT examination of the abdomen and pelvis is performed with intravenous and oral contrast with sagittal and coronal reconstructions. 80 mL Isovue 370 contrast were used. Comparison is made with October 28, 2018. CT abdomen: CT examination of the abdomen shows that the liver and spleen are normal in size. No focal mass identified. Portal and hepatic veins are patent. Gallbladder is grossly normal in size. Bile ducts are not dilated. There is redemonstration of innumerable calcifications within the pancreas with pancreatic parenchymal atrophy and dilatation of the proximal pancreatic duct. Findings are most likely chronic inflammatory in etiology, grossly unchanged. There are no abnormally enlarged peripancreatic, periportal or retroperitoneal lymph nodes. No urinary obstruction. There is redemonstration of bilateral renal cyst formation, present previously. Adrenal glands are symmetric. There is no mechanical bowel obstruction or perforation. No ascites or loculated peritoneal fluid. No gross mesenteric adenopathy or mass. CT PELVIS: CT examination of pelvis redemonstrates sigmoid diverticulosis without evidence of acute diverticulitis or acute colitis. Prostate gland is unchanged in appearance. There are no abnormally enlarged or suspicious appearing inguinal or intrapelvic lymph nodes. No free fluid. Examination the bony structures reveals degenerative change lumbar spine without suspicious appearing lytic or blastic bone destruction. CONCLUSION: No suspicious abdominal or pelvic mass, adenopathy or fluid collection. Chronic calcific pancreatitis. No acute inflammatory change. No change from October 28, 2018. *Reading Radiologist: Samy Esteves on 05/08/2021 at 3:09 PM Daysi Osorio MD CT ORDERABLES * NM BONE SCAN WHOLE BODY (05/08/2021 2:48 PM CDT) Only the most recent of4 resultswithin the time period is included. Anatomical Region Laterality Modality Abdomen Nuclear Digisoni cs 05/08/2021 2:47 PM CDT Narrative 05/08/2021 2:51 PM CDT Examination: Radionuclide bone scan. Indication for examination: Prostate carcinoma. Mandible pain. Anterior and posterior body views of the skeleton, with spot views of the skull, are obtained following intravenous administration of 5.1 mCi Tc labeled MDP. Comparison is made with a prior radionuclide bone scan examination of October 28, 2018. There is increased activity within the left anterior mandible. Patient apparently reports pain in this area. Correlation for the possibility of a metastatic lesion, posttraumatic or inflammatory focus in the left mandible is therefore required. This could be clarified with plain film and CT examination. There is increased activity anterior aspect right fifth rib. This correlates with the presence of a healed fracture in this area identified on current chest CT. No other abnormal bone scan uptake is identified within the axial or visualized appendicular skeleton. No abnormal extraosseous uptake is observed. CONCLUSION: Increased activity left anterior mandible, new from prior studies. This may be traumatic, inflammatory or metastatic in etiology and clinical and plain film or CT correlation recommended. Increased activity anterior aspect right fifth rib, correlating with a healed fracture identified on current chest CT. No other focal findings. *Reading Radiologist: Samy Esteves on 05/08/2021 at 2:51 PM Procedure Note Samy Esteves MD - 05/08/2021 Examination: Radionuclide bone scan. Indication for examination: Prostate carcinoma. Mandible pain. Anterior and posterior body views of the skeleton, with spot views of the skull, are obtained following intravenous administration of 5.1 mCi Tc labeled MDP. Comparison is made with a prior radionuclide bone scan examination of October 28, 2018. There is increased activity within the left anterior mandible. Patient apparently reports pain in this area. Correlation for the possibility of a metastatic lesion, posttraumatic or inflammatory focus in the left mandible is therefore required. This could be clarified with plain film and CT examination. There is increased activity anterior aspect right fifth rib. This correlates with the presence of a healed fracture in this area identified on current chest CT. No other abnormal bone scan uptake is identified within the axial or visualized appendicular skeleton. No abnormal extraosseous uptake is observed. CONCLUSION: Increased activity left anterior mandible, new from prior studies. This may be traumatic, inflammatory or metastatic in etiology and clinical and plain film or CT correlation recommended. Increased activity anterior aspect right fifth rib, correlating with a healed fracture identified on current chest CT. No other focal findings. *Reading Radiologist: Samy Esteves on 05/08/2021 at 2:51 PM Daysi Osorio MD NM ORDERABLES * CREATININE - POCT INTERFACED (05/08/2021 2:35 PM CDT) Pathologist [facility] Creatinine POCT 0.73 0.70 - 1.20 mg/dL 05/08/2021 2:47 PM CDT [facility] Blood BLOOD SPECIMEN / Unknown 05/08/2021 2:35 PM CDT 05/08/2021 2:46 PM CDT Daysi Osorio MD LAB - POINT O F CARE ORDERABLES [facility] [address] [id number] * (ABNORMAL) TESTOSTERONE TOTAL (12/25/2020 11:56 AM CDT) Testosterone <3(L) 264 - 916 ng/dL [facility] INSURANCE BILL Comment: Adult male reference interval is based on a population of healthy nonobese males (BMI <30) between 19 and 39 years old. hussain Lutz.al. JCEM 2017,102;[id number]. PMID: [id number]. Effective January 15, 2021 Testosterone, Serum reference interval will be changing to: Age Male Female 0 - 30 days 0 - 650 4 - 190 1 - 5 months 0 - 650 0 - 42 6 months 0 - 36 0 - 42 7m- 1 year 0 - 36 1 - 26 2 - 5 years 0 - 36 3 - 33 6 - 8 years 0 - 36 3 - 25 9 - 10 years 0 - 21 1 - 33 11 years 1 - 161 5 - 58 12 years 2 - 521 5 - 58 13 - 15 years 28 - 656 12 - 71 16 - 17 years 150 - 785 12 - 71 18 - 19 years 150 - 785 13 - 71 20 - 30 years 264 - 916 13 - 71 31 - 40 years 264 - 916 8 - 60 41 - 60 years 264 - 916 4 - 50 61 - 80 years 264 - 916 3 - 67 >80 years 264 - 916 2 - 45 Blood BLOOD SPECIMEN / Unknown 12/25/2020 11:56 AM CDT 12/25/2020 Narrative Resulting Agency Comment Lab Testing performed at: [facility] [address] [facility] [id number] Daysi Osorio MD LAB - VESSEL WELDER RY ORDERABLES [facility] INSURANCE BILL [address] [place] [address] * VITAMIN B12 FOLATE PANEL (03/27/2020 11:59 AM CDT) Vitamin B12 279 213 - 816 pg/mL [facility] INSURANCE BILL Folate 16.9 7.0 - 31.4 ng/mL [facility] INSURANCE BILL Blood BLOOD SPECIMEN / Unknown 03/27/2020 11:59 AM CDT 03/27/2020 Narrative Resulting Agency Comment Lab Testing performed at: [address] [place] [id number] Daysi Osorio MD LAB - VESSEL WELDER RY ORDERABLES [facility] INSURANCE BILL [address] [address] * US SOFT TISSUE HEAD NECK (11/29/2019 11:22 AM CDT) Anatomical Region Laterality Modality Head Ultrasound 11/29/2019 2:23 PM CDT Narrative 11/29/2019 2:26 PM CDT Examination: Ultrasound soft tissue neck, nonvascular. HISTORY: Palpable abnormality within the left neck. History of prostate cancer. TECHNIQUE: Grayscale and color imaging over the area of palpable concern in the posterior cervical region. FINDINGS: A 1.9 x 0.9 x 1.3 cm echogenic nodule is identified in the subcutaneous tissues posterior cervical region. The appearance favors that of a lipoma. Recommend attention to this area on physical examination, and if increases consider follow-up CT. *Reading Radiologist: Samy Luo MD on 11/29/2019 at 2:26 PM Procedure Note Samy Luo MD - 11/29/2019 Examination: Ultrasound soft tissue neck, nonvascular. HISTORY: Palpable abnormality within the left neck. History of prostate cancer. TECHNIQUE: Grayscale and color imaging over the area of palpable concern in the posterior cervical region. FINDINGS: A 1.9 x 0.9 x 1.3 cm echogenic nodule is identified in the subcutaneous tissues posterior cervical region. The appearance favors that of a lipoma. Recommend attention to this area on physical examination, and if increases consider follow-up CT. *Reading Radiologist: Samy Luo MD on 11/29/2019 at 2:26 PM Iris Orellana APRN-DANIE US ORDERABLES * XR SHOULDER LEFT 2VW OR MORE (11/22/2019 1:16 PM CDT) Anatomical Region Laterality Modality Upper Extremity Radiographic Simona ging 11/22/2019 1:34 PM CDT Impressions 11/22/2019 1:35 PM CDT Degenerative change. *Reading Radiologist: Nova Perry MD on 11/22/2019 at 1:35 PM Narrative 11/22/2019 1:35 PM CDT Left shoulder 2 views unilateral INDICATION: Left shoulder pain and injury 2 views of the left shoulder are provided. There is no fracture. There is advanced degenerative change of acromioclavicular joint. Corticated loose body is noted adjacent to the humeral head. Procedure Note Nova Perry MD - 11/22/2019 Left shoulder 2 views unilateral INDICATION: Left shoulder pain and injury 2 views of the left shoulder are provided. There is no fracture. There is advanced degenerative change of acromioclavicular joint. Corticated loose body is noted adjacent to the humeral head. IMPRESSION Degenerative change. *Reading Radiologist: Nova Perry MD on 11/22/2019 at 1:35 PM Iris Orellana SUPERINTENDENT TERMINAL-PARQUETRY LAYER DIAGNOSTIC IMAGING ORDERABLES * VITAMIN D 25-HYDROXY (09/27/2019 11:25 AM DIRECTOR PLANS) Vitamin D, 25 Hydroxy 35.1 30 - 100 ng/mL [facility] INSURANCE BILL Comment: Vitamin D Status: Deficiency <20 ng/mL Insufficiency 20-30 ng/mL Sufficiency 30-100 ng/mL Toxicity >100 ng/mL Blood BLOOD SPECIMEN / Unknown 09/27/2019 11:25 AM DIRECTOR PLANS 09/27/2019 Narrative Resulting Agency Comment Lab Testing performed at: [facility] [address] [facility] [phone] Daysi Osorio MD LAB - VESSEL WELDER RY ORDERABLES [facility] INSURANCE BILL [address] [place] [address] * XR CHEST 2VW (05/20/2019 11:23 AM CDT) Anatomical Region Laterality Modality Chest Radiographic Simona ging 05/20/2019 11:2 9 AM CDT Impressions 05/20/2019 11:30 AM CDT No acute pulmonary disease Reading Radiologist: Steve Viveros MD on 05/20/2019 at 11:30 AM Narrative 05/20/2019 11:30 AM T Chest 2 views INDICATION: Shortness of breath and pneumonia FINDINGS: 2 views of the chest without prior shows no consolidation, pleural effusion or pneumothorax. Procedure Note Steve Viveros MD - 05/20/2019 Chest 2 views INDICATION: Shortness of breath and pneumonia FINDINGS: 2 views of the chest without prior shows no consolidation, pleural effusion or pneumothorax. IMPRESSION No acute pulmonary disease Reading Radiologist: Steve Viveros MD on 05/20/2019 at 11:30 AM Daysi Osorio MD DIAGNOSTIC IM AGING ORDERABLES * (ABNORMAL) URINALYSIS REFLEX MICROSCOPIC REFLEX CULTURE (05/20/2019 11:21 AM CDT) Color UA Yellow Straw, Yellow 05/20/2019 11:43 AM [facility] Clarity UA Clear Clear 05/20/2019 11:43 AM [facility] Glucose UA 3+(A) Negative 05/20/2019 11:43 AM [facility] Bilirubin UA Negative Negative 05/20/2019 11:43 AM [facility] Ketone UA 1+(A) Negative 05/20/2019 11:43 AM [facility] Specific [place] UA 1.039(H) 1.005 - 1.030 05/20/2019 11:43 AM [facility] Blood UA Negative Negative 05/20/2019 11:43 AM [facility] pH UA 6.0 5.0 - 8.0 pH 05/20/2019 11:43 AM [facility] Protein UA Negative Negative 05/20/2019 11:43 AM [facility] Urobilinogen UA Negative Negative mg/dL 05/20/2019 11:43 AM [facility] Nitrite UA Negative Negative 05/20/2019 11:43 AM [facility] Leukocyte UA Negative Negative 05/20/2019 11:43 AM [facility] Urine Microscopy Urine microscopy not indicated 05/20/2019 11:43 AM [facility] Reflex Status Culture not indicated 05/20/2019 11:43 AM [facility] Urine URINE SPECIMEN OBTAINED BY CLEAN CATCH PROCEDURE / Unknown 05/20/2019 11:21 AM CDT 05/20/2019 11:37 AM CDT Narrative [facility] - 05/20/2019 11:43 AM CDT Daysi Osorio MD LAB - URINALY SIS ORDERABLES [facility] [address] [id number] * (ABNORMAL) BASIC METABOLIC PANEL (CALCIUM TOTAL) (05/20/2019 11:02 AM CDT) Only the most recent of2 resultswithin the time period is included. [facility] Glucose 450(HH) 74 - 106 mg/dL 05/20/2019 12:02 PM [facility] Sodium 138 136 - 145 mmol/L 05/20/2019 12:02 PM [facility] Potassium 3.3(L) 3.5 - 5.1 mmol/L 05/20/2019 12:02 PM [facility] Chloride 98 98 - 107 mmol/L 05/20/2019 12:02 PM [facility] CO2 26 23 - 31 mmol/L 05/20/2019 12:02 PM [facility] Calcium 10.6(H) 8.4 - 10.2 mg/dL 05/20/2019 12:02 PM [facility] Anion Gap 14 8 - 16 mmol/L 05/20/2019 12:02 PM [facility] BUN 20 8.4 - 25.7 mg/dL 05/20/2019 12:02 PM [facility] Creatinine 1.06 0.73 - 1.18 mg/dL 05/20/2019 12:02 PM [facility] eGFR by MDRD >60 mL/min/1.7 3m2 05/20/2019 12:02 PM [facility] eGFR by MDRD >60 mL/min/1.7 3m2 05/20/2019 12:02 PM [facility] Blood BLOOD SPECIMEN / Unknown 05/20/2019 11:02 AM CDT 05/20/2019 11:13 AM CDT Daysi Osorio MD LAB - VESSEL WELDER RY ORDERABLES [facility] [address] [id number] * CT CHEST WO CONTRAST (07/28/2018 12:11 PM DIRECTOR PLANS) Only the most recent of2 resultswithin the time period is included. Anatomical Region Laterality Modality Chest Computed Tomogra phy 07/28/2018 12:5 9 PM DIRECTOR PLANS Impressions 07/28/2018 1:22 PM DIRECTOR PLANS 1. Stable bilateral pulmonary nodules. 2. No change osseous metastatic disease within the T7 and T9 vertebral bodies. Edited by Radha Mobley on 07/28/2018 1:10 PM Reading Radiologist: Steve Viveros MD on 07/28/2018 at 1:22 PM Narrative 07/28/2018 1:[address] THORAX NONCONTRAST INDICATION: Prostate cancer, pulmonary nodules, restaging. TECHNIQUE: 2 mm axial images through the thorax noncontrast. COMPARISON: December 31, 2017. FINDINGS: There is redemonstration of a noncalcified nodule in the right lower lobe on image 78 measuring now approximately 6.9 mm. The right lower lobe noncalcified nodule on image 87 measures 6.9 mm, previously approximately 8 mm. Small subpleural nodules bilaterally are redemonstrated. The one in the left lower lobe on image 131 still measures approximately 4 mm. There is mild atelectasis in both lung bases. There is no pleural effusion or pneumothorax. Stable calcified granuloma in the right apex is demonstrated. There is no bulky axillary or mediastinal lymphadenopathy. There is atherosclerotic calcification in the thoracic aorta. Coronary artery calcifications are present. There is redemonstration of osteoblastic sclerotic lesions within the T7 and T9 vertebral bodies, similar to prior. Incidentally noted, there is redemonstration of multiple calcifications throughout the pancreas which suggests chronic pancreatitis. This may be correlated clinically. Procedure Note Steve Viveros MD - 07/28/2018 CT THORAX NONCONTRAST INDICATION: Prostate cancer, pulmonary nodules, restaging. TECHNIQUE: 2 mm axial images through the thorax noncontrast. COMPARISON: December 31, 2017. FINDINGS: There is redemonstration of a noncalcified nodule in the right lower lobe on image 78 measuring now approximately 6.9 mm. The right lower lobe noncalcified nodule on image 87 measures 6.9 mm, previously approximately 8 mm. Small subpleural nodules bilaterally are redemonstrated. The one in the left lower lobe on image 131 still measures approximately 4 mm. There is mild atelectasis in both lung bases. There is no pleural effusion or pneumothorax. Stable calcified granuloma in the right apex is demonstrated. There is no bulky axillary or mediastinal lymphadenopathy. There is atherosclerotic calcification in the thoracic aorta. Coronary artery calcifications are present. There is redemonstration of osteoblastic sclerotic lesions within the T7 and T9 vertebral bodies, similar to prior. Incidentally noted, there is redemonstration of multiple calcifications throughout the pancreas which suggests chronic pancreatitis. This may be correlated clinically. IMPRESSION 1. Stable bilateral pulmonary nodules. 2. No change osseous metastatic disease within the T7 and T9 vertebral bodies. Edited by Radha Mobley on 07/28/2018 1:10 PM Reading Radiologist: Steve Viveros MD on 07/28/2018 at 1:22 PM Iris Orellana APRN-PARQUETRY LAYER CT ORDERABLES * HEPATITIS SCREEN ACUTE (10/06/2017 9:40 AM DIRECTOR PLANS) Hepatitis A Virus Antibody IgM Non Reactive Non Reactive [facility] INSURANCE BILL Hepatitis B Virus Surface Antigen Non Reactive Non Reactive [facility] INSURANCE BILL Hepatitis B Core Virus Antibody IgM Non Reactive Non Reactive [facility] INSURANCE BILL Hepatitis C Antibody Non Reactive Non Reactive [facility] INSURANCE BILL Comment: Non Reactive - Antibodies to Hepatitis C virus (HCV) were no t detected, result does not exclude early acute HCV infection. Non Reactive - Antibodies to Hepatitis C virus (HCV) were no t detected, result does not exclude early acute HCV infection. Blood BLOOD SPECIMEN / Unknown 10/06/2017 9:40 AM DIRECTOR PLANS 10/06/2017 Narrative Resulting Agency Comment [facility] [address] [place] [address] [phone] Daysi Osorio MD LAB - VESSEL WELDER RY ORDERABLES [facility] INSURANCE BILL [address] [address] * CT CHEST WITH CONTRAST (09/18/2017 10:27 AM DIRECTOR PLANS) Anatomical Region Laterality Modality Chest Computed Tomogra phy 09/18/2017 11:0 8 AM DIRECTOR PLANS Impressions 09/18/2017 11:14 AM DIRECTOR PLANS Scattered pulmonary nodules, all subcentimeter in size. The largest is in the right lower lobe and measures 8 mm. These are below the resolution of PET. Consider short interval follow-up chest CT in 3 months. Narrative 09/18/2017 11:[address] Chest With Contrast INDICATION: Malignant neoplasm of prostate. TECHNIQUE: Axial images of the chest with contrast were obtained and reconstructions performed. Omnipaque 350 80 cc IV contrast was administered. FINDINGS: Pulmonary nodule right lower lobe image 90 of series 4, of 8 mm. Right lower lobe pulmonary nodule 7 mm image 80 of series 4. Small pulmonary nodules abutting the pleura left lower lobe image 133 of series 45, measuring and 6 mm. No airspace consolidation or edema. The central airways are clear. There is a calcified granuloma at the right apex. No osseous lesion identified or acute osseous abnormality. Subcutaneous nodules noted distally the right of midline anterior chest wall of 2 cm, likely a sebaceous cysts. There is no supraclavicular or axillary lymphadenopathy. There is no mediastinal or hilar adenopathy. The heart is normal in size. There is no pericardial effusion. Plaque is noted in the coronary arteries. Imaged upper abdomen shows coarse calcifications within the pancreas in the dilated duct. Reference MRI from 04/04 2017 Procedure Note Samy Luo MD - 09/18/2017 CT Chest With Contrast INDICATION: Malignant neoplasm of prostate. TECHNIQUE: Axial images of the chest with contrast were obtained and reconstructions performed. Omnipaque 350 80 cc IV contrast was administered. FINDINGS: Pulmonary nodule right lower lobe image 90 of series 4, of 8 mm. Right lower lobe pulmonary nodule 7 mm image 80 of series 4. Small pulmonary nodules abutting the pleura left lower lobe image 133 of series 45, measuring and 6 mm. No airspace consolidation or edema. The central airways are clear. There is a calcified granuloma at the right apex. No osseous lesion identified or acute osseous abnormality. Subcutaneous nodules noted distally the right of midline anterior chest wall of 2 cm, likely a sebaceous cysts. There is no supraclavicular or axillary lymphadenopathy. There is no mediastinal or hilar adenopathy. The heart is normal in size. There is no pericardial effusion. Plaque is noted in the coronary arteries. Imaged upper abdomen shows coarse calcifications within the pancreas in the dilated duct. Reference MRI from 04/04 2017 IMPRESSION Scattered pulmonary nodules, all subcentimeter in size. The largest is in the right lower lobe and measures 8 mm. These are below the resolution of PET. Consider short interval follow-up chest CT in [address] MD [address] ORDERABLES * MRI PELVIS WITH AND WITHOUT CONTRAST (09/12/2017 12:55 PM DIRECTOR PLANS) Anatomical Region Laterality Modality Pelvis Magnetic Resonan ce 09/12/2017 2:53 PM DIRECTOR PLANS Impressions 09/12/2017 4:26 PM DIRECTOR PLANS STABLE APPEARANCE OF THE SUSPICIOUS LOW T2 SIGNAL MASS WITHIN THE DEEP ANTERIOR TRANSITIONAL ZONE AT THE APEX. NEW PARTIALLY-CIRCUMSCRIBED LOW T2 SIGNAL NODULE WITHIN THE TRANSITIONAL ZONE OF THE MID GLAND MOST LIKELY REPRESENTING A STROMAL NODULE AND LESS LIKELY CARCINOMA. NO MR EVIDENCE OF EXTRACAPSULAR DISEASE. PI-RADS 4. Edited by Khushbu Stephen on 09/12/2017 3:17 PM Narrative 09/12/2017 4:26 PM DIRECTOR PLANS MRI PROSTATE, WITH AND WITHOUT CONTRAST CLINICAL INDICATION: 76-year-old male with prostate cancer and a rising PSA following treatment. COMPARISON: MRI prostate 02/19/2017. TECHNIQUE: Precontrast T1, T2 and diffusion-weighted images of the prostate gland are obtained. Sequential dynamic contrast-enhanced T1-weighted images are obtained. 20 mL gadolinium contrast were used. Complex postprocessing with 3-D reconstruction was performed at an independent workstation. FINDINGS: There is redemonstration of an 18 mm low T2 signal mass within the deep anterior transitional zone centered at the midline at the apex. Restricted diffusion is identified within this lesion. This most likely represents the site of primary prostate carcinoma. There is a new 9 mm partially-circumscribed partially-obscured low T2 signal nodule exhibiting restricted diffusion within the anterior midline transitional zone at the mid gland. This is an indeterminate lesion, and the circumscribed borders suggest a stromal nodule, however the possibility of an island of carcinoma cannot be entirely excluded. No restricted diffusion or suspicious low T2 signal masses are identified within the peripheral zone. There is no MR evidence of extracapsular extension of tumor. There are no enlarged periprostatic lymph nodes. The seminal vesicle complex is within normal limits. Procedure Note Hernandez Coleman MD - 09/12/2017 MRI PROSTATE, WITH AND WITHOUT CONTRAST CLINICAL INDICATION: 76-year-old male with prostate cancer and a rising PSA following treatment. COMPARISON: MRI prostate 02/19/2017. TECHNIQUE: Precontrast T1, T2 and diffusion-weighted images of the prostate gland are obtained. Sequential dynamic contrast-enhanced T1-weighted images are obtained. 20 mL gadolinium contrast were used. Complex postprocessing with 3-D reconstruction was performed at an independent workstation. FINDINGS: There is redemonstration of an 18 mm low T2 signal mass within the deep anterior transitional zone centered at the midline at the apex. Restricted diffusion is identified within this lesion. This most likely represents the site of primary prostate carcinoma. There is a new 9 mm partially-circumscribed partially-obscured low T2 signal nodule exhibiting restricted diffusion within the anterior midline transitional zone at the mid gland. This is an indeterminate lesion, and the circumscribed borders suggest a stromal nodule, however the possibility of an island of carcinoma cannot be entirely excluded. No restricted diffusion or suspicious low T2 signal masses are identified within the peripheral zone. There is no MR evidence of extracapsular extension of tumor. There are no enlarged periprostatic lymph nodes. The seminal vesicle complex is within normal limits. IMPRESSION STABLE APPEARANCE OF THE SUSPICIOUS LOW T2 SIGNAL MASS WITHIN THE DEEP ANTERIOR TRANSITIONAL ZONE AT THE APEX. NEW PARTIALLY-CIRCUMSCRIBED LOW T2 SIGNAL NODULE WITHIN THE TRANSITIONAL ZONE OF THE MID GLAND MOST LIKELY REPRESENTING A STROMAL NODULE AND LESS LIKELY CARCINOMA. NO MR EVIDENCE OF EXTRACAPSULAR DISEASE. PI-RADS 4. Edited by Khushbu Stephen on 09/12/2017 3:17 PM Kunal Sorensen MD MR ORDERABLES * (ABNORMAL) CREATININE BLOOD - POINT OF CARE (IP) (09/12/2017 12:05 PM DIRECTOR PLANS) Creatinine POCT 0.64(A) 0.7 - 1.2 mg/dL [facility] POCT TESTING QC Verified Yes Yes [facility] POC T TESTING Blood BLOOD SPECIMEN / Unknown 09/12/2017 12:05 PM DIRECTOR PLANS Kunal Sorensen MD LAB - POINT OF CARE ORDERABLES [facility] POCT TESTING [address] [place] [address], [facility] * MRI ABDOMEN WITH & WITHOUT CONTRAST (09/04/2017 3:18 PM DIRECTOR PLANS) Anatomical Region Laterality Modality Abdomen Magnetic Resonan ce 09/04/2017 4:48 PM DIRECTOR PLANS Narrative 09/04/2017 4:55 PM DIRECTOR PLANS MRI abdomen, with and without contrast Magnetic resonance cholangiography Indication for examination: Prostate cancer. Pancreatic cyst. Precontrast T1 and T2-weighted images with contrast-enhanced T1-weighted images of the abdomen are obtained with attention to the pancreas and biliary system. 15 cc Dotarem contrast were used. No prior abdominal imaging studies are available. Examination of the pancreas reveals pancreatic parenchymal atrophy. There are multiple small cystic foci within the head of the pancreas at its right lateral aspect. Findings are associated with marked generalized irregular dilatation of the pancreatic duct and sidebranches. Main pancreatic duct has a maximum diameter of approximately 18 mm. No solid appearing pancreatic mass is identified. No acute peripancreatic fluid or inflammatory change. 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 Following contrast administration, no focal pancreatic parenchymal enhancement is identified. No intraductal enhancement is observed. Findings in the pancreas may all be postinflammatory in etiology. Comparison with any available prior abdominal imaging examinations would be of value. Liver and spleen are normal in size. No focal parenchymal abnormality identified. There are no abnormally enlarged retroperitoneal or peripancreatic lymph nodes. No free fluid. Magnetic resonance cholangiography reveals that the intrahepatic and extrahepatic bile ducts are normal in caliber. No filling defect is identified. Gallbladder is normal in appearance. CONCLUSION: Pancreatic parenchymal atrophy, associated with marked generalized irregular dilatation of the main pancreatic duct and its side branches. There are multiple small cystic foci in the head of the pancreas at its right lateral aspect. No enhancing solid pancreatic mass identified. Pancreas divisum. Normal caliber intrahepatic and extrahepatic bile ducts. No acute peripancreatic fluid or inflammatory change. No adenopathy. Comparison with any available prior outside radiographic studies would be of value. Procedure Note Samy Esteves MD - 09/04/2017 MRI abdomen, with and without contrast Magnetic resonance cholangiography Indication for examination: Prostate cancer. Pancreatic cyst. Precontrast T1 and T2-weighted images with contrast-enhanced T1-weighted images of the abdomen are obtained with attention to the pancreas and biliary system. 15 cc Dotarem contrast were used. No prior abdominal imaging studies are available. Examination of the pancreas reveals pancreatic parenchymal atrophy. There are multiple small cystic foci within the head of the pancreas at its right lateral aspect. Findings are associated with marked generalized irregular dilatation of the pancreatic duct and sidebranches. Main pancreatic duct has a maximum diameter of approximately 18 mm. No solid appearing pancreatic mass is identified. No acute peripancreatic fluid or inflammatory change. 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 Following contrast administration, no focal pancreatic parenchymal enhancement is identified. No intraductal enhancement is observed. Findings in the pancreas may all be postinflammatory in etiology. Comparison with any available prior abdominal imaging examinations would be of value. Liver and spleen are normal in size. No focal parenchymal abnormality identified. There are no abnormally enlarged retroperitoneal or peripancreatic lymph nodes. No free fluid. Magnetic resonance cholangiography reveals that the intrahepatic and extrahepatic bile ducts are normal in caliber. No filling defect is identified. Gallbladder is normal in appearance. CONCLUSION: Pancreatic parenchymal atrophy, associated with marked generalized irregular dilatation of the main pancreatic duct and its side branches. There are multiple small cystic foci in the head of the pancreas at its right lateral aspect. No enhancing solid pancreatic mass identified. Pancreas divisum. Normal caliber intrahepatic and extrahepatic bile ducts. No acute peripancreatic fluid or inflammatory change. No adenopathy. Comparison with any available prior outside radiographic studies would be of value. Raphael Hernandez MD MR ORDERABLES * MRI PELVIS NON CONTRAST (02/19/2017 12:04 PM CDT) Anatomical Region Laterality Modality Pelvis Magnetic Resonan ce 02/19/2017 1:40 PM CDT Narrative 02/19/2017 1:51 PM CDT MRI PELVIS WITHOUT CONTRAST HISTORY: Prostate cancer. TECHNIQUE: Multisequence, multiplanar MRI sequences of the pelvis were obtained without contrast. FINDINGS: Images are obtained for pretreatment planning purposes. The prostate is enlarged. No adenopathy or bony lesion is seen. Edited by Khushbu Stephen on 02/19/2017 1:44 PM Procedure Note Milton Alcazar MD - 02/19/2017 MRI PELVIS WITHOUT CONTRAST HISTORY: Prostate cancer. TECHNIQUE: Multisequence, multiplanar MRI sequences of the pelvis were obtained without contrast. FINDINGS: Images are obtained for pretreatment planning purposes. The prostate is enlarged. No adenopathy or bony lesion is seen. Edited by Khushbu Stephen on 02/19/2017 1:44 PM Kunal Sorensen MD MR ORDERABLES * CARDIAC RHYTHM STRIP ORDER (02/13/2017 9:03 PM CDT) Narrative 02/13/2017 9:03 PM CDT Ordered by an unspecified provider. Scanned Document CARDIAC SERVICES ORD ERABLES * FL RACHEAL SURGERY LESS 60 MIN (02/12/2017 8:25 AM CDT) Anatomical Region Laterality Modality Radiographic Simona ging 02/12/2017 8:48 AM CDT Narrative 02/12/2017 10:16 AM CDT Fluoroscopy was provided. A radiologist was not present. Edited by Khushbu Stephen on 02/12/2017 8:50 AM Procedure Note Steve Viveros MD - 02/12/2017 Fluoroscopy was provided. A radiologist was not present. Edited by Khushbu Stephen on 02/12/2017 8:50 AM Kunal Sorensen MD FLUOROSCOPY ORDERABL ES * PT PTT PANEL (02/06/2017 3:35 PM CDT) INR 1.0 0.9 - 1.1 [facility] INSURANCE BILL PT 10.9 9.5 - 11.6 sec [facility] INSURANCE BILL PTT 24.6 21.0 - 32.0 sec [facility] INSURANCE BILL Comment: Conventional Warfarin Anticoagulant Therapy: INR Reference Range: 2.0-3.0 Intensive Warfarin Anticoagulant Therapy: INR Reference Range: 2.5-3.5 Heparin Therapeutic Range for PTT: 47.7 - 68.6 seconds. Blood BLOOD SPECIMEN / Unknown 02/06/2017 3:35 PM CDT 02/06/2017 Narrative Resulting Agency Comment [facility] [address] [phone] Kunal Sorensen MD LAB - COAGULATION OR DERABLES Performing Organization Address City/[facility]/ZIP Co de Phone Number [facility] INSURANCE BILL [address] [place] [address] * (ABNORMAL) PROSTATE SPECIFIC ANTIGEN SCREEN (02/06/2017 3:25 PM CDT) PSA 10.60(H) 0.00 - 4.00 ng/mL [facility] INSURANCE BILL Blood BLOOD SPECIMEN / Unknown 02/06/2017 3:25 PM CDT 02/06/2017 Narrative Resulting Agency Comment [address] [phone] Kunal Sorensen MD LAB - CHEMISTRY ORDE RABLES Performing Organization Address [facility] Co de Phone Number [facility] INSURANCE BILL [address] [place] [address] * LAB RESULTS ORDER (11/25/2016) Historical Provider LAB - THERAPEUTIC DRUG MONITORING ORDERABLES * IMAGING/RADIOLOGY/XRAY RESULTS ORDER (11/19/2016) Anatomical Region Laterality Modality Other Historical Provider IMAGING * PATHOLOGY/CYTOLOGY REPORT ORDER (11/07/2016) Only the most recent of2 resultswithin the time period is included. Historical Provider LAB - PATHOLOGY/C YTOLOGY ORDERABLES * PATHOLOGY TISSUE FOR DERMATOLOGY (12/02/2013 12:00 AM CDT) Only the most recent of2 resultswithin the time period is included. Result CASE: [id number] PATIENT: FIDELIA GRACIAALEXANDER PATHOLOGIC DIAGNOSIS: Right upper back: LINEAR GRANULAR BASEMENT MEMBRANE ZONE POSITIVITY WITH C3 COLLOID BODIES (see microscopic description and comment) (see fixed tissue results [id number]) IgA IgM IgG C3 ColIV Fibrinogen Epidermis - - - - - - Basement Membrane - - - Trace linear granular 2+ 1+ Vessels - - - - 2+ - Interstitium - Colloid - - - 2+ CLINICAL DATA: Neuroderm. GROSS DESCRIPTION: Received is one Mk's media filled container labeled with the patient's name and designated right upper back. The specimen consists of a punch biopsy measuring [id number]. The specimen is submitted in whole for direct immunofluorescence testing. MICROSCOPIC DESCRIPTION: Controls were run in parallel. There is IgM in the papillary dermis consistent with colloid bodies. Staining is negative with IgG and IgA. There is trace linear granular C3 at the dermal-epidermal junction. Fibrinogen shows staining at the basement membrane zone and underlying interstitium. COMMENT: The fibrinogen staining is most likely related to the healing skin changes. The trace linear granular basement membrane C3 staining is a common and non-specific staining pattern, which can be seen in chronically sun exposed skin. Colloid bodies represent dyskeratotic keratinocytes and can be seen with chronic rubbing / scratching. See fixed tissue results ([id number]). Electronically signed out by Nicole See M.D., PhD. 12/06/2013 1:59:02PM [facility] Comment: Performed at: Dermatopathology Laboratory [facility] Department of Dermatology [address] [place] [address] [place] [address] Phone number: [phone] FAX: [phone] 12/02/2013 12/03/2013 Raphael Reyes LAB - PATHOLOGY/CYTO LOGY ORDERABLES [facility] [address] [place] [address]. [address] [place] [address] Care Teams Director Of Education Relationship Specialty Start Date End Date Kunal Jensen DO PCP - General Internal Medicine 09/25/20 [place] [id number] [address] Physical Medicine and Rehabilitation 02/05/23
--- OUTSIDE RECORDS SUMMARY | 2024-11-02 13:18 | XMS_ITS | Encounter Summary ---
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
--- OUTSIDE RECORDS SUMMARY | 2024-11-02 13:18 | XMS_ITS | Referral Summary ---
Author Organization [facility] Address [address] [place] [address] Care Team Providers Care Patient Access Name Role Phone Daysi Osorio MD Unavailable Aaron Munoz MD Unavailable [phone] Kunal Jensen DO Primary Care Provider [phone] Encounters Date Type Department Care Team Description 09/23/2024 3:30 PM STORE DIRECTOR Office Visit [facility] Medical Office Building 2 Radiation Oncology [address] [place] [address] Aaron Munoz MD Malignant neoplasm of prostate (HCC) (Primary Dx) 09/14/2024 Telephone [facility] Office Building 2 Radiation Oncology [address] [place] [address] Stacie Marte RN 08/13/2024 1:00 PM STORE DIRECTOR - 08/13/2024 11:59 PM STORE DIRECTOR Hospital Encounter [facility] Medical Office Building [address] [place] [id number] Malignant neoplasm of prostate (HCC) Discharge Disposition: Discharge to home or self care 08/13/2024 1:00 PM STORE DIRECTOR Treatment [facility] Medical Office Building 2 Radiation Oncology [address] [place] [address] Aaron Munoz MD 08/02/2024 Orders Only [facility] Office Building 2 Radiation Oncology [address] [place] [address] Aaron Munoz MD Malignant neoplasm of prostate (HCC) (Primary Dx) from Last 3 Months Allergies No known active allergies Medications chlorthalidone [...] (10/02/2018): Added automatically from request for surgery [id number] Social History Tobacco Use Types Packs/Day Years [...] on file Legal Sex Male 3:32 AM STORE DIRECTOR Gender Identity Not on file Sexual Orientation Not on file Last Filed Vital Signs Vital Sign Reading Time Taken Comments Blood Pressure 145/81 09/23/2024 3:18 PM STORE DIRECTOR Pulse 81 09/23/2024 3:18 PM STORE DIRECTOR Temperature 36.7 C (98.1 F) 09/21/2019 10:55 AM STORE DIRECTOR Respiratory Rate 18 09/21/2019 11:15 AM STORE DIRECTOR Oxygen Saturation 100% 09/23/2024 3:18 PM STORE DIRECTOR Inhaled Oxygen Concentration - - Weight 111.6 kg (246 lb) 09/23/2024 3:18 PM STORE DIRECTOR Height 185.4 cm (6' 1 ) 09/21/2019 10:02 AM STORE DIRECTOR Body Mass Index 32.46 09/21/2019 10:02 AM STORE DIRECTOR Plan of Treatment Not on file Procedures Procedure Name Priority Date/Time Associated Diagnosis Comments NM BONE TREATMENT THERAPY Schedule Routine, Read Routine (OP Routine) 08/13/2024 2:12 PM STORE DIRECTOR Malignant neoplasm of prostate (HCC) from Last 3 Months Results * NM Bone Treatment Therapy (08/13/2024 2:12 PM STORE DIRECTOR) Narrative [facility] - 08/13/2024 2:13 PM STORE DIRECTOR Please refer to the physician's procedure / OR operative note. us Aaron Munoz MD IMG NM PROCEDURES Final Result [facility] from Last 3 Months Insurance BLUE CROSS MEDICARE SUPPLEMENT MEDICARE MEDICARE [facility] Member Subscriber Plan / Payer ( fective 2005-Present) Name:Taranbraydon Kartik Zhou Relation to Subscriber:Self Name:Kartik Perez Payer ID:[id number] (NAIC) Type:[facility] Address: [address] [place] [id number] MEDICARE [facility] MEDICARE SUPPLEMENT Advance Directives For more information, please contact: [phone] Documents on File Type Date Recorded Patient Lead Oracle Developer Expl anation ADVANCE DIRECTIVE 09/21/2019 10:23 AM * Full Code (Latest Code Status on File) Date Activated Date Inactivated Comments 09/21/2019 9:57 AM 09/21/2019 4:00 PM * Full Code Date Activated Date Inactivated Comments 12/11/2018 11:42 AM 12/11/2018 5:50 PM Care Teams Patient Access Relationship Specialty Start Date End Date Kunal Jensen DO [address] [address] PCP - General Internal Medicine 02/18/24 Daysi Osorio MD [address] [facility] G[address] [place] [address] Referring Physician Hematology and Oncology 01/09/24 Aaron Munoz MD [address] [place] [address] [id number] Radiation Oncologist Radiation Oncology 01/09/24
[2024-11-02 19:13] LABS: Basophils Percent Auto 0.5 % (0.2-1.2); Eosinophils Absolute Auto 0.2 K/mm3 (0-0.3); Eosinophils Percent Auto 4.1 % (0-4.4); Hematocrit 39.2 % (42.0-52.0); Hemoglobin 12.9 g/dL (14.0-18.0); Immature Granulocyte Absolute 0.02 K/mm3 (0.00-0.031); Immature Granulocyte Percent A 0.4 % (0-0.5); Lymphocytes Absolute Auto 0.97 K/mm3 (0.9-3.2); Lymphocytes Percent Auto 17.2 % (18.3-44.2); Mean Corpuscular HGB Conc 32.9 g/dl (32-36); Mean Corpuscular Hemoglobin 30.3 pg (26-34); Mean Platelet Volume 10.6 fl (7.4-10.4); Monocytes Absolute Auto 0.4 K/mm3 (0.1-0.6); Monocytes Percent Auto 7.6 % (2.6-8.5); Neutrophils Percent Auto 70.2 % (45.5-73.1); Platelet Count Result 192 k/mm3 (150-375); Red Blood Count 4.26 M/mm3 (4.6-6.20); Red Cell Distribution Width 13.8 % (11.5-14.5); White Blood Count 5.6 K/mm3 (4.5-10.0)
[2024-11-02 19:23] LABS: Alanine Aminotransferase 39 U/L (6-50); Albumin Level 4.3 g/dL (3.5-5.1); Alkaline Phosphatase 65 U/L (38-126); Anion Gap 12 mmol/L (4-12); Aspartate Amino Transferase 51 U/L (17-59); Bilirubin,Total 0.8 mg/dL (0.2-1.3); Blood Urea Nitrogen 29 mg/dL (9-20); Calcium 10.1 mg/dL (8.4-10.2); Carbon Dioxide 26 mmol/L (22-30); Chloride 101 mmol/L (98-107); Cholesterol 139 mg/dL (0-200); Estimated Glomerular Filt Rate > 60; Glucose 159 mg/dL (65-110); HDL Direct 34 mg/dL; Potassium 4.7 mmol/L (3.4-5.0); Sodium 139 mmol/L (137-145); Triglycerides 153 mg/dL (<150)
[2024-11-02 19:34] LABS: LDL Cholesterol Direct 63 mg/dL
[2024-11-02 22:21] LABS: Hemoglobin A1C 6.5 % (<5.7)
== END 2024-11-02 11:11 | disposition home or self-care (01) ==
LOC: ANHGOSHLAB 11:11
PROVIDERS: PCP Internal Medicine; Visit Provider Nurse Practitioner
DX: E11.9 Type 2 diabetes mellitus without complications (principal); Z79.4 Long term (current) use of insulin
CPT/HCPCS: 36415; 80053; 80061; 83036; 85025

== ENCOUNTER 2025-05-12 10:47 | Outpatient (CLI) | payer MEDICARE, SELFPAY ==
--- OUTSIDE RECORDS SUMMARY | 2025-04-08 07:05 | XMS_ITS | Encounter Summary ---
Author Organization [facility] Address [address] [facility] [place] [address] Care Team Providers Care Psychological Examiner Name Role Phone Kunal Jensen DO Primary Care Provider [phone] Norm Bridges MD Unavailable Ronna Alexander APRN-[facility] Unavailable [phone]- [phone] Encounter Details Date Type Department Care Team (Latest Contact Info) Description 04/08/2025 7:05 AM CDT - 05/10/2025 11:59 PM CDT Hospital Encounter [facility] Cancer Care - Radiation Oncology [address] [place] [address] Diaz Gamez MD [address] [facility] [address] [place] [address] Discharge Disposition: Home or Self Care Social History Tobacco Use Types Packs/Day Years Used Date Smoking Tobacco: Never Smokeless Tobacco: Never Alcohol Use Standard Drinks/Week Comments Yes 0 (1 standard drink = 0.6 oz pur e alcohol) social PHQ-2 Answer Date Recorded Patient Health Questionnaire-2 Score 0 04/20/2025 Sex and Gender Information Value Date Recorded Sex Assigned at Not on file Legal Sex Male 11:47 AM CDT Gender Identity Not on file Sexual Orientation Not on file 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 Answer Date of Assessment Author No 02/12/2017 6:32 AM Raquel Leon RN * Is person blind or have serious difficulty seeing? Answer Date of Assessment Author No 02/12/2017 6:32 AM Raquel Leon RN * Does person have serious difficulty walking/climbing stairs? Answer Date of Assessment Author No 02/12/2017 6:32 AM Raquel Leon RN * Does person have difficulty dressing/bathing? Answer Date of Assessment Author No 02/12/2017 6:32 AM Raquel Leon RN * Does person have difficulty doing errands alone? Answer Date of Assessment Author No 02/12/2017 6:32 AM Raquel Leon RN * Over the past 2 weeks, how often have you been bothered by any of the following problems? Question Answer Date of Assessment Author Little interest or pleasure in doing things Not at all 04/20/2025 2:08 PM Shirley Larios MA Feeling down, depressed, or hopeless Not at all 04/20/2025 2:08 PM Shirley Lariso MA Patient Health Questionnaire -2 Score 0 04/20/2025 2:08 PM Shirley Larios MA documented as of this encounter Mental Status * Does person have difficulty concentrating/remembering/making decisions? Answer Entry Date Author No 02/12/2017 6:32 AM Raquel Leon RN documented in this encounter Medications at Time of Discharge Accu-Chek Guide test strip Use 1 (one) strip as directed 11/06/2023 acetaminophen (Tylenol) 500 MG tablet Take 1 (one) tablet to 2 (two) tablets by mouth every 4 hours as needed for Fever or Pain Maximum allowable Acetaminophen amount = 4 Grams (4000 mg) / 24 hours. QDAY Calcium Carbonate (CALCIUM 600 PO) Take 600 mg by mouth once daily EASY TOUCH PEN NEEDLES 31G X 5 MM needle 1 (one) Each by Injection route as directed 02/01/2021 enalapril (VASOTEC) 20 MG tablet Take 1 (one) tablet by mouth once daily 4 12/09/2016 enzalutamide (Xtandi) 40 MG capsuleIndicati ons:Malignant neoplasm of prostate (HCC),Cancer, metastatic to bone (HCC) Take 4 (four) capsules by mouth once daily 120 capsule 5 02/21/2025 hydroCHLOROthia zide (Hydrodiuril) 25 MG tablet Take 1 (one) tablet by mouth once daily insulin glargine (Lantus/Semglee ) 100 units/ml injection Inject 6 (six) Units to 10 (ten) Units subcutaneously at bedtime metFORMIN CR 24hr modified (GLUMETZA) 1000 MG (MOD) tablet Take 4 (four) tablets by mouth daily with dinner MICRO-K 10 MEQ capsule Take 1 capsule by mouth daily with breakfast 30 capsule 5 01/28/2019 mometasone (ELOCON) 0.1 % cream Apply 1 Dose to affected area once daily as needed 6 03/03/2017 pravastatin (PRAVACHOL) 20 MG tablet Take 1 (one) tablet by mouth once daily 4 10/16/2017 VITAMIN D PO Take 5,000 Units by mouth once daily documented as of this encounter Plan of Treatment Upcoming Encounters Date Type Department Care Team (Late st Contact Info) Description 05/24/2025 10:50 AM CDT Documentation [facility] Cancer [facility] [address] [place] [address] 05/24/2025 11:10 AM CDT Office Visit [facility] Cancer [facility] [address] [place] [address] Felisha Rucker APRN-CNP [address] [place] [id number] 05/24/2025 2:40 PM CDT Appointment [facility] Infusion Center F [address] [place] [id number] Daysi Osorio MD [address] [place] [id number] Felisha Rucker APRN-DANIE [address] [place] [id number] Ronna Alexander APRN-CNP [address] [place] [address] documented as of this encounter Visit Diagnoses Not on filedocumented in this encounter Care Teams Psychological Examiner Relationship Specialty Start Date End Date Kunal Jensen DO PCP - General Internal Medicine 09/25/20 Ronna Alexander APRN-CNP [address] [place] [address] PCP - Attributed-MSSP 01/06/25 [place] [address] [facility] [address] [place] [address] Physical Medicine and Rehabilitation 02/05/23 documented as of this encounter
--- OUTSIDE RECORDS SUMMARY | 2025-05-12 11:19 | XMS_ITS | Encounter Summary ---
Author Organization [facility] Health Address [address] [place] [address] Care Team Providers Care Economics Lecturer Name Role Phone Huey Resendiz MD Primary Care Provider [phone] Marychuy Posey MD Primary Care Provider [phone] Kunal Jensen DO Primary Care Provider Marcie Wells THERMOSTAT MACHINE TENDER-OIL AND GAS LEASE PUMPER Unavailable Unavailab Norm Roca MD Unavailable Marcie Wells THERMOSTAT MACHINE TENDER-OIL AND GAS LEASE PUMPER Unavailable Unavailab Marcie Parks THERMOSTAT MACHINE TENDER-OIL AND GAS LEASE PUMPER Unavailable Unavailab Jenn Kaur Unavailable Ronna Alexander THERMOSTAT MACHINE TENDER-OIL AND GAS LEASE PUMPER Unavailable [phone] Encounter Details Date Type Department Care Team (Late st Contact Info) Description 09/24/2017 [facility] [address] [place] [address] Kunal Sorensen MD [address] [place] [phone] Social History Tobacco Use Types Packs/Day [...] 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 Answer Date of Assessment Author No 02/12/2017 6:32 AM CDT Raquel Marinelli RN * Is person blind or have serious difficulty seeing? Answer Date of Assessment Author No 02/12/2017 6:32 AM CDT Raquel Marinelli RN * Does person have serious difficulty walking/climbing stairs? Answer Date of Assessment Author No 02/12/2017 6:32 AM CDT Raquel Marinelli RN * Does person have difficulty dressing/bathing? Answer Date of Assessment Author No 02/12/2017 6:32 AM CDT Raquel Marinelli RN * Does person have difficulty doing errands alone? Answer Date of Assessment Author No 02/12/2017 6:32 AM CDT Raquel Marinelli RN documented as of this encounter Mental Status * Does person have difficulty concentrating/remembering/making decisions? Answer Entry Date Author No 02/12/2017 6:32 AM CDT Raquel Marinelli RN documented in this encounter Plan of Treatment Upcoming Encounters Date Type Department Care Team (Late st Contact Info) Description 05/24/2025 10:50 AM CDT Documentation [facility] Health Cancer Care [address] [place] [address] 05/24/2025 11:10 AM CDT Office Visit [facility] Health Cancer Care [address] [place] [address] Felisha Rucker, LORI-OIL AND GAS LEASE PUMPER [address] [place] [phone] 05/24/2025 2:40 PM CDT Appointment [facility] Infusion Center F [address] [place] [address] Daysi Osorio MD [address] [place] [id number] Felisha Rucker THERMOSTAT MACHINE TENDER-OIL AND GAS LEASE PUMPER [address] [facility] [address] [address] [place] [address] Ronna Alexander, THERMOSTAT MACHINE TENDER-OIL AND GAS LEASE PUMPER [address] [facility] [address] [place] [address] documented as of this encounter Visit Diagnoses Not on filedocumented in this encounter Care Teams Economics Lecturer Relationship Specialty Start Date End Date Huey Resendiz MD [address] [address] PCP - General Internal Medicine 02/06/17 03/04/18 Marychuy Posey MD [address] [address] PCP - General Family Medicine 04/22/19 09/24/20 Kunal Jensen DO [address] [address] PCP - General Internal Medicine 09/25/20 Marcie Wells THERMOSTAT MACHINE TENDER-OIL AND GAS LEASE PUMPER PCP - Attributed-MSSP 09/08/20 09/27/21 Marcie Wells THERMOSTAT MACHINE TENDER-OIL AND GAS LEASE PUMPER PCP - Attributed-MSSP 11/06/22 03/02/24 Marcie Wells THERMOSTAT MACHINE TENDER-OIL AND GAS LEASE PUMPER PCP - Attributed-MSSP 09/08/24 01/05/25 Ronna Alexander, THERMOSTAT MACHINE TENDER-OIL AND GAS LEASE PUMPER [address] [place] [address] PCP - Attributed-MSSP 01/06/25 [place] [address] [place] [id number] Physical Medicine and Rehabilitation 02/05/23 Jenn Staples Care Coordination Specialist Care Management 01/03/25 02/17/25 documented as of this encounter
--- OUTSIDE RECORDS SUMMARY | 2025-05-12 11:19 | XMS_ITS | Clinical Summary ---
Author Organization [facility] Address [address] [place] [address] Phone Care Team Providers Care Patient Care Nursing Assistant Name Role Phone Marychuy Posey MD Primary [...] on file Legal Sex Male 4:23 AM PATTERN DATA OPERATOR Gender Identity Not on file Sexual Orientation Not on file Occupation Industry Job Start Date Job End Date Not on file Not on file Not on file Not on file Last Filed Vital Signs Vital Sign Reading Time Taken Comments Blood Pressure 120/77 09/30/2019 12:37 PM PATTERN DATA OPERATOR Pulse 79 09/30/2019 12:37 PM PATTERN DATA OPERATOR Temperature 36.2 C (97.1 F) 09/30/2019 12:37 PM PATTERN DATA OPERATOR Respiratory Rate 12 09/30/2019 12:37 PM PATTERN DATA OPERATOR Oxygen Saturation 96% 09/30/2019 12:37 PM PATTERN DATA OPERATOR Inhaled Oxygen Concentration - - Weight 109.3 kg (241 lb) 09/30/2019 10:56 AM PATTERN DATA OPERATOR Height 185.4 cm (6' 1) 09/30/2019 10:56 AM PATTERN DATA OPERATOR Body Mass Index 31.8 09/30/2019 10:56 AM PATTERN DATA OPERATOR Plan of Treatment Health Maintenance Due Date Last Done Comments DTAP/TDAP/TD VACCINES (1 - Tdap) 1959 PNEUMOCOCCAL VACCINE 50+ YEA RS (1 of 1 - PCV) 1990 ZOSTER VACCINE (1 of 2) 1990 RSV VACCINE (60+ or ) (1 - 1-dose 75+ series) 2015 COLORECTAL SCREENING 09/30/2024 09/30/2019, 09/30/2019, 09/30/2019, Additional history exists INFLUENZA VACCINE (#1) 2025 Procedures Procedure Name Priority Date/Time Associated Diagnosis Comments COLONOSCOPY REPORT 09/30/2019 12 :32 PM PATTERN DATA OPERATOR from Last 3 Months or Most Recently Relevant to Health Maintenance Results * COLONOSCOPY REPORT (09/30/2019 12:32 PM PATTERN DATA OPERATOR) Narrative Procedure Note Kartik Palmer MD - 09/30/2019 12:31 PM CST [facility] Endoscopy Patient Name: Kartik Perez [...] Addenda: 0 Procedure Date: 09/30/2019 11:37:11 AM [address] [address] Kartik Palmer MD GI PROCEDURE ORDERABLES Final Result from Last 3 Months or Most Recently Relevant to Health Maintenance Insurance MEDICARE PART A AND B BCBS SUPP Advance Directives For more information, please contact: [phone] * Full Code (Latest Code Status on File) Date Activated Date Inactivated Comments 09/30/2019 10:50 AM 09/30/2019 3:13 PM * Full Code Date Activated Date Inactivated Comments 07/11/2014 6:41 AM 07/11/2014 10:57 AM Care Teams Patient Care Nursing Assistant Relationship Specialty Start Date End Date Marychuy Posey MD [address] [place] [phone] PCP - General Family Practice 08/19/19
--- OUTSIDE RECORDS SUMMARY | 2025-05-12 11:19 | XMS_ITS | Encounter Summary ---
Author Organization [facility] Address [address] [facility] Attn: Epic Prelude ADT [place] [address] Care Team Providers Care Technical Staff Assistant Name Role Phone Marychuy Posey MD [facility] Encounter Details Date Type Department Care Team (Late st Contact Info) Description 01/18/1992 Outpatient Historical Tavo Killian MD NO ADDRESS ON FILE Social History Tobacco Use Types Packs/Day Years Used Date Smoking Tobacco: Never Assessed Sex and Gender Information Value Date Recorded Sex Assigned at Not on file Legal Sex Male 4:23 AM YARN CARRIER Gender Identity Not on file Sexual Orientation Not on file documented as of this encounter Plan of Treatment Not on file documented as of this encounter Visit Diagnoses Not on filedocumented in this encounter Care Teams Technical Staff Assistant Relationship Specialty Start Date End Date Marychuy Posey MD [address] [place] [address] PCP - General Family Practice 08/19/19 documented as of this encounter
--- OUTSIDE RECORDS SUMMARY | 2025-05-12 11:20 | XMS_ITS | Encounter Summary ---
Author Organization [facility] Address [address] [facility] [place] [address] Care Team Providers Care Children Counselor Name Role Phone Kunal Jensen DO Primary Care Provider Norm Bridges MD Unavailable Ronna Alexander SENIOR SUPPORT ANALYST-SCALE ATTENDANT Unavailable [phone] Encounter Details Date Type Department Care Team (Late st Contact Info) Description 03/23/2025 Results Follow-Up [facility] Cancer Care [address] [facility] [address] [place] [address] Ronna Alexander APRN-SCALE ATTENDANT [address] [facility] [address] [place] [address] Social History Tobacco Use Types Packs/Day Years Used Date Smoking Tobacco: Never Smokeless Tobacco: Never Alcohol Use Standard Drinks/Week Comments Yes 0 (1 standard drink = 0.6 oz pur e alcohol) social PHQ-2 Answer Date Recorded Patient Health Questionnaire-2 Score 0 03/22/2025 Sex and Gender Information Value Date Recorded Sex Assigned at Not on file Legal Sex Male 11:47 AM CDT Gender Identity Not on file Sexual Orientation Not on file 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 Pt verbalized understanding. * Ronna Alexander APRN-CNP - 03/23/2025 2:33 PM CDT Please let patient know the PSA is a bit lower on the new therapy documented in this encounter Plan of Treatment Upcoming Encounters Date Type Department Care Team (Late st Contact Info) Description 05/24/2025 10:50 AM CDT Documentation [facility] Cancer [address] [place] [address] 05/24/2025 11:10 AM CDT Office Visit [facility] Cancer [facility] [address] [place], [place] [address] [address] [place] [address] Felisha Rucker APRN-SCALE ATTENDANT [address] [place] [phone] 05/24/2025 2:40 PM CDT Appointment [facility] Infusion Center F [address] [place] [address] Daysi Osorio MD [address] [place] [address] Felisha Rucker APRN-SCALE ATTENDANT [address] [place] [address] Ronna Alexander APRN-SCALE ATTENDANT [address] [place] [address] documented as of this encounter Visit Diagnoses Not on filedocumented in this encounter Care Teams Children Counselor Relationship Specialty Start Date End Date Kunal Jensen DO PCP - General Internal Medicine 09/25/20 Ronna Alexander APRN-SCALE ATTENDANT [address] [place] [address] PCP - Attributed-MSSP 01/06/25 [place] [address] [facility] [address] [place] [id number] Physical Medicine and Rehabilitation 02/05/23 documented as of this encounter
--- OUTSIDE RECORDS SUMMARY | 2025-05-12 11:20 | XMS_ITS | Clinical Summary ---
Author Organization [facility] Address [address] [place] [address] Care Team Providers Care [employer] Name Role Phone Daysi Osorio MD Unavailable Aaron Munoz MD Unavailable [phone] Kunal Jensen DO Primary Care Provider [phone] Allergies No known active allergies Medications chlorthalidone [...] (10/02/2018): Added automatically from request for surgery [id number] Surgical History Surgery Date Site/Laterality Comments ESOPHAGOSCOPY [...] radiat ion Pre-diabetes Type 2 diabetes mellitus Family History Medical History Relation Name Comments [...] on file Legal Sex Male 3:32 AM SAWMILL SUPERVISOR Gender Identity Not on file Sexual Orientation Not on file Obstetrics History Last Filed Vital Signs Vital Sign Reading Time Taken Comments Blood Pressure 145/81 09/23/2024 3:18 PM SAWMILL SUPERVISOR Pulse 81 09/23/2024 3:18 PM SAWMILL SUPERVISOR Temperature 36.7 C (98.1 F) 09/21/2019 10:55 AM SAWMILL SUPERVISOR Respiratory Rate 18 09/21/2019 11:15 AM SAWMILL SUPERVISOR Oxygen Saturation 100% 09/23/2024 3:18 PM SAWMILL SUPERVISOR Inhaled Oxygen Concentration - - Weight 111.6 kg (246 lb) 09/23/2024 3:18 PM SAWMILL SUPERVISOR Height 185.4 cm (6' 1) 09/21/2019 10:02 AM SAWMILL SUPERVISOR Body Mass Index 32.46 09/21/2019 10:02 AM SAWMILL SUPERVISOR Plan of Treatment Health Maintenance Due Date Last Done Comments Depression Screening 1940 Fall Risk Assessment 1940 Hepatitis B Screening 1958 Zoster Vaccine (1 of 2) 1959 Well Visit 65+ 2005 Covid-19 Vaccine (2023-2 5 season) 2024 12/19/2021, 06/13/2021, 10/27/2020, Additional history exists Influenza Vaccine (#1) 2025 , 06/13/2021, 05/19/2020, Additional history exists DTaP/Tdap/Td Vaccine (2 - Td or Tdap) 11/11/2025 11/12/2015 Pneumococcal vaccine 65+ Completed 07/04/2017, 07/09 Insurance [facility] MEDICARE SUPPLEMENT MEDICARE MEDICARE [facility] MEDICARE [facility] MEDICARE SUPPLEMENT Advance Directives For more information, please contact: [phone] Documents on File Type Date Recorded Patient Outside Upholsterer Expl anation ADVANCE DIRECTIVE 09/21/2019 10:23 AM * Full Code (Latest Code Status on File) Date Activated Date Inactivated Comments 09/21/2019 9:57 AM 09/21/2019 4:00 PM * Full Code Date Activated Date Inactivated Comments 12/11/2018 11:42 AM 12/11/2018 5:50 PM Care Teams [employer] Relationship Specialty Start Date End Date Kunal Jensen DO [address] [place] [address] PCP - General Internal Medicine 02/18/24 Daysi Osorio MD [address] [facility] [address] [place] [address] Referring Physician Hematology and Oncology 01/09/24 Aaron Munoz MD [address] [place] [address] Radiation Oncologist Radiation Oncology 01/09/24
--- OUTSIDE RECORDS SUMMARY | 2025-05-12 11:20 | XMS_ITS | Encounter Summary ---
Author Organization [facility] Address [address] [facility] [place] [address] Care Team Providers Care Booking Manager Name Role Phone Kunal Jensen DO Primary Care Provider Norm Bridges MD Unavailable Ronna Alexander MASTIC MAN-CARVER HAND Unavailable Encounter Details Date Type Department Care Team (Late st Contact Info) Description 04/21/2025 Results Follow-Up [facility] Cancer Care [address] [facility] [address] [place] [address] Felisha Rucker APRN-DANIE [address] [facility] [address] [place] [address] Social History Tobacco Use Types Packs/Day Years [...] 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 Continue oral b12 and b12 injections with his visit. Pt verbalized understanding. documented in this encounter Plan of Treatment Upcoming Encounters Date Type Department Care Team (Late st Contact Info) Description 05/24/2025 10:50 AM CDT Documentation [address] [place] [address] 05/24/2025 11:10 AM CDT Office Visit [address] [place] [phone] Felisha Rucker APRN-CNP [address] [place] [address] 05/24/2025 2:40 PM CDT Appointment [facility] Infusion Center F [address] [place] [address] Daysi Osorio MD [address] [place] [address] Felisha Rucker APRN-CNP [address] [place] [address] Ronna Alexander APRN-CNP [address] [place] [phone] documented as of this encounter Visit Diagnoses Not on filedocumented in this encounter Care Teams Booking Manager Relationship Specialty Start Date End Date Kunal Jensen DO PCP - General Internal Medicine 09/25/20 Ronna Alexander APRN-CNP [facility] [address] [place] [address] PCP - Attributed-MSSP 01/06/25 [place] [address] [facility] [address] [place] [address] Physical Medicine and Rehabilitation 02/05/23 documented as of this encounter
--- OUTSIDE RECORDS SUMMARY | 2025-05-12 11:20 | XMS_ITS | Clinical Summary ---
Author Organization [facility] Address [address] [place] [address] Care Team Providers Care Handkerchief Folder Name Role Phone Kunal Jensen DO Primary Care Provider Norm Bridges MD Unavailable Ronna Alexander APRN-TUBE SPLICER Unavailable [phone] Source Comments [facility],non-owned Affiliates and Associated Physician Practices is amultiple site organization consisting of ambulatory clinics and hospital sitesin [place], [place], [place] and [place]. This disclosure is being madepursuant to the Care Everywhere program and may not contain all information available regarding this patient. Last updated 18.[facility] Allergies No known active allergies Medications * Be aware that medications may not be up to date on this document. Alwaysverify current medications with the patient. enalapril (VASOTEC) 20 MG tablet Take 1 (one) tablet by mouth once daily 4 12/10/19 17 Active mometasone (ELOCON) 0.1 % cream Apply 1 Dose to affected area once daily as needed 6 03/03/20 17 Active Calcium Carbonate (CALCIUM 600 PO) Take 600 mg by mouth once daily Active pravastatin (PRAVACHOL) 20 MG tablet Take 1 (one) tablet by mouth once daily 4 10/16/19 18 Active MICRO-K 10 MEQ capsule Take 1 capsule by mouth daily with breakfast 30 capsule 5 01/29/20 19 Active metFORMIN CR 24hr modified (GLUMETZA) 1000 MG (MOD) tablet Take 4 (four) tablets by mouth daily with dinner Active EASY TOUCH PEN NEEDLES 31G X 5 MM needle 1 (one) Each by Injection route as directed 02/02/20 21 Active insulin glargine (Lantus/Semgle e) 100 units/ml injection Inject 6 (six) Units to 10 (ten) Units subcutaneously at bedtime Active acetaminophen (Tylenol) 500 MG tablet Take 1 (one) tablet to 2 (two) tablets by mouth every 4 hours as needed for Fever or Pain Maximum allowable Acetaminophen amount = 4 Grams (4000 mg) / 24 hours. QDAY Active Accu-Chek Guide test strip Use 1 (one) strip as directed 11/06/19 24 Active VITAMIN D PO Take 5,000 Units by mouth once daily Active hydroCHLOROthi azide (Hydrodiuril) 25 MG tablet Take 1 (one) tablet by mouth once daily Active enzalutamide (Xtandi) 40 MG capsuleIndicat ions:Malignant neoplasm of prostate (HCC),Cancer, metastatic to bone (HCC) Take 4 (four) capsules by mouth once daily 120 capsule 5 02/22/20 25 Active predniSONE (Deltasone) 5 MG tablet Take 1 (one) tablet by mouth once daily 30 tablet 2 12/24/19 25 025 Discontin ued(Tx Complete) Active Problems Problem Noted Date Diagnosed Date High risk medications (not anticoagulants) long- term use 08/11/2024 Thrombocytopenia 12/26/2020 Overview (12/26/2020): 03/27/2020 Dr. 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 Jo CARRERA Malignant neoplasm of prostate 01/14/2017 Cancer Staging:Clinical stage from 11/19/2016:Stage IIA(T1c, N0, M0, PSA: Less than 10, [place] 7) - Signed by Kunal Sorensen MD on 02/11/2017 Pathologic stage from 09/22/2017:Stage IV(TX, NX, M1b, PSA: 20 or greater) - Signed by Daysi Osorio MD on 09/22/2017 Overview (12/26/2020): 12/25/2020 OV, Dr. Osorio Encounters Date Type Department Care Team Description 04/21/2025 Results Follow-Up [address] [place] [address] Felisha Rucker APRN-CNP 04/20/2025 2:10 PM CDT Office Visit [place] [address] [place] [address] Ronna Alexander APRN-CNP Malignant neoplasm of prostate (HCC) (Primary Dx); Cancer, metastatic to bone (HCC); High risk medications (not anticoagulants) long-term use; B12 deficiency 04/20/2025 1:48 PM CDT - 04/20/2025 11:59 PM CDT Hospital Encounter [facility] [address] [place] [address] Daysi Osorio MD Hendrix, Jennifer, APRN-CNP Wiesehan, Holly Joy, APRN-CNP Discharge Disposition: Home or Self Care 04/20/2025 Travel 04/08/2025 7:05 AM CDT - 05/10/2025 11:59 PM CDT Hospital Encounter [facility] [address] [address] Diaz Gamez MD Discharge Disposition: Home or Self Care 04/04/2025 Telephone [facility] [address] [place] [address] Daysi Osorio MD Medication Problem 03/23/2025 Results Follow-Up [place] [address] [place] [phone] Ronna Alexander APRN-CNP 03/22/2025 10:30 AM CDT Office Visit [address] [place] [address] Ronna Alexander APRN-CNP Malignant neoplasm of prostate (HCC) (Primary Dx); Cancer, metastatic to bone (HCC); High risk medications (not anticoagulants) long-term use; B12 deficiency 03/22/2025 9:09 AM CDT - 03/22/2025 11:59 PM CDT Hospital Encounter [facility] [address] [place] [address] [id number] Daysi Osorio MD Hendrix, Jennifer, Ronna Villeda APRN-CNP Discharge Disposition: Home or Self Care 03/22/2025 9:00 AM CDT Office Visit [facility] [address] [place] [address] [place] [address] Diaz Gamez MD Cancer, metastatic to bone (HCC) (Primary Dx); Malignant neoplasm of prostate (HCC) 03/22/2025 Travel 03/02/2025 Office Visit External [facility] [address] [place] [address] Daysi Osorio MD 02/23/2025 Pharmacist Telephone/Documenta tion [facility] [address] [place] [phone] Daysi Osorio MD Medication Monitoring (XTANDI 40 MG TABLET) 02/21/2025 Results Follow-Up [place] [address] [place] [phone] Daysi Osorio MD 02/21/2025 Refill [place] [address] [address] Daysi Osorio MD MEDICATION REFILL 02/21/2025 Telephone [facility] [address] [place] [address] Daysi Osorio MD Medication Prior Auth Request 02/18/2025 11:00 AM CDT Office Visit [facility] [address] [place] [address] Daysi Osorio MD Malignant neoplasm of prostate (HCC) (Primary Dx); Cancer, metastatic to bone (HCC); High risk medications (not anticoagulants) long-term use; B12 deficiency 02/18/2025 10:30 AM CDT - 02/18/2025 11:59 PM CDT Hospital Encounter [facility] [address] [place] [address] Daysi Osorio MD Hendrix, Jennifer, TEST AND RESEARCH REACTOR OPERATOR-TUBE SPLICER Ronna Alexander, TEST AND RESEARCH REACTOR OPERATOR-TUBE SPLICER Discharge Disposition: Home or Self Care 02/18/2025 Travel from Last 3 Months Immunizations Immunization Administration Dates Next Due COVID MODERNA BIVALENT 12Y+ 50MCG/0.5ML 06/21/20 COVID PFIZER 12+YR 30MCG/0.3mL 06/01/2024,2022 Covid Pfizer primary Monoval ent 12+ yr 0.3ml 12/19/2021 Covid Pfizer primary monoval ent 12+ yr 0.3mL Purple cap 06/13/2021,10/27/2020,10/06/2020 INFLUENZA VACCINE, ADJUVANTE D, QUADR. (FLUAD QUADRIVALENT; 65Y+) (AIIV4) 06/05/2023,06/14/2022 INFLUENZA VACCINE, ADJUVANTE D, TRIV. (FLUAD TRIVALENT; 65Y+) (AIIV3) 06/01/2024,07/01/2019 INFLUENZA VACCINE, HIGH-DOSE , QUADR. (FLUZONE HIGH-DOSE QUADRIVALENT; 65Y+), 0.7 ML (HD-IIV4) 06/13/2021,05/19/2020,07/14/2018 INFLUENZA VACCINE, HIGH-DOSE , TRIV. (FLUZONE HIGH-DOSE TRIVALENT; 65Y+) (HD-IIV3) 07/14/2018,07/04/2017,08/18/2016 INFLUENZA VACCINE, QUADR. 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 Not on file Not on file Last Filed Vital Signs Vital Sign Reading Time Taken Comments Blood Pressure 144/71 04/20/2025 2:49 PM CDT Pulse 100 04/20/2025 2:49 PM CDT Temperature 36.2 C (97.1 F) 04/20/2025 2:49 PM CDT Respiratory Rate 18 04/20/2025 2:49 PM CDT Oxygen Saturation 96% 04/20/2025 2:49 PM CDT Inhaled Oxygen Concentration - - Weight 106.1 kg (234 lb) 04/20/2025 2:08 PM CDT Height 185.4 cm (6' 1) 04/20/2025 2:08 PM CDT Body Mass Index 30.87 04/20/2025 2:08 PM CDT Plan of Treatment Upcoming Encounters Date Type Department Care Team (Late st Contact Info) Description 05/24/2025 10:50 AM CDT Documentation [facility] [address] [phone] 05/24/2025 11:10 AM CDT Office Visit [facility] [address] [place] [phone] Felisha Rucker, TEST AND RESEARCH REACTOR OPERATOR-TUBE SPLICER [address] [place] [phone] 05/24/2025 2:40 PM CDT Appointment [facility] Infusion Center [address] [place] [address] Daysi Osorio MD [address] [place] [address] Felisha Rucker APRN-TUBE SPLICER [address] [place] [phone] Ronna Alexander, TEST AND RESEARCH REACTOR OPERATOR-TUBE SPLICER [address] [place] [phone] Health Maintenance Due Date Last Done Comments MEDICARE AWV 12 MONTHS 1940 ZOSTER VACCINE (1 of 2) 1990 COVID-19 VACCINE ( season) 2025 06/01/2024, 06/05/2023, 06/21/2022, Additional history exists INFLUENZA VACCINE (#1) 2025 , 06/05/2023, 06/14/2022, Additional history exists DTAP/TDAP/TD VACCINES (3 - Td or Tdap) 07/30/2034 07/30/2024, 11/12/2015 PNEUMOCOCCAL VACCINE 50+ Completed 07/04/2017, 07/09 Respiratory Syncytial Virus (RSV) Vaccine Pt: or [...] complete this topic MENINGOCOCCAL (Group B) VACCINE SHARED DECISION-MAKING Aged Out No longer eligible based on patient's age to complete this topic MENINGOCOCCAL GROUPS A/C/Y/W VACCINE Aged Out No longer eligible based on patient's age to complete this topic Medical Devices Implanted Type Area Tonguer Device Identifier Shelf Expiration Date Model / Serial / Lot 2-0.75 Diameter X 5mm Visicoil By 15mm Long Pgla Spacer With Sleeve In Pre-Waxed 18gauge Needle-Needle Length:20cm Implanted:Qty: 2 on 02/12/2017 by Kunal Sorensen MD at [facility] 06/07/2019 [id number] / / [id number] Description:Tonguer [employer]; 2 Needle packages opened containing 2 markers apiece. Procedures Procedure Name Priority Date/Time Associated Diagnosis Comments COMPREHENSIVE METABOLIC PANEL STAT 04/20/2025 1:58 PM CDT Malignant neoplasm of prostate (HCC) Cancer, metastatic to bone (HCC) High risk medications (not anticoagulants) long-term use B12 deficiency CBC W AUTO DIFFERENTIAL (CANCER CARE) Routine 04/20/2025 1:52 PM CDT Malignant neoplasm of prostate (HCC) Cancer, metastatic to bone (HCC) High risk medications (not anticoagulants) long-term use B12 deficiency VITAMIN B12 Routine 04/20/2025 1:52 PM CDT Malignant neoplasm of prostate (HCC) Cancer, metastatic to bone (HCC) High risk medications (not anticoagulants) long-term use B12 deficiency PSA SERIAL Routine 04/20/2025 1:52 PM CDT Malignant neoplasm of prostate (HCC) Cancer, metastatic to bone (HCC) High risk medications (not anticoagulants) long-term use B12 deficiency COMPREHENSIVE METABOLIC PANEL STAT 03/22/2025 10:21 AM CDT Malignant neoplasm of prostate (HCC) Cancer, metastatic to bone (HCC) High risk medications (not anticoagulants) long-term use B12 deficiency CBC W AUTO DIFFERENTIAL (CANCER CARE) Routine 03/22/2025 10:14 AM CDT Malignant neoplasm of prostate (HCC) Cancer, metastatic to bone (HCC) High risk medications (not anticoagulants) long-term use B12 deficiency VITAMIN B12 Routine 03/22/2025 10:14 AM CDT Malignant neoplasm of prostate (HCC) Cancer, metastatic to bone (HCC) High risk medications (not anticoagulants) long-term use B12 deficiency PSA SERIAL Routine 03/22/2025 10:14 AM CDT Malignant neoplasm of prostate (HCC) Cancer, metastatic to bone (HCC) High risk medications (not anticoagulants) long-term use B12 deficiency [facility] BLOOD DRAW Routine 02/18/2025 11: 51 AM CDT Malignant neoplasm of prostate (HCC) Cancer, metastatic to bone (HCC) High risk medications (not anticoagulants) long-term use B12 deficiency [facility] XF Routine 02/18/2025 11:50 AM CDT Malignant neoplasm of prostate (HCC) Cancer, metastatic to bone (HCC) CBC W AUTO DIFFERENTIAL (CANCER CARE) Routine 02/18/2025 10:38 AM CDT Malignant neoplasm of prostate (HCC) Cancer, metastatic to bone (HCC) High risk medications (not anticoagulants) long-term use B12 deficiency COMPREHENSIVE METABOLIC PANEL Routine 02/18/2025 10:38 AM CDT Malignant neoplasm of prostate (HCC) Cancer, metastatic to bone (HCC) High risk medications (not anticoagulants) long-term use PSA SERIAL Routine 02/18/2025 10:38 AM CDT Malignant neoplasm of prostate (HCC) Cancer, metastatic to bone (HCC) from Last 3 Months Results * (ABNORMAL) COMPREHENSIVE METABOLIC PANEL (04/20/2025 1:58 PM [facility]) Only the most recent of3 resultswithin the time period is included. Glucose 184(H) 70 - 99 mg/dL 04/20/2025 2:22 PM [facility] Sodium 136 136 - 145 mmol/L 04/20/2025 2:22 PM [facility] Potassium 4.1 3.5 - 5.1 mmol/L 04/20/2025 2:22 PM [facility] Chloride 106 98 - 107 mmol/L 04/20/2025 2:22 PM [facility] CO2 20(L) 22 - 29 mmol/L 04/20/2025 2:22 PM [facility] Calcium 9.5 8.4 - 10.4 mg/dL 04/20/2025 2:22 PM [facility] Anion Gap 10 6 - 16 mmol/L 04/20/2025 2:22 PM [facility] BUN 20 7 - 26 mg/dL 04/20/2025 2:22 PM [facility] Creatinine 1.15 0.72 - 1.25 mg/dL 04/20/2025 2:22 PM [facility] Alkaline Phosphatase 64 40 - 150 U/L 04/20/2025 2:22 PM [facility] ALT 21 6 - 57 U/L 04/20/2025 2:22 PM [facility] AST 25 10 - 48 U/L 04/20/2025 2:22 PM [facility] Protein Total 7.1 6.4 - 8.3 gm/dL 04/20/2025 2:22 PM [facility] Albumin 4.0 3.1 - 4.5 gm/dL 04/20/2025 2:22 PM [facility] Bilirubin Total 0.5 0.2 - 1.2 mg/dL 04/20/2025 2:22 PM [facility] eGFR by CKD-EPI 63(L) >=90 mL/min/1.7 3 m2 04/20/2025 2:22 PM [facility] Comment:Estimated Glomerular Filtration Rate (eGFR) calculated using the CKD-EPI Creatinine Equation (2020), per the National Kidney Foundation and [place] Society [employer]phrology recommendations. Blood BLOOD SPECIMEN / Unknown Clinic Draw / Unknown 04/20/2025 1:58 PM CDT 04/20/2025 2:04 PM CDT Ronna Darbyelmo TEST AND RESEARCH REACTOR OPERATOR-TUBE SPLICER LAB - CHEMISTRY PEYTON ABEBE Final Result [facility] [address] [id number] * (ABNORMAL) CBC W AUTO DIFFERENTIAL (CANCER CARE) (04/20/2025 1:52 PM CDT) Only the most recent of3 resultswithin the time period is included. WBC 5.1 4.4 - 10.7 x10E9/L 04/20/2025 2:00 PM CDT [facility] Neutrophils % 69.0 44.0 - 73.0 % 04/20/2025 2:00 PM CDT [facility] Lymphocytes % 20.3 20.0 - 43.0 % 04/20/2025 2:00 PM CDT [facility] Monocytes % 7.3 5.0 - 13.0 % 04/20/2025 2:00 PM CDT [facility] Eosinophils % 2.6 0.0 - 6.0 % 04/20/2025 2:00 PM CDT [facility] Basophils % 0.4 0.0 - 2.0 % 04/20/2025 2:00 PM CDT [facility] Immature Granulocytes 0.4 <=1 % 04/20/2025 2:00 PM CDT [facility] Neutrophil Absolute 3.50 2.01 - 7.14 x10E9/L 04/20/2025 2:00 PM CDT [facility] Lymphocytes Absolute 1.03(L) 1.07 - 3.94 x10E9/L 04/20/2025 2:00 PM CDT [facility] Monocytes Absolute 0.37 0.26 - 1.07 x10E9/L 04/20/2025 2:00 PM CDT [facility] Eosinophils Absolute 0.13 0 - 0.47 x10E9/L 04/20/2025 2:00 PM CDT [facility] Basophils Absolute 0.02 0 - 0.08 x10E9/L 04/20/2025 2:00 PM CDT [facility] RBC 4.25 3.80 - 5.40 x10E12/L 04/20/2025 2:00 PM CDT [facility] Hemoglobin 12.7 12.0 - 17.6 gm/dL 04/20/2025 2:00 PM CDT [facility] Hematocrit 38.4 35.2 - 51.7 % 04/20/2025 2:00 PM CDT [facility] MCV 90.4 80.7 - 98.3 fl 04/20/2025 2:00 PM CDT [facility] MCH 29.9 26.7 - 34.0 pg 04/20/2025 2:00 PM CDT [facility] MCHC 33.1 30.8 - 35.9 gm/dL 04/20/2025 2:00 PM CDT [facility] RDW-CV 14.0 12.1 - 14.9 % 04/20/2025 2:00 PM CDT [facility] Platelet Count 212 153 - 416 x10E9/L 04/20/2025 2:00 PM CDT [facility] MPV 9.3(L) 9.4 - 12.9 fl 04/20/2025 2:00 PM CDT [facility] NRBC 0.0 <=0 /100 WBC 04/20/2025 2:00 PM CDT [facility] Blood BLOOD SPECIMEN / Unknown 04/20/2025 1:52 PM CDT 04/20/2025 1:52 PM CDT Ronna Alexander TEST AND RESEARCH REACTOR OPERATOR-TUBE SPLICER LAB - HEMATOLOGY ORD ERABLES Final Result [facility] [address], [address] [place] [address], [facility] * (ABNORMAL) PSA SERIAL (04/20/2025 1:52 PM CDT) Only the most recent of3 resultswithin the time period is included. PSA 20.8(H) 0.0 - 4.0 ng/mL [facility] INSURANCE BILL Comment: Yariel ECLIA methodology. According to the [place] [employer], Serum PSA should decrease and [...] malignant disease. Blood BLOOD SPECIMEN / Unknown 04/20/2025 1:52 PM CDT 04/20/2025 Comment:Blood Release to [email or web address] INSURANCE BILL - 04/21/2025 5:10 PM CDT Performed at: [address] [place] [id number] Manual Plate Filler: Arun Rice PhD, Phone: [phone] Ronna Alexander APRN-TUBE SPLICER LAB - CHEMISTRY ORDE RABMARLEY Final Result [facility] INSURANCE BILL [address] [place] [address] * VITAMIN B12 (04/20/2025 1:52 PM CDT) Only the most recent of2 resultswithin the time period is included. Vitamin B12 512 213 - 816 pg/mL [facility] INSURANCE BILL Blood BLOOD SPECIMEN / Unknown 04/20/2025 1:52 PM CDT 04/20/2025 Comment:[facility] to [facility] INSURANCE BILL - 04/20/2025 9:08 PM CDT Performed at: [address] [place] [id number] Manual Plate Filler: Dolores Henley MD, Phone: [phone] Ronna Alexander TEST AND RESEARCH REACTOR OPERATOR-TUBE SPLICER LAB - CHEMISTRY ORDE RABLES Final Result [facility] INSURANCE BILL [address] [address] * [facility] BLOOD DRAW (02/18/2025 11:51 AM CDT) Blood Sent to [facility] 02/18/2025 1:00 PM CDT [facility] Comment:Collection and sendo ut completed. Blood BLOOD SPECIMEN / Unknown 02/18/2025 11:51 AM CDT 02/18/2025 11:51 AM CDT Daysi Osorio MD LAB - HEMATOLOGY PEYTON ABEBE Final Result [facility] [address] [id number] * [facility]us xF: xF+ Liquid Biopsy - 523 Genes (02/18/2025 11:50 AM CDT) Reason for Study To identify mutations relevant to patient's cancer. 02/28/2025 3:40 PM CDT [facility] Genetic Diseases Assessed Cancer 02/28/2025 3:40 PM CDT [facility] Description of Ranges of DNA Sequences Examined 523 gene liquid biopsy 02/28/2025 3:40 PM CDT [facility] Overall Interpretation positive 02/28/2025 3:40 PM CDT [facility] [email or web address] 02/28/2025 3:40 PM CDT [facility] Comment:[facility] link Low Coverage Regions CARM1, CUL4A, DNMT1, FANCC, HDAC2, MAPK1, MSH3, NFE2L2, NOTCH1, NOTCH2, PHLPP2, PIK3R2, PPP6C, PTPRT, RAD51C, RECQL4, RHOA, RXRA, SDHAF2, TERT, TGFBR1, TP53, TP63, ZNRF3 02/28/2025 3:40 PM CDT [facility] Tumor Mutational Butler 2.7 m/MB 02/28/2025 3:40 PM CDT [facility] Microsatellite Instability Note MSI-High not detected 02/28/2025 3:40 PM CDT [facility] Treatment Implications Note No reportable treatment options found. 02/28/2025 3:40 PM CDT [facility] Blood 02/18/2025 11:5 0 AM CDT 02/18/2025 11:34 AM CDT Narrative This result has genomic variants that were not included in this document. us Daysi Osorio MD LAB - GENETIC ORDERAB LES Final Result [facility] [address] [facility], [address] [phone] from Last 3 [place] [address] [facility] Address: [address] [place] [address] MEDICARE Care Teams Handkerchief Folder Relationship Specialty Start Date End Date Kunal Jensen DO PCP - General Internal Medicine 09/25/20 Ronna Alexander APRN-TUBE SPLICER [address] [facility] [address] [place] [phone] PCP - Attributed-MSS 01/06/25 [place] [id number] [facility] [address] [place] [address] Physical Medicine and Rehabilitation 02/05/23
--- OUTSIDE RECORDS SUMMARY | 2025-05-12 11:20 | XMS_ITS ---
Author Organization [facility] Address [address] [place] [address] Care Team Providers Care Sticker On Name Role Phone Kunal Jensen DO Primary Care Provider [phone] Norm Bridges MD Unavailable [phone] Ronna Alexander APRN-BURRER OPERATOR Unavailable [phone] Active Problems Problem Noted Date Diagnosed Date High risk medications (not anticoagulants) long- term use 08/11/2024 Thrombocytopenia 12/26/2020 Overview (12/26/2020): 03/27/2020 Dr. 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 Jo CARRERA Malignant neoplasm of prostate 01/14/2017 Cancer Staging:Clinical stage from 11/19/2016:Stage IIA(T1c, N0, M0, PSA: Less than 10, [place] 7) - Signed by Kunal Sorensen MD on 02/11/2017 Pathologic stage from 09/22/2017:Stage IV(TX, NX, M1b, PSA: 20 or greater) - Signed by Daysi Osorio MD on 09/22/2017 Overview (12/26/2020): 12/25/2020 OV, Dr. Osorio Current Treatment and Therapy Plans OP SUPPORT (LEUPROLIDE (LUPRON OR ELIGARD)) Q6 MONTHS* Plan Start Date:03/21/2022 Plan Provider:Daysi Osorio MD Linked Problems Malignant neoplasm of prosta te (HCC)Cancer, metastatic to bone (HCC) Treatment Medications Current Day (Day 1 , Cycle 8 - Planned for 10/19/2025) Next Day (Day 1, Cycle 9 - Planned for 04/19/2026) leuprolide (Lupron Depot 6 Month) leuprolide (Lupron Depot 6 Month) injection 45 mg leuprolide (Lupron Depot 6 Month) injection 45 mg Other Current Plans CYANOCOBALAMIN (VIT B-12) THERAPY PLAN* Plan Start Date:04/24/2020 Plan Provider:Daysi Osorio MD Linked Problems B12 deficiency Treatment Medications No medications scheduled. Past Treatment and Therapy Plans ONCOLOGY ADJUNCTIVE CARE Plan Name Start [...] medications scheduled. Therapy Complete Daysi Osorio MD Lifetime Dose Tracking * Chemical Lifetime Dose Automatic Entry Manual Entr y Dose Length Product 15.29 mGy-cm 15.29 mGy-cm 0 mGy-cm
[2025-05-12 13:20] LABS: Hemoglobin A1C 6.4 % (<5.7)
== END 2025-05-12 10:48 | disposition home or self-care (01) ==
LOC: ANHGOSHLAB 10:48
PROVIDERS: PCP Internal Medicine; Visit Provider Nurse Practitioner
DX: E11.9 Type 2 diabetes mellitus without complications (principal); Z79.4 Long term (current) use of insulin
CPT/HCPCS: 36415; 83036